=== PATIENT | female | born 1940 | race Caucasian/White ===

== ENCOUNTER 2019-12-07 10:01 | Emergency (ER) | payer MEDICARE, SELFPAY ==
--- NOTE | ~2019-12-07 | CT_ITS ---
EXAMINATION: CT abdomen pelvis w con INDICATION: Right flank pain after fall TECHNIQUE: Computed tomographic images of the abdomen and pelvis were obtained after the administrati on of 100 cc of Omnipaque 350 intravenous contrast. The dose-length product (DLP) was 565.49 mGy-cm. Automated exposure control and iterative reconstruction technique were employed. COMPARISON: 02/02/2017 FINDINGS: Minimal dependent atelectasis is present in the lung bases. The heart size is normal. The l iver, spleen, pancreas, gallbladder, and adrenal glands are normal. The kidneys are unremarkable. The re is calcified atherosclerosis of the aorta and many of the other arteries. No pathologically enlarg ed abdominal or pelvic lymph nodes are identified. There is no free intraperitoneal gas or evidence o f bowel obstruction. Colonic diverticulosis is present without evidence of diverticulitis. There is m oderate lumbar spondylosis. IMPRESSION: 1. No CT correlate for the patient's symptoms. Reviewed, dictated and finalized at location A. LABORER
[2019-12-07 10:06] VITALS: BP 155/66; PULSE 55; RESP 18; TEMP 36.3; O2SAT 100
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
[2019-12-07 10:48] LABS: Basophils Absolute Auto 0.1 K/mm3 (0.0-0.1); Basophils Percent Auto 1.1 % (0.2-1.2); Eosinophils Absolute Auto 0.2 K/mm3 (0-0.3); Eosinophils Percent Auto 2.2 % (0-4.4); Hematocrit 35.3 % (37.0-47.0); Hemoglobin 11.4 g/dL (12.0-15.0); Immature Granulocyte Absolute 0.07 K/mm3 (0.00-0.031); Immature Granulocyte Percent A 0.9 % (0-0.5); Lymphocytes Absolute Auto 1.63 K/mm3 (0.9-3.2); Lymphocytes Percent Auto 19.9 % (18.3-44.2); Mean Corpuscular HGB Conc 32.3 g/dl (32-36); Mean Corpuscular Hemoglobin 32.1 pg (26-34); Mean Corpuscular Volume 99.4 fl (80-100); Mean Platelet Volume 9.3 fl (7.4-10.4); Monocytes Percent Auto 12.1 % (2.6-8.5); Neutrophils Absolute Auto 5.2 K/mm3 (1.3-6.7); Neutrophils Percent Auto 63.8 % (45.5-73.1); Platelet Count Result 317 k/mm3 (150-375); Red Blood Count 3.55 M/mm3 (4.2-5.4); Red Cell Distribution Width 13.4 % (11.5-14.5); White Blood Count 8.2 K/mm3 (4.5-10.0)
[2019-12-07 11:00] LABS: Blood Urea Nitrogen 21 mg/dL (7-17); Calcium 8.8 mg/dL (8.4-10.2); Carbon Dioxide 26 mmol/L (22-30); Chloride 97 mmol/L (98-107); Estimated CRCL calculation 42 ml/min; Estimated Glomerular Filt Rate 60; Glucose 91 mg/dL (65-105); Potassium 4.3 mmol/L (3.4-5.0); Sodium 135 mmol/L (137-145)
[2019-12-07 11:17] LABS: Add Urine Microscopic? NO; Appearance Urine Clear (Clear); Bilirubin Urine Negative (Negative); Blood Urine Negative (Negative); Color Urine Straw (Yellow); Glucose Urine UA Negative (Negative); Ketones Urine Negative (Negative); Leukocyte Esterase Ur Negative LEU/UL (Negative); Nitrate Urine Negative (Negative); Protein Urine Negative (Negative); Urobilinogen Urine Negative mg/dL (<2.0)
[2019-12-07 12:34] VITALS: BP 146/70; PULSE 49; RESP 16; O2SAT 100
== END 2019-12-07 12:39 | disposition home or self-care (01) ==
PROVIDERS: Emergency Medicine Emergency Medical Services; Emergency Provider General Practice; PCP Family Medicine
DX: S39.92XA Unspecified injury of lower back, initial encounter (principal); I25.10 Atherosclerotic heart disease of native coronary artery without angina pectoris; I10 Essential (primary) hypertension; K21.9 Gastro-esophageal reflux disease without esophagitis; E07.9 Disorder of thyroid, unspecified; W22.09XA Striking against other stationary object, initial encounter
CPT/HCPCS: 36415; 74177; 80048; 81003; 85025; 96365; 99284; J0131; Q9967

== ENCOUNTER 2019-12-09 16:44 | Outpatient (CLI) | payer MEDICARE, SELFPAY ==
--- NOTE | ~2019-12-09 | XR_ITS ---
EXAMINATION: XR ribs RT 2V DATE: 12/09/2019 17:35 INDICATION: Right posterior rib pain. TECHNIQUE: 4 views of the right ribs were obtained. COMPARISON: Chest 2 views 06/25/2019 FINDINGS: There is no right-sided pneumonia, pleural effusion, or pneumothorax. The heart size is nor mal. IMPRESSION: 1. No rib fracture. Reviewed, dictated and finalized at location A. OR QUALITY ASSURANCE ENGINEER IMPRESSION: 1. No rib fracture.
== END 2019-12-09 16:45 | disposition home or self-care (01) ==
PROVIDERS: PCP Family Medicine; Visit Provider Family Medicine
DX: R07.81 Pleurodynia (principal)
CPT/HCPCS: 71100

== ENCOUNTER 2020-02-15 06:47 | Emergency (ER) | payer MEDICARE, SELFPAY ==
[2020-02-15] VITALS (15 sets, daily range): BP systolic 150–186; BP diastolic 71–84; PULSE 40–51; RESP 15–23; TEMP 36.8; O2SAT 97–100
--- NOTE | ~2020-02-15 | XR_ITS ---
XR shoulder RT min 2V 02/15/2020 08:04 Indication: Right shoulder pain movement. Procedure: 4 views right shoulder Comparison: No prior studies for comparison. Findings: No acute fracture, subluxation or dislocation. Anatomic alignment. Visualized lung parenchy ma is unremarkable. No focal soft tissue abnormality. Impression: 1: No acute bone or joint abnormality. Reviewed, dictated and finalized at location A. Impression: 1: No acute bone or joint abnormality.
--- NOTE | 2020-02-15 07:27 | PC.NURSE ---
assuming care of pt. Pt is A&Ox4. Pt complains of R arm pain. Pt states pain radiates down her arm. Pt saw her PCP last week and states pain woke her up this morning. Pt states she does not think it is a pinched nerve. Pt able to move extremity slightly but pain is making movement difficult. Pt has visitor at bedside. Pt and family aware of POC.
--- NOTE | 2020-02-15 07:47 | ECG_ITS ---
Measurements Intervals [place] Rate: 41 P: 56 IN: 150 QRS: 3 QRSD: 94 T: 59 QT: 472 QTc: 393 Interpretive Statements SINUS BRADYCARDIA RSR' IN V1 OR V2, CONSIDER RIGHT VENTRICULAR HYPERTROPHY OR RIGHT VCD MINIMAL Q WAVES- ANTEROLAT/LAT LEADS BASELINE ARTIFACT- II, III, AVF ABNORMAL ECG Electronically Signed On 02-15-2020 13:12:40 CDT by Geraldo Nobles D.O.
--- NOTE | 2020-02-15 07:49 | ED.EXTPRO ---
HPI - Extremity Problem General Chief complaint: Extremity Problem,Nontraumatic Stated complaint: arm pain Time Seen by Provider: 02/15/20 06:58 Source: patient and family Mode of arrival: ambulatory Limitations: no limitations History of Present Illness HPI Narrative: This patient is an 79 yo female who presents to ER for evaluation of right shoulder pain, posterior neck pain. Patient states she developed pain to right lower posterior neck that radiates to her right shoulder x 1 week ago. She was seen by her PCP on 02/11/20 for this pain, and she was prescribed a medrol dose joaquim. She has been taking intermittent ibuprofen for her pain. She reports her pain seems to be worsening in her right shoulder over the past 2 days. She has been having difficulty sleeping. She denies associated numbness, tingling, weakness, headache, dizziness, fever, nausea or vomiting. Her pain is worse with laying on the shoulder and movement of her shoulder . She also denies chest pain or sob. She states she is only here for her shoulder pain. MD Complaint: extremity pain Related Data Home Medications Medication Instructions Recorded Confirmed aspirin 81 mg tablet,delayed 81 mg PO DAILY 08/19/19 02/11/20 release levothyroxine 75 mcg tablet 75 mcg PO DAILY 08/19/19 02/11/20 metoprolol tartrate 25 mg tablet 6.25 mg PO BID tablet 08/19/19 02/11/20 isosorbide mononitrate 10 mg tablet 10 mg PO ONCE tablet 02/11/20 02/11/20 Allergies Allergy/AdvReac Type Severity Reaction Status Date / Time cefadroxil Allergy Unknown Unknown Verified 02/15/20 06:52 Sulfa (Sulfonamide Allergy Unknown rash Verified 02/15/20 06:52 Antibiotics) Review of Systems Constitutional: Constitutional: Denies chills and Denies fever(s) Cardiovascular: Cardiovascular: Denies chest pain Respiratory: Respiratory: Denies dyspnea Gastrointestinal: Gastrointestinal: Denies abdominal pain, Denies nausea and Denies vomiting Musculoskeletal: Musculoskeletal: Reports arthralgias (right shoulder) Neurologic: Denies focal weakness and Denies numbness PMFSH Past Medical History Medical History Coronary artery disease Elevated lipids Essential hypertension GERD (gastroesophageal reflux disease) Thyroid disease Surgical History Surgical History H/O: hysterectomy Status post primary angioplasty with coronary stent Social History Social History (Updated 02/11/20 @ 14:54 by Ilsa Baumann) Smoking status: Never smoker Second hand tobacco smoke exposure: No Alcohol intake: never Substance use: never Substance use type: does not use Gender identity (if verbalized by the patient): Female Exam Const: Orientation/consciousness: patient oriented x3 HENMT: Head: normocephalic and atraumatic Face and sinus: face symmetric Mouth: Yes Normal oral and palatal mucosa present Throat: posterior oropharynx normal and uvula midline Eyes: Conjunctivae: conjunctivae normal Pupils: Equal, round and reactive pupils present EOM: EOMs intact bilaterally Neck: Neck: no lymphadenopathy and no meningeal signs Resp: Effort & Inspection: normal respiratory effort Auscultation: clear to auscultation bilaterally, no rales and no wheezes Cardio: Rate: regular rate Rhythm: regular rhythm Peripheral pulses: Peripheral pulses 2+ throughout and radial pulses present bilateral Skin: General skin exam: normal color Rashes: no rashes Neuro: General: patient oriented x3, moves all extremities, no meningeal signs, no focal motor deficits and CN's II-XI intact bilaterally Speech: normal speech Extrem: Right upper extremity: normal capillary refill and shoulder/upper arm tenderness (right anterior shoulder) and abnormal ROM pain with active ROM and pain with passive ROM Course Reevaluation(s) Reevaluation #1: Patient is resting comfortably. She reports her p
[2020-02-15] MEDS: ONDANSETRON HCL ODT 4 MG TABLET PO (08:08)
[2020-02-15] MEDS: HYDROMORPHONE HCL 1 MG/ML INJ 0.5 MG IM (08:09)
[2020-02-15 08:47] LABS: Basophils Absolute Auto 0.1 K/mm3 (0.0-0.1); Basophils Percent Auto 0.7 % (0.2-1.2); Eosinophils Percent Auto 0.3 % (0-4.4); Hematocrit 38.7 % (37.0-47.0); Hemoglobin 12.6 g/dL (12.0-15.0); Immature Granulocyte Absolute 0.06 K/mm3 (0.00-0.031); Immature Granulocyte Percent A 0.6 % (0-0.5); Lymphocytes Absolute Auto 2.62 K/mm3 (0.9-3.2); Lymphocytes Percent Auto 25.3 % (18.3-44.2); Mean Corpuscular HGB Conc 32.6 g/dl (32-36); Mean Corpuscular Hemoglobin 31.7 pg (26-34); Mean Corpuscular Volume 97.5 fl (80-100); Mean Platelet Volume 9.2 fl (7.4-10.4); Monocytes Absolute Auto 1.2 K/mm3 (0.1-0.6); Monocytes Percent Auto 11.7 % (2.6-8.5); Neutrophils Absolute Auto 6.4 K/mm3 (1.3-6.7); Neutrophils Percent Auto 61.4 % (45.5-73.1); Platelet Count Result 351 k/mm3 (150-375); Red Blood Count 3.97 M/mm3 (4.2-5.4); Red Cell Distribution Width 13.4 % (11.5-14.5); White Blood Count 10.4 K/mm3 (4.5-10.0)
[2020-02-15 08:58] LABS: Alanine Aminotransferase 9 U/L (4-35); Alkaline Phosphatase 108 U/L (38-126); Aspartate Amino Transferase 20 U/L (14-36); Bilirubin,Total 0.4 mg/dL (0.2-1.3); Blood Urea Nitrogen 24 mg/dL (7-17); Calcium 8.9 mg/dL (8.4-10.2); Carbon Dioxide 28 mmol/L (22-30); Chloride 99 mmol/L (98-107); Estimated CRCL calculation 42 ml/min; Estimated Glomerular Filt Rate 60; Glucose 83 mg/dL (65-105); Potassium 4.3 mmol/L (3.4-5.0); Sodium 134 mmol/L (137-145)
== END 2020-02-15 09:43 | disposition home or self-care (01) ==
PROVIDERS: Emergency Provider General Practice; PCP Family Medicine
DX: M25.511 Pain in right shoulder (principal); I25.10 Atherosclerotic heart disease of native coronary artery without angina pectoris; I10 Essential (primary) hypertension; K21.9 Gastro-esophageal reflux disease without esophagitis; E07.9 Disorder of thyroid, unspecified; Z95.5 Presence of coronary angioplasty implant and graft; R00.1 Bradycardia, unspecified; R94.31 Abnormal electrocardiogram [ECG] [EKG]
CPT/HCPCS: 36415; 73030; 80053; 85025; 93005; 96372; 99283; A9270; J1170

== ENCOUNTER 2020-03-05 12:17 | Outpatient (CLI) | payer MEDICARE, SELFPAY ==
--- NOTE | ~2020-03-05 | XR_ITS ---
EXAMINATION: XR hip BI 2V w AP pelvis DATE: 03/05/2020 12:56 INDICATION: Hip pain TECHNIQUE: AP view the pelvis and two views of the hips were obtained. COMPARISON: 10/12/2019 FINDINGS: No fracture is identified. There is moderate bilateral hip osteoarthritis. Bone alignment i s normal. The visualized soft tissues are unremarkable. IMPRESSION: 1. Moderate bilateral hip osteoarthritis without acute findings. Reviewed, dictated and finalized at location A.
--- NOTE | ~2020-03-05 | XR_ITS ---
EXAMINATION: XR sacrum coccyx min 2V INDICATION: Sacrococcygeal disorders, not elsewhere classified TECHNIQUE: Three views of the sacrum and coccyx are obtained. COMPARISON: None available FINDINGS: There is a questionable age-indeterminate transverse fracture of the sacrum. No additional acute osseous findings are evident. Moderate lumbar spondylosis is noted. The bowel gas pattern is no rmal. IMPRESSION: 1. Possible age-indeterminate sacral fracture. Reviewed, dictated and finalized at location A.
== END 2020-03-05 12:18 | disposition home or self-care (01) ==
PROVIDERS: PCP Family Medicine; Visit Provider Physician Assistant
DX: Z91.81 History of falling (principal); M25.551 Pain in right hip; M25.552 Pain in left hip; M53.3 Sacrococcygeal disorders, not elsewhere classified; M16.0 Bilateral primary osteoarthritis of hip
CPT/HCPCS: 72220; 73521

== ENCOUNTER 2020-06-02 07:04 | Outpatient (NON) | payer MEDICARE, SELFPAY ==
[2020-06-02 18:54] LABS: SARS-CoV-2 RNA PCR Negative
== END 2020-06-02 07:05 ==
PROVIDERS: PCP Family Medicine; Visit Provider Physician Assistant
DX: Z20.828 Contact with and (suspected) exposure to other viral communicable diseases (principal); R05 Cough
CPT/HCPCS: 87635; C9803; U0003

== ENCOUNTER 2020-11-11 16:40 | Emergency (ER) | payer MEDICARE, SELFPAY ==
--- NOTE | ~2020-11-11 | XR_ITS ---
EXAMINATION: XR elbow RT min 3V DATE: 11/11/2020 17:08 INDICATION: Right elbow injury. TECHNIQUE: 4 views of right elbow were obtained. COMPARISON: None. FINDINGS: Bone alignment is normal. No fracture. Joint spaces are normal. There are enthesophytes at the medial and lateral humeral epicondyles. No elbow joint effusion. IMPRESSION: 1. No fracture. Reviewed, dictated and finalized at location A. ICLE BOARD SUPERVISOR IMPRESSION: 1. No fracture.
--- NOTE | ~2020-11-11 | XR_ITS ---
EXAMINATION: XR wrist RT min 3V DATE: 11/11/2020 17:07 INDICATION: Right wrist injury. TECHNIQUE: 4 views of right wrist were obtained. COMPARISON: Right wrist radiographs 05/05/16 FINDINGS: There is a comminuted fracture of distal radius with involvement of the distal articular mullen rface and distal radioulnar joint. The main distal fracture fragment demonstrates impaction and dorsa l angulation. There is 6 degrees dorsal tilt of the distal articular surface. Ulnar styloid is intact . There is mild osteoarthritis of first carpometacarpal joint. IMPRESSION: 1. Comminuted fracture of distal radius. Reviewed, dictated and finalized at location A. OMER CARE PROFESSIONAL
[2020-11-11 16:43] VITALS: BP 118/95; PULSE 87; RESP 18; TEMP 36.4; O2SAT 95
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
--- NOTE | 2020-11-11 17:25 | PC.NURSE ---
1725 - Patient uses walker and wheelchair at home with assistance of her due to prior stroke with residual weakness. Per wheelchair at home is available and he is home to take care of her and help her get around their home.
== END 2020-11-11 17:58 | disposition home or self-care (01) ==
PROVIDERS: Emergency Provider Emergency Medicine; PCP Family Medicine
DX: S52.571A Other intraarticular fracture of lower end of right radius, initial encounter for closed fracture (principal); I12.9 Hypertensive chronic kidney disease with stage 1 through stage 4 chronic kidney disease, or unspecified chronic kidney disease; N18.30 Chronic kidney disease, stage 3 unspecified; K21.9 Gastro-esophageal reflux disease without esophagitis; M19.90 Unspecified osteoarthritis, unspecified site; W01.0XXA Fall on same level from slipping, tripping and stumbling without subsequent striking against object, initial encounter
CPT/HCPCS: 29125; 73080; 73110; 99284

== ENCOUNTER 2021-05-23 20:42 | Emergency (ER) | payer MEDICARE, SELFPAY ==
--- NOTE | ~2021-05-23 | XR_ITS ---
EXAMINATION: XR hand RT 2V DATE: 05/23/2021 21:04 INDICATION: Right hand injury. TECHNIQUE: 2 views of right hand were obtained. COMPARISON: Right wrist radiograph 11/11/2020. FINDINGS: Bone alignment is normal. There is a healed fracture of distal radius. There is chronic amp utation of third digit at the middle phalanx. There is mild osteoarthritis of first carpometacarpal j oint and some of the metacarpophalangeal joints and interphalangeal joints. IMPRESSION: 1. Interval healing of a fracture of distal radius. 2. Mild polyarticular osteoarthritis. Reviewed, dictated and finalized at location A.
--- NOTE | ~2021-05-23 | XR_ITS ---
EXAMINATION: XR wrist RT 2V DATE: 05/23/2021 21:04 INDICATION: Right wrist injury and pain. TECHNIQUE: 2 views of right wrist were obtained. COMPARISON: Right wrist radiographs 11/11/2020 FINDINGS: There is a healed fracture of distal radius. The distal articular surface demonstrates 2 de grees dorsal angulation. No acute fracture. There is mild osteoarthritis of first carpometacarpal vincent nt. IMPRESSION: 1. Interval healing of a fracture of distal radius. 2. Mild osteoarthritis of first carpometacarpal joint. Reviewed, dictated and finalized at location A.
[2021-05-23 20:49] VITALS: BP 153/69; PULSE 51; RESP 16; TEMP 36.1; O2SAT 98
--- NOTE | 2021-05-23 22:57 | ED.FALL ---
HPI - Fall General Chief Complaint: Fall Stated Complaint: fall, right hand pain Time Seen by Provider: 05/23/21 22:45 Source: patient and family Mode of arrival: ambulatory Limitations: no limitations History of Present Illness HPI Narrative: 80-year-old female History of a stroke which sometimes gives her some trouble with walking especially when is dark out Tonight she fell when she let the dog out and landed on her right wrist That wrist was fractured about 3 months ago and she is worried she might of reinjured it She has an abrasion but no deformity No other injuries and there were no symptoms of any sort prior to the incident Related Data Allergies Allergy/AdvReac Type Severity Reaction Status Date / Time cefadroxil Allergy Unknown Itching Verified 04/12/21 09:58 Sulfa (Sulfonamide Allergy Unknown rash Verified 04/12/21 09:58 Antibiotics) Review of Systems Musculoskeletal: Musculoskeletal: Denies back pain, Reports arthralgias, Denies joint swelling and Denies muscle cramps Neurologic: Reports focal weakness (Old) and Denies numbness PMFSH Past Medical History Medical History Bilateral hip pain Chronic kidney disease, stage 3 unspecified Coronary artery disease Elevated lipids Essential hypertension Fracture of distal end of radius GERD (gastroesophageal reflux disease) Osteoarthritis, hip, bilateral Pain in the coccyx Sacral fracture Status post fall Thyroid disease Surgical History Surgical History H/O: hysterectomy Status post primary angioplasty with coronary stent Family History Family History Sibling Hypertension Family history of diabetes mellitus in first degree relative Family history of arthritis Patient's brother is in good health Mother Family history of pancreatic cancer Diabetes mellitus Family history of cardiovascular disease Family history of malignant neoplasm Father Asthma Other Family history of tuberculosis Social History Social History Smoking status: Never smoker Second hand tobacco smoke exposure: No Alcohol intake: never Substance use: never Substance use type: does not use Gender identity (if verbalized by the patient): Female Exam Const: General: cooperative, no acute distress and alert Orientation/consciousness: patient oriented x3 (alert) Other: Very pleasant lady in no distress HENMT: Head: normal to inspection, normocephalic, atraumatic, no contusions and no hematomas Other: Hard of hearing Eyes: Conjunctivae: conjunctivae normal EOM: EOMs intact bilaterally Neck: Neck: normal visual inspection, supple and no JVD Resp: Effort & Inspection: normal respiratory effort and not labored Auscultation: other (BS =) Skin: General skin exam: normal color and no rashes or lesions noted Neuro: General: patient oriented x3 (alert) and moves all extremities Speech: normal speech Extrem: Other: Minor abrasion on the right palm There is still just a little bit of swelling to the distal part of the right forearm but no new deformities and only minimally tender with good range of motion Neurovascular intact Psych: Affect: normal affect Course Vital Signs Vital signs: Vital Signs Temperature 36.1 C L 05/23/21 20:49 Pulse Rate 51 L 05/23/21 20:49 Respiratory Rate 16 05/23/21 20:49 Blood Pressure 153/69 H 05/23/21 20:49 Pulse Oximetry 98 05/23/21 20:49 Temperature 36.1 C L 05/23/21 20:49 Pulse Rate 51 L 05/23/21 20:49 Respiratory Rate 16 05/23/21 20:49 Blood Pressure 153/69 H 05/23/21 20:49 Pulse Oximetry 98 05/23/21 20:49 MDM - Fall Imaging Data Radiologist's impression: ITS Impressions Wrist X-Ray 05/23/21 21:05 IMPRESSION: 1. Interval healing of a frac
== END 2021-05-23 23:20 | disposition home or self-care (01) ==
PROVIDERS: Emergency Provider Emergency Medicine; PCP Family Medicine
DX: S60.511A Abrasion of right hand, initial encounter (principal); I69.398 Other sequelae of cerebral infarction; R26.89 Other abnormalities of gait and mobility; I12.9 Hypertensive chronic kidney disease with stage 1 through stage 4 chronic kidney disease, or unspecified chronic kidney disease; N18.30 Chronic kidney disease, stage 3 unspecified; I25.10 Atherosclerotic heart disease of native coronary artery without angina pectoris; K21.9 Gastro-esophageal reflux disease without esophagitis; M16.0 Bilateral primary osteoarthritis of hip; E07.9 Disorder of thyroid, unspecified; Z95.5 Presence of coronary angioplasty implant and graft; M18.9 Osteoarthritis of first carpometacarpal joint, unspecified; S52.501D Unspecified fracture of the lower end of right radius, subsequent encounter for closed fracture with routine healing; W19.XXXD Unspecified fall, subsequent encounter; W18.30XA Fall on same level, unspecified, initial encounter
CPT/HCPCS: 73100; 73120; 99283

== ENCOUNTER → 2021-06-01 09:51 | Outpatient (CLI) | payer MEDICARE, SELFPAY ==
--- NOTE | ~2021-06-01 | XR_ITS ---
EXAMINATION: XR chest 2V DATE: 06/01/2021 10:18 INDICATION: Shortness of breath TECHNIQUE: frontal and lateral views of the chest were obtained. COMPARISON: Chest radiograph dated 12/09/2019 FINDINGS: The lungs remain clear with no focal airspace opacities, pulmonary edema, pleural effusion or pneumot horax. The cardiomediastinal silhouette is normal. Mild thoracic spondylosis. IMPRESSION: 1. No acute cardiopulmonary disease. Reviewed, dictated and finalized at location A.
== END ==
PROVIDERS: PCP Family Medicine; Visit Provider Physician Assistant
DX: R06.02 Shortness of breath (principal)
CPT/HCPCS: 71046

== ENCOUNTER 2021-07-02 15:07 | Outpatient (CLI) | payer MEDICARE, SELFPAY ==
--- NOTE | ~2021-07-02 | CT_ITS ---
EXAMINATION: CT abdomen pelvis wo con DATE: 07/02/2021 15:47 INDICATION: Right upper quadrant abdominal pain TECHNIQUE: Computed tomography (CT) of the abdomen and pelvis was performed without intravenous contr ast. Automated exposure control and iterative reconstruction technique were employed. Exam dose: 582 .61 mGy-cm total exam DLP. COMPARISON: 12/07/2019 CT abdomen pelvis FINDINGS: The lung bases are clear. Normal heart size. No pericardial or pleural effusion. The liver, gallbladder, bile ducts, spleen, pancreas, pancreatic duct, and adrenal glands and kidneys appear unremarkable on this limited noncontrast examination. No urinary tract calculus or hydrourete ronephrosis. The urinary bladder is unremarkable. Status post hysterectomy. There is atherosclerotic calcification but normal caliber of the abdominal aorta. No intraperitoneal or retroperitoneal or pelvic mass lesion or adenopathy or ascites. Small sliding hiatal hernia. There are numerous diverticula of the sigmoid and descending colon primarily; no CT evidence of diver ticulitis. The appendix is not visualized. No bowel obstruction, bowel wall thickening, pneumatosis o r intraperitoneal free air is detected. Degenerative changes of the thoracic and lumbar spine. Bilateral hip osteoarthritis. No suspicious os teolytic or osteoblastic lesions are noted. IMPRESSION: Small sliding hiatal hernia Diverticulosis of the colon; no CT evidence of diverticulitis Status post hysterectomy Reviewed, dictated and finalized at [facility]. Reviewed, dictated and finalized at location [facility].
== END 2021-07-02 15:08 | disposition home or self-care (01) ==
LOC: ANHIMG 15:13
PROVIDERS: PCP Family Medicine; Visit Provider Physician Assistant
DX: R10.9 Unspecified abdominal pain (principal); K44.9 Diaphragmatic hernia without obstruction or gangrene; K57.30 Diverticulosis of large intestine without perforation or abscess without bleeding
CPT/HCPCS: 74176

== ENCOUNTER → 2021-12-08 12:34 | Outpatient (CLI) | payer MEDICARE, SELFPAY ==
--- NOTE | ~2021-12-08 | MM_ITS ---
EXAMINATION: MM screening billy BI w tomas HISTORY: Screening mammogram TECHNIQUE: Craniocaudal and mediolateral oblique 3-D tomosynthesis images were obtained and synthetic 2-D images were generated. CAD analysis was submitted and interpreted. COMPARISON: 11/02/2018 bilateral screening mammogram 10/31/2017 diagnostic left mammogram and limited left breast ultrasound 10/13/2017 bilateral screening mammogram BREAST PARENCHYMAL COMPOSITION: There are scattered areas of fibroglandular density. FINDINGS: There is no evidence of suspicious mass, calcification, or architectural distortion to sugg est malignancy in either breast. There has been no suspicious interval change. IMPRESSION: 1. No mammographic evidence of malignancy. 2. Recommend routine screening mammography in one year. BI-RADS Category 1: Negative Reviewed, dictated and finalized at location [facility]. O MATE
== END ==
PROVIDERS: PCP Family Medicine; Visit Provider Family Medicine
DX: Z12.31 Encounter for screening mammogram for malignant neoplasm of breast (principal)
CPT/HCPCS: 77063; 77067

== ENCOUNTER 2022-04-06 12:35 | Outpatient (CLI) | payer MEDICARE, SELFPAY ==
--- NOTE | 2022-04-06 12:48 | ECHO_ITS ---
Patient Info Name: Quynh Cui Age: 81 years : 1940 Gender: Female Ht: 63 in Wt: 165 lbs BSA: 1.85 m2 HR: 119 bpm BP: 118 / 82 mmHg Heart Rhythm: Atrial Fibrillation Technical Quality: Good Exam Date: 04/06/2022 1:01 PM Exam Location: [facility] Patient Status: Outpatient Admit Date: 04/06/2022 Staff Ordering Physician: Geraldo Nobles DO Toll Booth Operator: Celine Cunningham RDCS Attending Provider: Geraldo Nobles DO Exam Type: CA echo doppler color flow Study Info Indications I51.89 - Other ill-defined heart diseases Complete two-dimensional, color flow and Doppler transthoracic echocardiogram is performed. Summary 1. Complete two-dimensional, color flow and Doppler transthoracic echocardiogram is performed. 2. Left ventricular chamber dimension is normal. 3. Left ventricular systolic function is normal, estimated at 55-60%. 4. The left ventricular diastolic function is abnormal. 5. E/e' 10 is mildly elevated. 6. Atrial fibrillation. 7. Right ventricular systolic function is reduced and with abnormal TAPSE 1.5 cm. 8. Left atrial chamber dimension is mildly enlarged. 9. There is trace aortic valve regurgitation. 10. There is trace mitral valve regurgitation. 11. There is mild tricuspid valve regurgitation. 12. No pulmonary hypertension, estimated pulmonary arterial systolic pressure is 27 mmHg. 13. There is trace pulmonic regurgitation. Left Ventricle E/e' 10 is mildly elevated. Atrial fibrillation. Left ventricular chamber dimension is normal. Left ventricular systolic function is normal, estimated at 55-60%. The left ventricular diastolic function is abnormal. Right Ventricle Right ventricular systolic function is reduced and with abnormal TAPSE 1.5 cm. Right ventricular chamber dimension is normal. Left Atria Left atrial chamber dimension is mildly enlarged. Right Atria Right atrial chamber dimension is normal. Aortic Valve The aortic valve is trileaflet. There is no aortic valve stenosis. There is trace aortic valve regurgitation. Pulmonic Valve There is trace pulmonic regurgitation. Mitral Valve There is no mitral valve stenosis. There is trace mitral valve regurgitation. Tricuspid Valve There is mild tricuspid valve regurgitation. No pulmonary hypertension, estimated pulmonary arterial systolic pressure is 27 mmHg. Pericardium/Pleural There is no pericardial effusion. Inferior Vena Cava Normal inferior vena cava with >50% collapse upon inspiration consistent with normal right atrial pressure, 5 mmHg. Aorta The aortic root size at the sinus of Valsalva is normal. Left Ventricular Outflow Tract Name Value Normal LVOT 2D LVOT Diameter 1.8 cm LVOT Doppler LVOT Peak Gradient 3 mmHg LVOT Mean Gradient 2 mmHg LVOT VTI 18 cm LVOT VTI/AV VTI Ratio 0.8 LVOT Stroke Volume 46 ml LVOT CO 3.2 l/min LVOT CI 1.7 l/min/m2 Pulmo
== END 2022-04-06 12:36 | disposition home or self-care (01) ==
PROVIDERS: PCP Family Medicine; Visit Provider Internal Medicine Cardiovascular Disease
DX: I36.1 Nonrheumatic tricuspid (valve) insufficiency (principal)
CPT/HCPCS: 93306

== ENCOUNTER 2022-04-13 10:06 | Emergency (ER) | payer MEDICARE, SELFPAY ==
[2022-04-13] VITALS (10 sets, daily range): BP systolic 117–145; BP diastolic 83–96; PULSE 100–138; RESP 19–22; TEMP 36.4; O2SAT 96–99
--- NOTE | ~2022-04-13 | XR_ITS ---
EXAMINATION: XR chest 2V 04/13/2022 11:28 INDICATION: Dyspnea PROCEDURE: 2 view chest COMPARISON: Comparison to multiple prior studies sequentially, with oldest reviewed study dated 05/26. FINDINGS: The lungs are clear. The cardiomediastinal silhouette is within normal limits. There are no pleural effusions. There is no pneumothorax suspected. IMPRESSION: 1: NO ACUTE CARDIOPULMONARY DISEASE. Reviewed, dictated and finalized at location [facility].
--- NOTE | 2022-04-13 10:21 | ECG_ITS ---
Measurements Intervals [place] Rate: 120 P: [place]: 0 QRS: 7 QRSD: 78 T: 46 QT: 293 QTc: 416 Interpretive Statements ATRIAL FIBRILLATION WITH RAPID VENTRICULAR RESPONSE NONSPECIFIC ST CHANGES COMPARED TO ECG 02/15/2020 08:19:13 ATRIAL FIBRILLATION NOW PRESENT ST (T WAVE) DEVIATION NOW PRESENT Electronically Signed On 04-13-2022 12:45:39 CDT by Jessika Pascal M.D.
--- NOTE | 2022-04-13 10:40 | ED.SOB ---
HPI - SOB/Dyspnea General Chief Complaint: Shortness of Breath/Dyspnea Stated Complaint: having trouble breathing Time Seen by Provider: 04/13/22 10:22 Source: patient History of Present Illness HPI Narrative: Patient presents with shortness of breath. Reports been feeling short of breath for the past couple weeks she has been seeing her cullet crusher she is attempted albuterol inhaler which does give her some relief today her symptoms are more severe she is unable to the cullet crusher that she came the ER for further evaluation. Reports sensation of not being able to get enough air denies any focal areas of pain such as chest pain headache. She denies any nausea vomiting or diarrhea. Related Data Home Medications Medication Instructions Recorded Confirmed losartan 25 mg tablet tablet 04/13/22 04/13/22 Allergies Allergy/AdvReac Type Severity Reaction Status Date / Time cefadroxil Allergy Unknown Itching Verified 04/13/22 10:14 Sulfa (Sulfonamide Allergy Unknown rash Verified 04/13/22 10:14 Antibiotics) Review of Systems Review of Systems: CONSTITUTIONAL: Denies fever, chills, or sweats. EYES: Denies visual changes, redness, or discharge. ENT: Denies rhinorrhea, congestion, sore throat, or otalgia. CARDIOVASCULAR: Denies chest pain, palpitations, or edema. RESPIRATORY: Reports chronic cough which is improved this morning reports shortness of breath GASTROINTESTINAL: Denies abdominal pain, nausea, vomiting, or diarrhea. GENITOURINARY: Denies dysuria or hematuria. SKIN: Denies rash or itching. MUSCULOSKELETAL: Denies back pain, joint pain, or myalgia. NEUROLOGIC: Denies headache, numbness, dizziness, or weakness. PSYCHIATRIC: Denies anxiety or depression. All systems reviewed & are unremarkable except as noted in HPI and below PMFSH Past Medical History Medical History Bilateral hip pain Chronic kidney disease, stage 3 unspecified Coronary artery disease Elevated lipids Essential hypertension Fracture of distal end of radius GERD (gastroesophageal reflux disease) Obesity Osteoarthritis, hip, bilateral Pain in the coccyx Sacral fracture Status post fall Thyroid disease Surgical History Surgical History H/O: hysterectomy Status post primary angioplasty with coronary stent Family History Family History Sibling Hypertension Family history of diabetes mellitus in first degree relative Family history of arthritis Patient's brother is in good health Mother Family history of pancreatic cancer Diabetes mellitus Family history of cardiovascular disease Family history of malignant neoplasm Father Asthma Other Family history of tuberculosis Social History Social History Social History: Smoking status: Never smoker Second hand tobacco smoke exposure: No Alcohol intake: never Substance use: never Substance use type: does not use Gender identity (if verbalized by the patient): Female Sexual Orientation (if Verbalized by the Patient): Straight or Heterosexual Exam Narrative: GENERAL: Well-appearing, well-nourished, and in no acute distress. HEAD: Normocephalic, atraumatic. EYES: PERRLA and EOMI. ENT: Nares clear, no rhinorrhea or epistaxis. Mucous membranes moist. NECK: Supple. No masses. No JVD CHEST: Clear to auscultation. No respiratory distress. No wheezes rales or rhonchi HEART: Irregular tachycardia no murmur heard. Normal peripheral pulses. ABDOMEN: Soft, nontender, nondistended, normal active bowel sounds. EXTREMITIES: Normal range of motion. No edema. SKIN: Warm, dry, no rash. NEURO: No focal deficits. Alert and oriented x3. PSYCH: Normal mood and affect. Course Reevaluation(s) Reevaluation #1: Patient now resting comfortably feels much i
[2022-04-13 10:53] LABS: Basophils Absolute Auto 0.1 K/mm3 (0.0-0.1); Basophils Percent Auto 1.1 % (0.2-1.2); Eosinophils Absolute Auto 0.1 K/mm3 (0-0.3); Eosinophils Percent Auto 1.1 % (0-4.4); Hematocrit 37.4 % (37.0-47.0); Hemoglobin 12.2 g/dL (12.0-15.0); Immature Granulocyte Absolute 0.04 K/mm3 (0.00-0.031); Immature Granulocyte Percent A 0.5 % (0-0.5); Lymphocytes Absolute Auto 1.42 K/mm3 (0.9-3.2); Lymphocytes Percent Auto 16.1 % (18.3-44.2); Mean Corpuscular HGB Conc 32.6 g/dl (32-36); Mean Corpuscular Hemoglobin 31.9 pg (26-34); Mean Corpuscular Volume 97.7 fl (80-100); Mean Platelet Volume 9.1 fl (7.4-10.4); Monocytes Absolute Auto 0.9 K/mm3 (0.1-0.6); Monocytes Percent Auto 10.3 % (2.6-8.5); Neutrophils Absolute Auto 6.3 K/mm3 (1.3-6.7); Neutrophils Percent Auto 70.9 % (45.5-73.1); Platelet Count Result 369 k/mm3 (150-375); Red Blood Count 3.83 M/mm3 (4.2-5.4); Red Cell Distribution Width 13.7 % (11.5-14.5); White Blood Count 8.8 K/mm3 (4.5-10.0)
[2022-04-13 10:58] LABS: Appearance Urine Clear (Clear); Bilirubin Urine Negative (Negative); Blood Urine Negative (Negative); Color Urine Yellow (Yellow); Glucose Urine UA Negative (Negative); Ketones Urine Negative (Negative); Leukocyte Esterase Ur Negative LEU/UL (Negative); Nitrate Urine Negative (Negative); Protein Urine Negative (Negative); Urobilinogen Urine 0.2 mg/dL (<2.0); pH Urine 5.5 (5.0-9.0)
[2022-04-13 11:03] LABS: Add Urine Microscopic? NO
[2022-04-13] MEDS: SODIUM CHLORIDE 0.9% IV 500 ML 999 ML IV CONT (11:09)
[2022-04-13] MEDS: dilTIAZem HCl INJ 25 MG/5 ML VIAL 10 MG IV PUSH (11:10)
[2022-04-13 11:16] LABS: Alanine Aminotransferase 6 U/L (6-35); Albumin Level 3.7 g/dL (3.5-5.1); Alkaline Phosphatase 126 U/L (38-126); Anion Gap 7 mmol/L (8-16); Aspartate Amino Transferase 22 U/L (14-36); Bilirubin,Total 0.4 mg/dL (0.2-1.3); Blood Urea Nitrogen 23 mg/dL (7-17); Calcium 8.7 mg/dL (8.4-10.2); Carbon Dioxide 23 mmol/L (22-30); Chloride 104 mmol/L (98-107); Estimated CRCL calculation 38 ml/min; Estimated Glomerular Filt Rate 53; Glucose 93 mg/dL (65-110); Potassium 4.3 mmol/L (3.4-5.0); Sodium 134 mmol/L (137-145)
== END 2022-04-13 12:44 | disposition home or self-care (01) ==
PROVIDERS: Emergency Provider Emergency Medicine; PCP Family Medicine
DX: I48.91 Unspecified atrial fibrillation (principal); I12.9 Hypertensive chronic kidney disease with stage 1 through stage 4 chronic kidney disease, or unspecified chronic kidney disease; N18.30 Chronic kidney disease, stage 3 unspecified; K21.9 Gastro-esophageal reflux disease without esophagitis; M19.90 Unspecified osteoarthritis, unspecified site; I25.10 Atherosclerotic heart disease of native coronary artery without angina pectoris
CPT/HCPCS: 36415; 71046; 80053; 81003; 85025; 93005; 96361; 96374; 99284; J7040

== ENCOUNTER 2022-04-21 11:54 | Emergency (ER) | payer MEDICARE, SELFPAY ==
[2022-04-21] VITALS (24 sets, daily range): BP systolic 98–132; BP diastolic 67–98; PULSE 64–124; RESP 18–24; TEMP 36.6; O2SAT 97–99
--- NOTE | ~2022-04-21 | XR_ITS ---
EXAMINATION: XR chest 2V DATE: 04/21/2022 12:41 INDICATION: Shortness of breath TECHNIQUE: AP and lateral views of the chest are obtained. COMPARISON: 04/13/2022 FINDINGS: The lungs are free of acute opacities. No pleural effusion or pneumothorax. The cardiomedia stinal silhouette is normal. There is moderate thoracic spondylosis. IMPRESSION: 1. No acute cardiopulmonary abnormality. Reviewed, dictated and finalized at location B.
--- NOTE | 2022-04-21 12:14 | ECG_ITS ---
Measurements Intervals [place] Rate: 106 P: [place]: 0 QRS: 18 QRSD: 91 T: 52 QT: 329 QTc: 438 Interpretive Statements ATRIAL FIBRILLATION WITH RAPID VENTRICULAR RESPONSE INCOMPLETE RIGHT BUNDLE BRANCH BLOCK BASELINE ARTIFACT- I, II, III, AVR, AVL, V4 ABNORMAL ECG Electronically Signed On 04-21-2022 13:04:15 CDT by Geraldo Nobles D.O.
--- NOTE | 2022-04-21 12:42 | PC.NURSE ---
Tele monitoring and pul ox applied at 1215
[2022-04-21 12:44] LABS: Basophils Absolute Auto 0.1 K/mm3 (0.0-0.1); Basophils Percent Auto 1.3 % (0.2-1.2); Eosinophils Absolute Auto 0.2 K/mm3 (0-0.3); Eosinophils Percent Auto 1.8 % (0-4.4); Hematocrit 37.7 % (37.0-47.0); Hemoglobin 12.5 g/dL (12.0-15.0); Immature Granulocyte Absolute 0.05 K/mm3 (0.00-0.031); Immature Granulocyte Percent A 0.6 % (0-0.5); Lymphocytes Absolute Auto 1.64 K/mm3 (0.9-3.2); Lymphocytes Percent Auto 19.2 % (18.3-44.2); Mean Corpuscular HGB Conc 33.2 g/dl (32-36); Mean Corpuscular Hemoglobin 32.3 pg (26-34); Mean Corpuscular Volume 97.4 fl (80-100); Mean Platelet Volume 9.4 fl (7.4-10.4); Monocytes Absolute Auto 0.9 K/mm3 (0.1-0.6); Neutrophils Absolute Auto 5.6 K/mm3 (1.3-6.7); Neutrophils Percent Auto 66.1 % (45.5-73.1); Platelet Count Result 376 k/mm3 (150-375); Red Blood Count 3.87 M/mm3 (4.2-5.4); Red Cell Distribution Width 13.8 % (11.5-14.5); White Blood Count 8.5 K/mm3 (4.5-10.0)
[2022-04-21 12:54] LABS: INR 1.4; Prothrombin Time 16.4 Seconds (11.1-14.7)
[2022-04-21 12:55] LABS: Partial Thromboplastin Time 35.2 SECONDS (22.3-36.8)
[2022-04-21 12:56] LABS: Alanine Aminotransferase 6 U/L (6-35); Albumin Level 3.9 g/dL (3.5-5.1); Alkaline Phosphatase 154 U/L (38-126); Anion Gap 7 mmol/L (8-16); Aspartate Amino Transferase 20 U/L (14-36); Bilirubin,Total 0.4 mg/dL (0.2-1.3); Blood Urea Nitrogen 23 mg/dL (7-17); Calcium 8.4 mg/dL (8.4-10.2); Carbon Dioxide 24 mmol/L (22-30); Chloride 104 mmol/L (98-107); Estimated CRCL calculation 38 ml/min; Estimated Glomerular Filt Rate 53; Glucose 93 mg/dL (65-110); Lipase 194 U/L (23-300); Potassium 4.6 mmol/L (3.4-5.0); Sodium 135 mmol/L (137-145)
[2022-04-21 13:06] LABS: Troponin I < 0.012 ng/mL (0.000-0.034)
[2022-04-21] MEDS: METOPROLOL TARTRATE 6.25 MG TABLET PO (13:25)
--- NOTE | 2022-04-21 13:58 | ED.WEAKNESS ---
HPI - Weakness General Chief complaint: Weakness Stated complaint: a-fib, sob Time Seen by Provider: 04/21/22 12:25 History of Present Illness HPI Narrative: Patient is an 81-year-old female who presents ER with irregular heartbeat. Has history of atrial fibrillation. Recently seen in the ER and given diltiazem to slow down her heart rate. She had her metoprolol reinitiated. Apparently she was taking 1/4 tablet of 25 mg metoprolol twice a day and was supposed to be increased to half tablet twice a day. She has not increased her dosage. She is having no chest pain or chest pressure. No dizziness. She reports just generalized fatigue. complains that she does not want to get out of bed and she just sleeps all the time. Patient reports chronic cough and chronic shortness of breath related to asthma and she will use her albuterol which helps. Patient has no new swelling in her legs. No orthopnea. Related Data Home Medications Medication Instructions Recorded Confirmed losartan 25 mg tablet tablet 04/13/22 04/21/22 Allergies Allergy/AdvReac Type Severity Reaction Status Date / Time cefadroxil Allergy Unknown Itching Verified 04/21/22 11:04 Sulfa (Sulfonamide Allergy Unknown rash Verified 04/21/22 11:04 Antibiotics) Review of Systems Review of Systems: All systems reviewed & are unremarkable except as noted in HPI and below Constitutional: Constitutional: Denies chills, Reports fatigue and Denies fever(s) ENT: Denies nasal congestion and Denies sore throat Cardiovascular: Cardiovascular: Denies chest pain, Denies rapid heart rate and Denies radiating jaw, neck or arm pain Respiratory: Respiratory: Reports cough, Reports dyspnea and Denies wheezing Gastrointestinal: Gastrointestinal: Denies abdominal pain, Denies nausea and Denies vomiting [facility] Past Medical History Medical History Bilateral hip pain Chronic kidney disease, stage 3 unspecified Coronary artery disease Elevated lipids Essential hypertension Fracture of distal end of radius GERD (gastroesophageal reflux disease) Obesity Osteoarthritis, hip, bilateral Pain in the coccyx Sacral fracture Status post fall Thyroid disease Surgical History Surgical History H/O: hysterectomy Status post primary angioplasty with coronary stent Family History Family History Sibling Hypertension Family history of diabetes mellitus in first degree relative Family history of arthritis Patient's brother is in good health Mother Family history of pancreatic cancer Diabetes mellitus Family history of cardiovascular disease Family history of malignant neoplasm Father Asthma Other Family history of tuberculosis Social History Social History Social History: Smoking status: Never smoker Second hand tobacco smoke exposure: No Alcohol intake: never Substance use: never Substance use type: does not use Gender identity (if verbalized by the patient): Female Sexual Orientation (if Verbalized by the Patient): Straight or Heterosexual Exam Narrative: GENERAL: Well-appearing, well-nourished, and in no acute distress. HEAD: Normocephalic, atraumatic. NECK: Supple. CHEST: Clear to auscultation. No respiratory distress. HEART: Irregular regular rate and rhythm. Normal peripheral pulses. ABDOMEN: Soft, nontender, nondistended. EXTREMITIES: Normal range of motion. No edema. SKIN: Warm, dry, no rash. NEURO: Alert and oriented x3. PSYCH: Normal mood and affect. Course Course Emergency Course: Heart rate improved with diltiazem and second half of oral medication for home. Discharge with follow-up with career resource technician which is scheduled for tomorrow. Vital Signs Vital signs: Vital Signs Temperature 97.8 F
[2022-04-21] MEDS: dilTIAZem HCl INJ 25 MG/5 ML VIAL 10 MG IV PUSH (14:39)
[2022-04-21 14:52] LABS: SARS-CoV-2 RNA PCR Negative
[2022-04-21 15:51] LABS: Troponin I < 0.012 ng/mL (0.000-0.034)
== END 2022-04-21 15:41 | disposition home or self-care (01) ==
PROVIDERS: Emergency Medicine; Emergency Provider Emergency Medicine; PCP Family Medicine
DX: I48.91 Unspecified atrial fibrillation (principal); I12.9 Hypertensive chronic kidney disease with stage 1 through stage 4 chronic kidney disease, or unspecified chronic kidney disease; N18.30 Chronic kidney disease, stage 3 unspecified; Z20.822 Contact with and (suspected) exposure to COVID-19
CPT/HCPCS: 36415; 71046; 80053; 83690; 84484; 85025; 85610; 85730; 93005; 96374; 99284; A9270; C9803; U0003; U0005

== ENCOUNTER 2022-07-27 09:51 | Emergency (ER) | payer MEDICARE, SELFPAY ==
[2022-07-27] VITALS (7 sets, daily range): BP systolic 102–128; BP diastolic 78–93; PULSE 88–101; RESP 15–20; TEMP 36.8; O2SAT 90–100
--- NOTE | ~2022-07-27 | CT_ITS ---
EXAMINATION: CT abdomen pelvis w con DATE: 07/27/2022 11:53 INDICATION: Low abdominal pain. TECHNIQUE: Computed tomography (CT) of the abdomen and pelvis was performed with 100 mL Omnipaque 350 intravenous contrast. Automated exposure control and iterative reconstruction technique were employe d. The dose-length product was 557.10 mGy-cm. COMPARISON: CT abdomen and pelvis 07/02/2021 FINDINGS: The visualized portions of the lung bases demonstrate mild atelectasis. No pleural effusion . There is left atrial enlargement of the heart. No pericardial effusion. There is a small sliding hi atal hernia. The liver, gallbladder, spleen, pancreas, and adrenal glands are normal. There is cortic al thinning of the kidneys. There is diverticulosis of the colon without evidence of diverticulitis. The appendix is not visualized. There are no pathologically enlarged lymph nodes. There is no free in traperitoneal fluid. There is thoracolumbar levoscoliosis and severe lumbar spondylosis. IMPRESSION: 1. Small sliding hiatal hernia. Reviewed, dictated and finalized at location A.
--- NOTE | ~2022-07-27 | XR_ITS ---
EXAMINATION: XR chest 2V DATE: 07/27/2022 11:04 INDICATION: Cough and fatigue. TECHNIQUE: Frontal and lateral views of the chest were obtained. COMPARISON: Chest 2 views 04/21/22 FINDINGS: The patient is rotated to her left on the frontal view. No pneumonia, pleural effusion, or pneumothorax. The heart size is normal. IMPRESSION: 1. No acute cardiopulmonary disease. Reviewed, dictated and finalized at location A.
--- NOTE | 2022-07-27 09:59 | ECG_ITS ---
Measurements Intervals [place] Rate: 100 P: [place]: 0 QRS: 25 QRSD: 85 T: 53 QT: 334 QTc: 433 Interpretive Statements ATRIAL FIBRILLATION WITH RAPID VENTRICULAR RESPONSE POSSIBLE RIGHT VENTRICULAR CONDUCTION DELAY [RSR (QR) IN V1/V2] ABNORMAL RHYTHM ECG COMPARED TO ECG 04/21/2022 12:18:08 NO SIGNIFICANT CHANGES Electronically Signed On 07-27-2022 15:23:53 CDT by Mirian Berry M.D.
[2022-07-27 10:35] LABS: Basophils Absolute Auto 0.1 K/mm3 (0.0-0.1); Basophils Percent Auto 0.8 % (0.2-1.2); Eosinophils Absolute Auto 0.1 K/mm3 (0-0.3); Eosinophils Percent Auto 1.8 % (0-4.4); Hemoglobin 12.5 g/dL (12.0-15.0); Immature Granulocyte Absolute 0.03 K/mm3 (0.00-0.031); Immature Granulocyte Percent A 0.4 % (0-0.5); Lymphocytes Absolute Auto 1.01 K/mm3 (0.9-3.2); Lymphocytes Percent Auto 12.9 % (18.3-44.2); Mean Corpuscular HGB Conc 32.9 g/dl (32-36); Mean Corpuscular Hemoglobin 32.2 pg (26-34); Mean Corpuscular Volume 97.9 fl (80-100); Mean Platelet Volume 9.3 fl (7.4-10.4); Monocytes Absolute Auto 0.8 K/mm3 (0.1-0.6); Monocytes Percent Auto 9.8 % (2.6-8.5); Neutrophils Absolute Auto 5.8 K/mm3 (1.3-6.7); Neutrophils Percent Auto 74.3 % (45.5-73.1); Platelet Count Result 330 k/mm3 (150-375); Red Blood Count 3.88 M/mm3 (4.2-5.4); Red Cell Distribution Width 13.8 % (11.5-14.5); White Blood Count 7.9 K/mm3 (4.5-10.0)
[2022-07-27 10:47] LABS: INR 1.4; Prothrombin Time 16.9 Seconds (11.1-14.7)
[2022-07-27 10:48] LABS: Partial Thromboplastin Time 34.9 SECONDS (22.3-36.8)
[2022-07-27 10:51] LABS: Alanine Aminotransferase 10 U/L (6-35); Albumin Level 4.1 g/dL (3.5-5.1); Alkaline Phosphatase 94 U/L (38-126); Anion Gap 11 mmol/L (8-16); Aspartate Amino Transferase 30 U/L (14-36); Blood Urea Nitrogen 20 mg/dL (7-17); Calcium 8.9 mg/dL (8.4-10.2); Carbon Dioxide 22 mmol/L (22-30); Chloride 102 mmol/L (98-107); Estimated CRCL calculation 37 ml/min; Estimated Glomerular Filt Rate 53; Glucose 116 mg/dL (65-110); Lipase 156 U/L (23-300); Magnesium 1.8 mg/dL (1.6-2.3); Potassium 4.9 mmol/L (3.4-5.0); Sodium 135 mmol/L (137-145)
[2022-07-27 11:11] LABS: Lactic Acid Reflex 0.7 mmol/L (0.7-2.0)
--- NOTE | 2022-07-27 11:17 | ED.DIZZY ---
HPI - Dizziness General Chief Complaint: Dizziness Stated Complaint: dizzy, afib monday Time Seen by Provider: 07/27/22 10:14 Source: patient, RN notes reviewed and old records reviewed Mode of arrival: ambulatory Limitations: other (poor historian) History of Present Illness HPI Narrative: This is an 82 year old female with history of chronic afib who presents for evaluation of dizziness. Patient states she started feeling dizziness on monday and it has been improving. She states she thinks she feels like this when she is in atrial fibrillation. Her reports cough and weakness for 2 days. Patient denies chest pain, fever, or shortness of breath. She is unsure nausea. She has intermittent back pain but denies any pain now. She thinks she may have a uti but denies dysuria or hematuria. Related Data Home Medications Medication Instructions Recorded Confirmed furosemide 20 mg tablet 20 mg DAILY 07/27/22 Allergies Allergy/AdvReac Type Severity Reaction Status Date / Time cefadroxil Allergy Unknown Itching Verified 07/27/22 10:08 Sulfa (Sulfonamide Allergy Unknown rash Verified 07/27/22 10:08 Antibiotics) Review of Systems Review of Systems: All systems reviewed & are unremarkable except as noted in HPI and below Constitutional: Constitutional: Denies chills, Denies fatigue, Denies fever(s) and Reports weakness ENT: Denies nasal congestion and Denies sore throat Cardiovascular: Cardiovascular: Denies chest pain and Denies radiating jaw, neck or arm pain Respiratory: Respiratory: Reports cough and Denies dyspnea Gastrointestinal: Gastrointestinal: Denies diarrhea, Denies nausea and Denies vomiting Genitourinary: Genitourinary: Denies dysuria and Denies flank pain [facility] Past Medical History Medical History Bilateral hip pain Chronic kidney disease, stage 3 unspecified Coronary artery disease Elevated lipids Essential hypertension Fracture of distal end of radius GERD (gastroesophageal reflux disease) Obesity Osteoarthritis, hip, bilateral Pain in the coccyx Sacral fracture Status post fall Thyroid disease Surgical History Surgical History H/O: hysterectomy Status post primary angioplasty with coronary stent Family History Family History Sibling Hypertension Family history of diabetes mellitus in first degree relative Family history of arthritis Patient's brother is in good health Mother Family history of pancreatic cancer Diabetes mellitus Family history of cardiovascular disease Family history of malignant neoplasm Father Asthma Other Family history of tuberculosis Social History Social History Social History: Smoking status: Never smoker Second hand tobacco smoke exposure: No Alcohol intake: never Substance use: never Substance use type: does not use Gender identity (if verbalized by the patient): Female Sexual Orientation (if Verbalized by the Patient): Straight or Heterosexual Exam Const: General: no acute distress and alert Nutritional Appearance: well nourished Orientation/consciousness: patient oriented x3 HENMT: Head: normal to inspection Ears: TM's normal bilaterally Neck: Neck: normal visual inspection Chest: Chest palpation & inspection: normal inspection of the chest Resp: Effort & Inspection: normal respiratory effort Auscultation: clear to auscultation bilaterally Cardio: Rate: regular rate Rhythm: abnormal rhythm GI: GI Palp: Yes Soft to palpation, Yes Tenderness to palpation present (GI) (LLQ), No Guarding due to palpation present (GI) and No Rigid due to palpation Auscultation: normal bowel sounds Back/Spine/Pelvis: Back: no CVA tenderness Skin: General skin exam: normal color Tank
[2022-07-27 11:21] LABS: NT Pro B Type Natriuretic Pept 2820 pg/mL (5-100)
[2022-07-27 11:27] LABS: Add Urine Microscopic? YES; Appearance Urine Cloudy (Clear); Bacteria Urine 4+ /hpf; Bilirubin Urine Negative (Negative); Blood Urine 1+ (Negative); Color Urine Yellow (Yellow); Glucose Urine UA Negative (Negative); Ketones Urine Negative (Negative); Leukocyte Esterase Ur 2+ LEU/UL (Negative); Mucus Urine Rare /lpf; Nitrate Urine Positive (Negative); Protein Urine Negative (Negative); RBC Urine 0-2 /hpf (0-2); Specific Grav Ur 1.013 (1.001-1.035); Squamous Epithelial Cell Urine Occasional /hpf (Few); Urobilinogen Urine Negative mg/dL (<2.0); WBC Urine 31-50 /hpf
[2022-07-27 11:43] LABS: Influenza A QL RT-PCR Negative (Negative); Influenza B QL RT-PCR Negative (Negative); SARS-CoV-2 RNA PCR Negative
== END 2022-07-27 13:51 | disposition home or self-care (01) ==
PROVIDERS: Emergency Provider General Practice; PCP Family Medicine
DX: N39.0 Urinary tract infection, site not specified (principal); I48.20 Chronic atrial fibrillation, unspecified; Z20.822 Contact with and (suspected) exposure to COVID-19; I12.9 Hypertensive chronic kidney disease with stage 1 through stage 4 chronic kidney disease, or unspecified chronic kidney disease; N18.30 Chronic kidney disease, stage 3 unspecified; I25.10 Atherosclerotic heart disease of native coronary artery without angina pectoris; K21.9 Gastro-esophageal reflux disease without esophagitis; M16.0 Bilateral primary osteoarthritis of hip; E07.9 Disorder of thyroid, unspecified; E66.9 Obesity, unspecified; Z68.30 Body mass index [BMI] 30.0-30.9, adult; K44.9 Diaphragmatic hernia without obstruction or gangrene; Z79.01 Long term (current) use of anticoagulants; R94.31 Abnormal electrocardiogram [ECG] [EKG]
CPT/HCPCS: 36415; 51701; 71046; 74177; 80053; 81001; 83605; 83690; 83735; 83880; 85025; 85610; 85730; 87077; 87086; 87186; 87502; 93005; 99284; C9803; Q9967; U0003; U0005

== ENCOUNTER 2022-09-13 16:14 | Emergency (ER) | payer MEDICARE, SELFPAY ==
--- NOTE | ~2022-09-13 | XR_ITS ---
EXAMINATION: XR chest 2V Exam Date/Time: 09/13/2022 17:40 ADVERTISEMENT COMPOSITOR HISTORY: cough Comparison: 07/27/2022. RESULT: Lines, tubes, and devices: None. Lungs and pleura: Ill-defined streaky bibasilar opacities. Cardiomediastinal silhouette: Stable. Other: No acute osseous or upper abdominal finding. IMPRESSION: Mild bibasilar atelectasis/consolidation. Reviewed, dictated and finalized at location K. RTISEMENT COMPOSITOR
[2022-09-13 16:30] VITALS: BP 131/84; PULSE 117; RESP 20; TEMP 37.2; O2SAT 99
[2022-09-13 17:21] LABS: Influenza A QL RT-PCR Negative (Negative); Influenza B QL RT-PCR Negative (Negative); SARS-CoV-2 RNA PCR Negative
--- NOTE | 2022-09-13 17:48 | ED.GENADULT ---
HPI - General Adult General Chief complaint: Upper Respiratory Infection Stated complaint: chills Time Seen by Provider: 09/13/22 17:29 History of Present Illness HPI narrative: 82-year-old female history of early stage dementia, A. fib, anxiety depression, CAD, CHF, hyperlipidemia and hypothyroidism presents to the emergency room for evaluation of feeling cold . Patient states around 1:00 this afternoon she was lying in bed talking on the phone managing her checkbook, when she felt a wave of cold to come over her. Patient states that she was unable to get warmed up. Patient was under the blankets, called out to her asking for an aspirin. She then proceeded to tell him she has come to the emergency room for further evaluation. Between patient's triage time and obtaining the history, patient states that she was able to successfully warm up. Denies headache, body aches, chest pain, shortness of breath. Related Data Home Medications Medication Instructions Recorded Confirmed furosemide 20 mg tablet 20 mg DAILY 07/27/22 07/29/22 Allergies Allergy/AdvReac Type Severity Reaction Status Date / Time cefadroxil Allergy Unknown Itching Verified 07/29/22 15:23 Sulfa (Sulfonamide Allergy Unknown rash Verified 07/29/22 15:23 Antibiotics) Review of Systems Review of Systems: CONSTITUTIONAL: Reports chills EYES: Denies visual changes, redness, or discharge. ENT: Denies rhinorrhea, congestion, sore throat, or otalgia. CARDIOVASCULAR: Denies chest pain, palpitations, or edema. RESPIRATORY: Denies cough or dyspnea. GASTROINTESTINAL: Denies abdominal pain, nausea, vomiting, or diarrhea. GENITOURINARY: Denies dysuria or hematuria. SKIN: Denies rash or itching. MUSCULOSKELETAL: Denies back pain, joint pain, or myalgia. NEUROLOGIC: Denies headache, numbness, dizziness, or weakness. PSYCHIATRIC: Denies anxiety or depression. [facility] Past Medical History Medical History Bilateral hip pain Chronic kidney disease, stage 3 unspecified Coronary artery disease Elevated lipids Essential hypertension Fracture of distal end of radius GERD (gastroesophageal reflux disease) Obesity Osteoarthritis, hip, bilateral Pain in the coccyx Sacral fracture Status post fall Thyroid disease Surgical History Surgical History H/O: hysterectomy Status post primary angioplasty with coronary stent Family History Family History Sibling Hypertension Family history of diabetes mellitus in first degree relative Family history of arthritis Patient's brother is in good health Mother Family history of pancreatic cancer Diabetes mellitus Family history of cardiovascular disease Family history of malignant neoplasm Father Asthma Other Family history of tuberculosis Social History Social History Social History: Smoking status: Never smoker Second hand tobacco smoke exposure: No Alcohol intake: never Substance use: never Substance use type: does not use Gender identity (if verbalized by the patient): Female Sexual Orientation (if Verbalized by the Patient): Straight or Heterosexual Exam Narrative: GENERAL: Well-appearing, well-nourished, no physical limitations, and in no acute distress. HEAD: Normocephalic, atraumatic. EYES: Conjunctivae normal, PERRLA and EOMI. CHEST: Clear to auscultation. No respiratory distress. No wheezes rales or rhonchi. No tenderness. HEART: Irregular rate and irregular rhythm no murmur heard. Normal peripheral pulses. ABDOMEN: Soft, nontender, nondistended, normal active bowel sounds. EXTREMITIES: Normal range of motion. No edema. No clubbing or cyanosis SKIN: Warm, dry, no rash. No noted wounds NEURO: No focal deficits. Alert and oriented x3. MAEW. CN's II-X
[2022-09-13 18:01] LABS: RSV RNA, RT-PCR Negative (Negative)
[2022-09-13 18:30] LABS: Basophils Absolute Auto 0.1 K/mm3 (0.0-0.1); Basophils Percent Auto 0.5 % (0.2-1.2); Eosinophils Percent Auto 0.2 % (0-4.4); Hematocrit 38.2 % (37.0-47.0); Hemoglobin 12.9 g/dL (12.0-15.0); Immature Granulocyte Absolute 0.04 K/mm3 (0.00-0.031); Immature Granulocyte Percent A 0.3 % (0-0.5); Lymphocytes Absolute Auto 0.39 K/mm3 (0.9-3.2); Lymphocytes Percent Auto 3.2 % (18.3-44.2); Mean Corpuscular HGB Conc 33.8 g/dl (32-36); Mean Corpuscular Hemoglobin 31.6 pg (26-34); Mean Corpuscular Volume 93.6 fl (80-100); Monocytes Absolute Auto 0.5 K/mm3 (0.1-0.6); Neutrophils Absolute Auto 11.2 K/mm3 (1.3-6.7); Neutrophils Percent Auto 91.8 % (45.5-73.1); Platelet Count Result 279 k/mm3 (150-375); Red Blood Count 4.08 M/mm3 (4.2-5.4); Red Cell Distribution Width 13.9 % (11.5-14.5); White Blood Count 12.2 K/mm3 (4.5-10.0)
[2022-09-13 18:52] LABS: Troponin I < 0.012 ng/mL (0.000-0.034)
== END 2022-09-13 19:28 | disposition home or self-care (01) ==
PROVIDERS: Emergency Medicine; Emergency Provider Nurse Practitioner Family; PCP Family Medicine
DX: R68.83 Chills (without fever) (principal); Z20.822 Contact with and (suspected) exposure to COVID-19; I12.9 Hypertensive chronic kidney disease with stage 1 through stage 4 chronic kidney disease, or unspecified chronic kidney disease; N18.30 Chronic kidney disease, stage 3 unspecified; K21.9 Gastro-esophageal reflux disease without esophagitis; M19.90 Unspecified osteoarthritis, unspecified site; I25.10 Atherosclerotic heart disease of native coronary artery without angina pectoris
CPT/HCPCS: 36415; 71046; 84443; 84484; 85025; 87634; 87636; 99284

== ENCOUNTER 2022-09-21 15:51 | Outpatient (CLI) | payer MEDICARE, SELFPAY ==
--- NOTE | ~2022-09-21 | CT_ITS ---
EXAMINATION: CT diagnostic chest wo con DATE: 09/21/2022 16:09 INDICATION: Cough, shortness of breath. Abnormal chest radiograph. TECHNIQUE: Computed tomography (CT) of the chest was performed without intravenous contrast. Automate d exposure control and iterative reconstruction technique were employed. Exam dose: 138.34 mGy-cm to selena exam DLP. COMPARISON: 09/13/2022 2 view chest FINDINGS: Normal heart size. Prominent coronary artery calcifications. There is aortic calcification. Aortic diameter is within upper normal range. No hilar or mediastinal mass lesion or lymphadenopathy. No pericardial or pleural effusion. Small sliding hiatal hernia. Mild bilateral apical scarring. There is a focal groundglass infiltrate in the posterolateral left upper lobe, measuring up to approx imately 1.9 cm maximal vertical, 1.5 cm transverse and millimeters AP dimension. This is not evident on 09/13/2022 2 view chest. The lung santos are otherwise clear. Prominent degenerative disc disease in the lower cervical spine. There is degenerative spurring of th e thoracic spine. No suspicious osteolytic or osteoblastic lesions are noted. IMPRESSION: Focal left upper lobe probable pulmonary infectious or inflammatory infiltrate; neoplas m is less likely. Consider short-term CT thorax follow-up to ensure complete clearing, in order to ex clude neoplasm Reviewed, dictated and finalized at Location A. Reviewed, dictated and finalized at location B. RBOAT OPERATOR IMPRESSION: Focal left upper lobe probable pulmonary infectious or inflammator y infiltrate; neoplasm is less likely. Consider short-term CT thorax follow-up to ensure complete clearing, in order to exclude neoplasm
== END 2022-09-21 15:52 | disposition home or self-care (01) ==
LOC: ANHIMG 15:52
PROVIDERS: PCP Family Medicine; Visit Provider Physician Assistant
DX: R06.02 Shortness of breath (principal); R91.8 Other nonspecific abnormal finding of lung field
CPT/HCPCS: 71250

== ENCOUNTER 2022-10-19 16:04 | Outpatient (CLI) | payer MEDICARE, SELFPAY ==
--- NOTE | ~2022-10-19 | CT_ITS ---
CT Scan of the Chest without Contrast: Clinical Indication: Abnormal chest CT Technique: Contiguous sections were acquired throughout the chest without intravenous contrast. Dose reduction technique was used on this scan by utilizing automated exposure control and iterative recon struction technique. The dose-length product (DLP) was 146.60 mGy-cm. COMPARISON: 09/21/2022 Findings: There is no evidence of any significant mediastinal, hilar or axillary lymphadenopathy. Coronary yassine ry calcifications and/or possibly stent present. No aortic aneurysm. There is no evidence of pleural or pericardial effusion. Stable focal groundglass lesion in the peripheral left upper lobe measuring 1.9 cm in maximum diamete r (axial image 40). Images through the upper abdomen reveal no abnormalities. Impression: Stable 1.9 cm groundglass focal opacity in the left upper lobe. Persistence of this lesion raises the possibility of a neoplastic lesion such as bronchoalveolar cell carcinoma. Consider continued follow -up versus tissue sampling. Reviewed, dictated and finalized at [facility]. IO MUSICIAN Impression: Stable 1.9 cm groundglass focal opacity in the left upper lobe. Persistence of this lesion raises the possibility of a neoplastic lesion such as bronchoalveol ar cell carcinoma. Consider continued follow-up versus tissue sampling.
== END 2022-10-19 16:05 | disposition home or self-care (01) ==
PROVIDERS: PCP Family Medicine; Visit Provider Physician Assistant
DX: R05.3 Chronic cough (principal); R06.02 Shortness of breath; R93.89 Abnormal findings on diagnostic imaging of other specified body structures
CPT/HCPCS: 71250

== ENCOUNTER 2022-10-26 19:28 | Emergency (ER) | payer MEDICARE, SELFPAY ==
--- NOTE | ~2022-10-26 | XR_ITS ---
EXAM: XR knee LT 3V DATE: 10/26/2022 21:25 HISTORY: Knee pain after fall. Patient unable to bear weight . COMPARISON: None available. FINDINGS: Normal mineralization. No fracture or dislocation. No lytic or blastic lesion. Tricompartm ental left knee osteoarthritis, severe in the medial compartment. No erosion or periosteal change. So ft tissues within normal limits. IMPRESSION: No acute osseous finding in the left knee. Reviewed, dictated and finalized at location K. INIST BRAKE
--- NOTE | ~2022-10-26 | XR_ITS ---
EXAM: XR ankle LT min 3V, XR tibia fibula LT 2V DATE: 10/26/2022 21:24 (accession [id number]), 10/26/2022 21:25 (accession [id number]) HISTORY: Pain to anterior lower left leg and left ankle after fall today . COMPARISON: None available. FINDINGS: Normal mineralization. No fracture or dislocation. No lytic or blastic lesion. Degenerativ e left knee, tibiotalar, and midfoot change. Achilles and plantar enthesopathy. No erosion or periost eal change. Soft tissues within normal limits. IMPRESSION: No acute osseous finding in the left tibia, fibula, or ankle. Reviewed, dictated and finalized at location K. R PRESSER IMPRESSION: No acute osseous finding in the left tibia, fibula, or ankle.
--- NOTE | ~2022-10-26 | XR_ITS ---
EXAM: XR hip LT 2V w AP pelvis DATE: 10/26/2022 21:25 HISTORY: Left hip pain after fall today . COMPARISON: 03/05/2020. FINDINGS: Decreased mineralization. No fracture or dislocation. No lytic or blastic lesion. Degenera tive change in the lower lumbar spine bilateral hips and symphysis pubis. No erosion or periosteal ch wayne. Soft tissues within normal limits. IMPRESSION: No acute osseous finding in the pelvis or left hip. Reviewed, dictated and finalized at location K. TICAL NURSING INSTRUCTOR
[2022-10-26 19:29] VITALS: BP 118/85; PULSE 116; RESP 20; TEMP 36.2; O2SAT 97
[2022-10-26] MEDS: ACETAMINOPHEN 500 MG TABLET 1000 MG PO (21:18)
[2022-10-26 21:22] VITALS: BP 130/101; PULSE 91; RESP 18; O2SAT 99
--- NOTE | 2022-10-26 22:39 | ED.FALL ---
HPI - Fall General Chief Complaint: Fall Stated Complaint: fall, L leg pain Time Seen by Provider: 10/26/22 20:46 Source: patient and family Mode of arrival: wheelchair Limitations: no limitations History of Present Illness complaint: fall Onset (ago): hour(s) (8) Fall from: down stairs (#) Fall witnessed: yes, by family Place fall occurred: home Loss of consciousness: none Prolonged down time: no Symptoms prior to fall: none Context: tripped/slipped Location of injury - extremities: Left: knee, lower leg and ankle Severity: severe Quality: aching Related Data Allergies Allergy/AdvReac Type Severity Reaction Status Date / Time cefadroxil Allergy Unknown Itching Verified 10/26/22 21:18 Sulfa (Sulfonamide Allergy Unknown rash Verified 10/26/22 21:18 Antibiotics) Review of Systems Review of Systems: CONST: No fever. HEENT: No head trauma or neck trauma C/V: No chest pain RESP: No cough GI: No abdominal pain : No dysuria. M/S: Pain from left knee down to ankle SKIN: No rash. NEURO: [No headache or focal numbness or weakness] PSYCH: [No depression] PMFSH Past Medical History Medical History Bilateral hip pain Chronic kidney disease, stage 3 unspecified Coronary artery disease Elevated lipids Essential hypertension Fracture of distal end of radius GERD (gastroesophageal reflux disease) Obesity Osteoarthritis, hip, bilateral Pain in the coccyx Sacral fracture Status post fall Thyroid disease Surgical History Surgical History H/O: hysterectomy Status post primary angioplasty with coronary stent Family History Family History Sibling Hypertension Family history of diabetes mellitus in first degree relative Family history of arthritis Patient's brother is in good health Mother Family history of pancreatic cancer Diabetes mellitus Family history of cardiovascular disease Family history of malignant neoplasm Father Asthma Other Family history of tuberculosis Social History Social History Social History: Smoking status: Never smoker Second hand tobacco smoke exposure: No Alcohol intake: never Substance use: never Substance use type: does not use Gender identity (if verbalized by the patient): Female Sexual Orientation (if Verbalized by the Patient): Straight or Heterosexual Exam Narrative: EXAMINATION OF ORGAN SYSTEMS/BODY AREAS: Constitutional: Vital signs per nursing GENERAL: Resting comfortably in bed but winces every time she is moved HEAD: Normal with no signs of head trauma. EYES: EOMI, conjunctiva normal ENT: Hearing grossly intact LUNGS: Nonlabored breathing. HEART: [Regular rate and rhythm] ABD: [Soft], [nontender to palpation] EXT: Normal range of motion, there is tenderness to palpation at the ankle and knee; DP pulses intact SKIN: [No rashes or lesions.] NEURO: [Alert and oriented x 3. No gross focal sensory or strength deficits.] PSYCH: Normal affect Course Vital Signs Vital signs: Vital Signs Temperature 97.2 F L 10/26/22 19:29 Pulse Rate 116 H 10/26/22 19:29 Respiratory Rate 20 10/26/22 19:29 Blood Pressure 118/85 10/26/22 19:29 Pulse Oximetry 97 10/26/22 19:29 Oxygen Delivery Room Air 10/26/22 19:29 Temperature 97.2 F L 10/26/22 19:29 Pulse Rate 91 10/26/22 21:22 Respiratory Rate 18 10/26/22 21:22 Blood Pressure 130/101 H 10/26/22 21:22 Pulse Oximetry 99 10/26/22 21:22 Oxygen Delivery Room Air 10/26/22 19:29 MDM - Fall MDM Narrative Medical decision making narrative: 82-year-old female who presents after mechanical fall, denies any head trauma or loss of consciousness, she is able to ambulate with a knee brace but with pain. Vital signs stable, she is neurovascularly intact, I will o
== END 2022-10-26 23:04 | disposition home or self-care (01) ==
PROVIDERS: Emergency Provider Emergency Medicine; PCP Family Medicine
DX: S89.92XA Unspecified injury of left lower leg, initial encounter (principal); S99.912A Unspecified injury of left ankle, initial encounter; I12.9 Hypertensive chronic kidney disease with stage 1 through stage 4 chronic kidney disease, or unspecified chronic kidney disease; N18.30 Chronic kidney disease, stage 3 unspecified; I25.10 Atherosclerotic heart disease of native coronary artery without angina pectoris; K21.9 Gastro-esophageal reflux disease without esophagitis; E66.9 Obesity, unspecified; Z68.29 Body mass index [BMI] 29.0-29.9, adult; M16.0 Bilateral primary osteoarthritis of hip; E07.9 Disorder of thyroid, unspecified; Z90.710 Acquired absence of both cervix and uterus; Z95.5 Presence of coronary angioplasty implant and graft; W10.9XXA Fall (on) (from) unspecified stairs and steps, initial encounter
CPT/HCPCS: 73502; 73562; 73590; 73610; 99284; A9270

== ENCOUNTER 2022-11-01 14:08 | Outpatient (CLI) | payer MEDICARE, SELFPAY ==
--- NOTE | ~2022-11-01 | CT_ITS ---
EXAMINATION: CT brain wo con DATE: 11/01/2022 15:10 INDICATION: Altered mental status. TECHNIQUE: Computed tomography (CT) of the head was performed without intravenous contrast. The mA wa s adjusted according to patient size. Iterative reconstruction technique was employed. The dose-lengt h product was 605.33 mGy-cm. COMPARISON: Head CT 05/26/2017, 07/08/2010 FINDINGS: There are old infarcts in the temporal occipital regions, right worse than left. There are scattered areas of low attenuation in the cerebral white matter. There is no intracranial hemorrhage, acute infarction, or abnormal intracranial mass lesion. The ventricles are normal in size. There are likely changes of ocular lens replacement surgeries. There is mild mucosal thickening in the paranas al sinuses. There are likely changes of ocular lens replacement surgeries. The mastoid air cells are normal. IMPRESSION: 1. 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 2. Worsened moderate nonspecific cerebral white matter disease, which likely represents chronic small vessel ischemic disease. Reviewed, dictated and finalized at location A. O TECHNICIAN IMPRESSION: 1. 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 2. Worsened moderate nonspecific cerebral white matter disease, which likely re presents chronic small vessel ischemic disease.
--- NOTE | ~2022-11-01 | XR_ITS ---
EXAMINATION: XR chest 2V DATE: 11/01/2022 14:47 INDICATION: Cough TECHNIQUE: frontal and lateral views of the chest were obtained. COMPARISON: Chest radiograph dated 09/13/22 FINDINGS: The lungs are clear with no focal airspace opacities, pulmonary edema, pleural effusion or pneumothor ax. The cardiomediastinal silhouette is normal. Mild thoracic spondylosis. IMPRESSION: 1. No acute cardiopulmonary disease. Reviewed, dictated and finalized at location A. ND AND BINDER CONTROLLER
[2022-11-01 15:52] LABS: Basophils Percent Auto 0.8 % (0.2-1.2); Eosinophils Percent Auto 0.6 % (0-4.4); Hematocrit 40.3 % (37.0-47.0); Hemoglobin 13.2 g/dL (12.0-15.0); Immature Granulocyte Absolute 0.03 K/mm3 (0.00-0.031); Immature Granulocyte Percent A 0.6 % (0-0.5); Lymphocytes Absolute Auto 1.47 K/mm3 (0.9-3.2); Lymphocytes Percent Auto 30.4 % (18.3-44.2); Mean Corpuscular HGB Conc 32.8 g/dl (32-36); Mean Corpuscular Hemoglobin 32.3 pg (26-34); Mean Corpuscular Volume 98.5 fl (80-100); Mean Platelet Volume 9.2 fl (7.4-10.4); Monocytes Absolute Auto 0.8 K/mm3 (0.1-0.6); Monocytes Percent Auto 15.5 % (2.6-8.5); Neutrophils Absolute Auto 2.5 K/mm3 (1.3-6.7); Neutrophils Percent Auto 52.1 % (45.5-73.1); Platelet Count Result 286 k/mm3 (150-375); Red Blood Count 4.09 M/mm3 (4.2-5.4); Red Cell Distribution Width 14.6 % (11.5-14.5); White Blood Count 4.8 K/mm3 (4.5-10.0)
[2022-11-01 15:57] LABS: Appearance Urine Clear (Clear); Bilirubin Urine Negative (Negative); Blood Urine 1+ (Negative); Color Urine Yellow (Yellow); Glucose Urine UA Negative (Negative); Ketones Urine Negative (Negative); Leukocyte Esterase Ur 1+ LEU/UL (Negative); Nitrate Urine Negative (Negative); Protein Urine Negative (Negative); Urobilinogen Urine 0.2 mg/dL (<2.0); pH Urine 5.5 (5.0-9.0)
[2022-11-01 16:02] LABS: Alanine Aminotransferase 13 U/L (6-35); Albumin Level 3.7 g/dL (3.5-5.1); Alkaline Phosphatase 99 U/L (38-126); Anion Gap 6 mmol/L (8-16); Aspartate Amino Transferase 29 U/L (14-36); Bilirubin,Total 0.5 mg/dL (0.2-1.3); Blood Urea Nitrogen 15 mg/dL (7-17); Calcium 8.4 mg/dL (8.4-10.2); Carbon Dioxide 25 mmol/L (22-30); Chloride 101 mmol/L (98-107); Estimated Glomerular Filt Rate 60; Glucose 92 mg/dL (65-110); Potassium 4.1 mmol/L (3.4-5.0); Sodium 132 mmol/L (137-145)
[2022-11-01 16:09] LABS: Mucus Urine Rare /lpf; Squamous Epithelial Cell Urine Rare /hpf (Few)
[2022-11-01 16:10] LABS: Add Urine Microscopic? YES
== END 2022-11-01 14:09 | disposition home or self-care (01) ==
PROVIDERS: PCP Family Medicine; Visit Provider Physician Assistant
DX: R41.82 Altered mental status, unspecified (principal); Z86.73 Personal history of transient ischemic attack (TIA), and cerebral infarction without residual deficits; R05.9 Cough, unspecified
CPT/HCPCS: 36415; 70450; 71046; 80053; 81001; 85025

== ENCOUNTER → 2023-02-02 09:40 | Outpatient (CLI) | payer MEDICARE, SELFPAY ==
--- NOTE | ~2023-02-02 | MM_ITS ---
EXAMINATION: MM screening billy BI w tomas HISTORY: Screening mammogram TECHNIQUE: Craniocaudal and mediolateral oblique 3-D tomosynthesis images were obtained and synthetic 2-D images were generated. CAD analysis was submitted and interpreted. COMPARISON: 12/08/2021, 11/02/2018, 10/31/2017, 10/13/2017 BREAST PARENCHYMAL COMPOSITION: The breasts are heterogeneously dense, which may obscure small masses . FINDINGS: No suspicious mass, calcification, or architectural distortion are identified in either roxana ast to suggest malignancy. There has been no suspicious interval change. IMPRESSION: 1. No mammographic evidence of malignancy. 2. Recommend routine screening mammography while the patient remains in good health. BI-RADS Category 1: Negative Reviewed, dictated and finalized at location A. IMPRESSION: 1. No mammographic evidence of malignancy. 2. Recommend routine screening mammography while the patient remains in good he alth. BI-RADS Category 1: Negative
== END ==
PROVIDERS: PCP Family Medicine; Visit Provider Physician Assistant
DX: Z12.31 Encounter for screening mammogram for malignant neoplasm of breast (principal)
CPT/HCPCS: 77063; 77067

== ENCOUNTER 2023-02-02 11:53 | Outpatient (CLI) | payer MEDICARE, SELFPAY ==
--- NOTE | ~2023-02-02 | CT_ITS ---
CT Scan of the Chest without Contrast: Clinical Indication: Right upper lobe infiltrate Technique: Contiguous sections were acquired throughout the chest without intravenous contrast. Dose reduction technique was used on this scan by utilizing automated exposure control and iterative recon struction technique. The dose-length product (DLP) was 166.01 mGy-cm. COMPARISON: 10/19/2022 and 09/21/2022 Findings: There is no evidence of any significant mediastinal, hilar or axillary lymphadenopathy. Coronary yassine ry calcifications are present. There is no evidence of pleural or pericardial effusion. 2.0 cm semisolid, probably groundglass opacities present at the left upper lobe (axial image 41), ess entially unchanged. No other pulmonary abnormality seen. Images through the upper abdomen reveal no abnormalities. Impression: Stable 2 cm semisolid lesion in the left upper lobe. Given persistence, this could reflect a low-grad e/indolent neoplasm such as bronchoalveolar cell carcinoma. Continued follow-up advised at a minimum. Consider tissue sampling as indicated. Reviewed, dictated and finalized at location . Impression: Stable 2 cm semisolid lesion in the left upper lobe. Given persistence, this co uld reflect a low-grade/indolent neoplasm such as bronchoalveolar cell carcinom a. Continued follow-up advised at a minimum. Consider tissue sampling as indica caleb.
== END 2023-02-02 11:54 | disposition home or self-care (01) ==
PROVIDERS: PCP Family Medicine; Visit Provider Internal Medicine Critical Care Medicine
DX: R91.8 Other nonspecific abnormal finding of lung field (principal)
CPT/HCPCS: 71250

== ENCOUNTER 2023-03-14 07:05 | Outpatient (CLI) | payer MEDICARE, SELFPAY ==
--- NOTE | ~2023-03-14 | PE_ITS ---
EXAMINATION: PET skull to mid thigh DATE: 03/14/2023 10:10 INDICATION: Pulmonary nodule. TECHNIQUE: Blood glucose level was 92 mg/dL. 8.966 mCi of 18-fluorodeoxyglucose (18-FDG) was administ ered i.v. Low dose computed tomography (CT) images were acquired from the base of the brain to the pr oximal thighs for attenuation correction and anatomic localization. Automated exposure control was em ployed. Dose-length product (DLP) was 543 mGy-cm. Positron emission tomography (PET) images were acqu ired in the same distribution. COMPARISON: Chest CT 02/02/2023, 09/21/2022 FINDINGS: Head/neck: There are no pathologically enlarged lymph nodes. Chest: There is mild scarring at the lung apices. There is mild atelectasis bilaterally. There is a 1 4 mm part solid nodule in left lung upper lobe with maximum SUV of 4.3. No pleural effusion. There is left atrial enlargement of the heart. There are coronary artery calcifications. No pericardial effus ion. Abdomen/pelvis/proximal thighs: The liver, spleen, gallbladder, pancreas, adrenal glands, and right k idney are normal. There is cortical thinning of left kidney. Aortic atherosclerosis is noted. There i s diverticulosis of the colon without evidence of diverticulitis. There are no dilated loops of bowel . The appendix is not visualized. There are no pathologically enlarged lymph nodes. There is no free intraperitoneal fluid. There is no osseous malignancy. IMPRESSION: 1. 14 mm part-solid nodule in left lung upper lobe with increased activity, consistent with primary b ronchogenic carcinoma. CT-guided biopsy is recommended. Reviewed, dictated and finalized at location L. IMPRESSION: 1. 14 mm part-solid nodule in left lung upper lobe with increased activity, con sistent with primary bronchogenic carcinoma. CT-guided biopsy is recommended.
[2023-03-14 08:03] LABS: Glucose Point of Care 92 mg/dl (65-105)
== END 2023-03-14 07:06 | disposition home or self-care (01) ==
PROVIDERS: PCP Family Medicine; Visit Provider Internal Medicine Critical Care Medicine
DX: R91.1 Solitary pulmonary nodule (principal)
CPT/HCPCS: 78815; A9552

== ENCOUNTER 2023-03-24 08:50 | Outpatient (CLI) | payer MEDICARE, SELFPAY ==
[2023-03-24] VITALS (8 sets, daily range): BP systolic 108–123; BP diastolic 61–89; PULSE 44–97; RESP 16–20; TEMP 36.3; O2SAT 94–100
--- NOTE | ~2023-03-24 | XR_ITS ---
Portable chest x-ray Comparison: 03/24/2023 11:52 AM Clinical History: Status post biopsy Findings: There is vague hazy opacity in the left upper lobe. Right lung clear. Possible tiny left a pical pneumothorax. Cardiomediastinal silhouette is stable. Bones and soft tissues are unremarkable. Impression: Vague hazy opacity left upper lobe. Possible tiny left apical pneumothorax. Reviewed, dictated and finalized at location . Impression: Vague hazy opacity left upper lobe. Possible tiny left apical pneumothorax.
--- NOTE | ~2023-03-24 | XR_ITS ---
EXAMINATION: XR chest 1V DATE: 03/24/2023 11:53 INDICATION: Left lung nodule status post percutaneous biopsy. TECHNIQUE: A single frontal view of the chest was obtained. COMPARISON: Chest 2 views 11/01/2022 FINDINGS: There are airspace opacities in left upper lobe. No pleural effusion or pneumothorax. The h eart size is normal. IMPRESSION: 1. Airspace opacities in left upper lobe, consistent with postbiopsy hemorrhage. Reviewed, dictated and finalized at location A. IMPRESSION: 1. Airspace opacities in left upper lobe, consistent with postbiopsy hemorrhage .
--- NOTE | ~2023-03-24 | XR_ITS ---
EXAMINATION: XR chest 1V portable INDICATION: Status post image guided biopsy TECHNIQUE: Portable AP chest at 1441 hours COMPARISON: 1253 hours FINDINGS: No pleural effusion or pneumothorax. There is stable nodular opacity of the left upper lobe . The cardiomediastinal silhouette is normal. IMPRESSION: 1. No pneumothorax identified. 2. Stable nodular opacity of the left upper lobe. Reviewed, dictated and finalized at location F.
--- NOTE | ~2023-03-24 | CT_ITS ---
EXAMINATION: CT biopsy lung w/imaging DATE: 03/24/2023 11:55 INDICATION: Malignant neoplasm of upper lobe of left lung TECHNIQUE: The procedure including the risks, benefits, and alternatives and possibility of chest tub e placement were discussed with the patient. Risks discussed included infection, hemorrhage, approxim ately 1/3 risk of pneumothorax, approximately 1/10 risk of pneumothorax severe enough to warrant ches t tube placement, and rarely . The patient understood the risks and agreed to proceed. The patie nt was placed supine. The skin overlying the left chest was prepped and draped in sterile fashion. Anesthetic was administered with 1% lidocaine subcutaneously. A 19 gauge outer needle was advanced u nder CT guidance to the lesion of interest. A 20 gauge core biopsy needle was then used to obtain 3 c ore biopsy specimens. The needle was removed and the entry site was cleaned and dressed. The mA was a djusted according to patient size. Iterative reconstruction technique was employed. The dose-length p roduct was 323.25 mGy-cm. There were no immediate complications. FINDINGS: CT images demonstrate the outer needle tip adjacent to a 16 mm nodule left lung upper lobe. IMPRESSION: 1. CT-guided core needle biopsy of a 16 mm nodule in left lung upper lobe. Reviewed, dictated and finalized at location A.
[2023-03-24 10:00] LABS: Mean Platelet Volume 9.3 fl (7.4-10.4); Platelet Count Result 315 k/mm3 (150-375)
--- NOTE | 2023-03-24 15:37 | SUR.PHASEII ---
1505 dr willson callled and with last chest xray, patient is good for discharge, vital signs stable on room air, no pain
== END 2023-03-24 15:20 | disposition home or self-care (01) ==
PROVIDERS: Radiology Diagnostic Radiology; PCP Family Medicine; Referring Provider Internal Medicine Critical Care Medicine; Visit Provider Internal Medicine Critical Care Medicine
PROC: BB24ZZZ Computerized Tomography (CT Scan) of Bilateral Lungs (ICD-10-PCS; CPT 32408; principal; 2023-03-24 11:00)
DX: C34.11 Malignant neoplasm of upper lobe, right bronchus or lung (principal)
CPT/HCPCS: 32408; 36415; 71045; 85049; 85610; 88305

== ENCOUNTER 2023-06-27 08:11 | Emergency (ER) | payer MEDICARE, SELFPAY ==
--- NOTE | ~2023-06-27 | XR_ITS ---
[XR ribs LT 2V w CXR 2V ] INDICATION: Left lateral rib pain after fall TECHNIQUE: Frontal projection of the upper left ribs, frontal projection of the lower left ribs, obli que projection of all the left ribs, frontal inspiratory chest x-ray for interpretation. FINDINGS: There are no soft tissue abnormality seen. The lungs are clear. Small left pleural effus ion. There are minimally displaced left ninth and 10th rib fractures anterolaterally.. IMPRESSION: 1: Minimally displaced left ninth and 10th rib fractures anterior laterally. Reviewed, dictated and finalized at location L.
[2023-06-27 08:16] VITALS: BP 111/75; PULSE 96; RESP 17; TEMP 36.5; O2SAT 99
[2023-06-27] MEDS: HYDROcodone/acetaminophen (*CRX) 5-325 MG TABLET 1 TAB PO (09:41)
--- NOTE | 2023-06-27 10:18 | ED.FALL ---
HPI - Fall General Chief Complaint: Fall Stated Complaint: Fall Time Seen by Provider: 06/27/23 09:17 Source: patient and family Mode of arrival: wheelchair Limitations: no limitations History of Present Illness HPI Narrative: This is an 82-year-old female that presents to the emergency department after a fall today with left-sided rib pain. Reports she did not put her shoes on when she got up. This caused her to fall. Reports hitting the left side of her chest on the ground. Reports pain in the left side of her ribs. It hurts when she takes a deep breath. She did not hit her head or lose consciousness. She denies any other focal areas of pain. Denies shortness of breath. Related Data Allergies Allergy/AdvReac Type Severity Reaction Status Date / Time cefadroxil Allergy Unknown Itching Verified 06/27/23 08:20 Sulfa (Sulfonamide Allergy Unknown rash Verified 06/27/23 08:20 Antibiotics) Review of Systems Review of Systems: CONSTITUTIONAL: Denies fever CARDIOVASCULAR: Reports chest/rib pain RESPIRATORY: Denies dyspnea. GASTROINTESTINAL: Denies vomiting MUSCULOSKELETAL: Denies back pain, joint pain, or myalgia. All systems reviewed & are unremarkable except as noted in HPI and below PMFSH Past Medical History Medical History Bilateral hip pain Chronic kidney disease, stage 3 unspecified Coronary artery disease Elevated lipids Essential hypertension Fracture of distal end of radius GERD (gastroesophageal reflux disease) Lung cancer Obesity Osteoarthritis, hip, bilateral Pain in the coccyx Sacral fracture Status post fall Thyroid disease Surgical History Surgical History H/O: hysterectomy Status post primary angioplasty with coronary stent Family History Family History Sibling Hypertension Family history of diabetes mellitus in first degree relative Family history of arthritis Patient's brother is in good health Mother Family history of pancreatic cancer Diabetes mellitus Family history of cardiovascular disease Family history of malignant neoplasm Father Asthma Other Family history of tuberculosis Social History Social History Social History: Smoking status: Never smoker Second hand tobacco smoke exposure: No Alcohol intake: never Substance use: never Substance use type: does not use Living arrangements: with family Occupation/Education: retired Gender identity (if verbalized by the patient): Female Sexual Orientation (if Verbalized by the Patient): Straight or Heterosexual Exam Narrative: GENERAL: Well-appearing, well-nourished, and in no acute distress. HEAD: Normocephalic, atraumatic. EYES: PERRLA and EOMI. ENT: Nares clear, no rhinorrhea or epistaxis. Mucous membranes moist. Oropharynx without tonsillar hypertrophy exudate or other lesions. Bilateral TMs pearly em non-bulging NECK: Supple. No adenopathy or masses. CHEST: Clear to auscultation. No respiratory distress. No wheezes rales or rhonchi. Tender to palpation of the left lower anterior/lateral chest wall HEART: Regular rate and rhythm. No murmur heard. Normal peripheral pulses. ABDOMEN: Soft, nontender, nondistended, normal active bowel sounds. EXTREMITIES: Normal range of motion. No edema or obvious deformity. SKIN: Warm, dry, no rash. NEURO: No focal deficits. Alert and oriented x3. Cranial nerves II through XII grossly intact PSYCH: Normal mood and affect Course Course Emergency Course: Patient and family updated on work-up and agree with plan of care Vital Signs Vital signs: Vital Signs Temperature 97.7 F 06/27/23 08:16 Pulse Rate 96 06/27/23 08:16 Respiratory Rate 17 06/27/23 08:16 Blood Pressure 111/75 06/27/23 08:16 Pulse Oximetry
== END 2023-06-27 10:42 | disposition home or self-care (01) ==
PROVIDERS: Emergency Provider Physician Assistant; PCP Family Medicine
DX: S22.42XA Multiple fractures of ribs, left side, initial encounter for closed fracture (principal); C34.90 Malignant neoplasm of unspecified part of unspecified bronchus or lung; I25.10 Atherosclerotic heart disease of native coronary artery without angina pectoris; I12.9 Hypertensive chronic kidney disease with stage 1 through stage 4 chronic kidney disease, or unspecified chronic kidney disease; N18.30 Chronic kidney disease, stage 3 unspecified; I48.91 Unspecified atrial fibrillation; K21.9 Gastro-esophageal reflux disease without esophagitis; E07.9 Disorder of thyroid, unspecified; E66.9 Obesity, unspecified; Z68.26 Body mass index [BMI] 26.0-26.9, adult; M16.0 Bilateral primary osteoarthritis of hip; Z95.5 Presence of coronary angioplasty implant and graft; Z90.710 Acquired absence of both cervix and uterus; Z79.01 Long term (current) use of anticoagulants; W18.39XA Other fall on same level, initial encounter
CPT/HCPCS: 71046; 71100; 99283; A9270

== ENCOUNTER 2023-10-02 11:24 | Outpatient (CLI) | payer MEDICARE, SELFPAY ==
--- NOTE | ~2023-10-02 | XR_ITS ---
EXAMINATION: XR ribs BI 3V w CXR 2V INDICATION: Pleurodynia TECHNIQUE: Frontal and lateral views of the chest and 3 views of the bilateral ribs were obtained. COMPARISON: 06/27/2023 FINDINGS: There are airspace opacities of the left upper lobe. No pleural effusion or pneumothorax. T he cardiomediastinal silhouette is stable. There is moderate thoracic spondylosis. There are healed a nterolateral fractures of the left sixth through ninth ribs. IMPRESSION: 1. Left upper lobe airspace opacities, consistent with pneumonia. 2. Healed anterolateral left rib fractures. Reviewed, dictated and finalized at location B. AGE COLLECTOR SUPERVISOR
== END 2023-10-02 11:25 | disposition home or self-care (01) ==
PROVIDERS: PCP Family Medicine; Visit Provider Physician Assistant Medical
DX: R07.81 Pleurodynia (principal); R07.89 Other chest pain; R91.8 Other nonspecific abnormal finding of lung field
CPT/HCPCS: 71046; 71110

== ENCOUNTER 2024-03-03 23:00 | Inpatient (IN) | payer MEDICARE, SELFPAY ==
--- NOTE | ~2024-03-03 | CT_ITS ---
Noncontrast CT scan of the cervical spine Technique: Multiple contiguous axial [address] images of the cervical spine were obtained and rec onstructed in 2D sagittal and coronal planes on the acquisition scanner. Dose reduction technique was used on this scan by utilizing automated exposure control, adjustment of the mA and/or kV according to patient size. The dose-length product (DLP) was 199.57 mGy-cm. Clinical History: Pain Findings: There is an acute, nondisplaced fracture the anterior right base of the C2 vertebral body, not involving the odontoid process base.. There are mild degenerative disc changes throughout the cer vical spine. There are moderate facet joint degenerative changes throughout the cervical spine. There is minimal right neural foraminal narrowing at C3-C4. There is minimal bilateral neural foraminal na rrowing at C4-C5. There is bilateral neural foraminal narrowing at C5-C6 and C6-C7. No prevertebral s oft tissue swelling. There is small left pleural effusion with left upper lobe consolidation. Impression: Acute nondisplaced fracture of the right side of the C2 vertebral body, as detailed above. Degenerative change, as above. Small left pleural effusion with left upper lobe consolidation, which could reflect atelectasis/scarr ing or pneumonia, less likely neoplasm given the visualized morphology. Reviewed, dictated and finalized at location . Impression: Acute nondisplaced fracture of the right side of the C2 vertebral body, as deta iled above. Degenerative change, as above. Small left pleural effusion with left upper lobe consolidation, which could ref lect atelectasis/scarring or pneumonia, less likely neoplasm given the visualiz ed morphology.
--- NOTE | ~2024-03-03 | CT_ITS ---
CT head without contrast Indication: Status post fall COMPARISON: 11/01/2022 Technique: Serial scans were obtained through the brain without the administration of contrast. Dose reduction technique was used on this scan by utilizing automated exposure control and iterative recon struction technique. The dose-length product (DLP) was 605.33 mGy-cm. Findings: There is no evidence of intracranial hemorrhage, mass lesion, or acute infarct. 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 The ventricles and subarachnoid spaces are dilated, consistent with mild atrophy. Low attenuation regions are seen within the periventricular white matter bilaterally, likely representing changes from chronic microv ascular ischemic disease. There is no evidence of edema, mass effect or midline shift. The visualiz ed paranasal sinuses and mastoid air cells are clear. Impression: No intracranial hemorrhage, mass, or acute infarct. Stable chronic encephalomalacia in the bilateral occipital lobes, right more extensive than left. Atrophy and chronic white matter changes, as above. Reviewed, dictated and finalized at [facility]. Impression: No intracranial hemorrhage, mass, or acute infarct. Stable chronic encephalomalacia in the bilateral occipital lobes, right more ex tensive than left. Atrophy and chronic white matter changes, as above.
--- NOTE | ~2024-03-03 | CT_ITS ---
Clinical Indication: Syncope, elevated d-dimer CT Scan of the Chest with Contrast: Technique: Contiguous sections were acquired throughout the chest after intravenous administration of 100 cc of Omnipaque 350. Dose reduction technique was used on this scan by utilizing automated expos ure control and iterative reconstruction technique. The dose-length product (DLP) was 256.86 mGy-cm. COMPARISON: 03/24/2023 Findings: There is no evidence of any significant mediastinal, hilar or axillary lymphadenopathy. There is no f illing defect in the pulmonary arterial tree to suggest pulmonary embolus. There is no evidence of ao rtic dissection or aneurysm. No pericardial effusion. Small left pleural effusion present. No right pleural effusion.. There is irregular consolidation in the left upper lobe. Right lung clear. Images through the upper abdomen reveal no abnormalities. Impression: No evidence of pulmonary embolus, aortic dissection, or aortic aneurysm. Irregular consolidation left upper lobe suspicious for pneumonia. Neoplasm felt to be less likely giv en the overall morphology of the lesion. Short-term follow-up exam in 1-3 months after interval thera py is recommended. Reviewed, dictated and finalized at [facility]. Impression: No evidence of pulmonary embolus, aortic dissection, or aortic aneurysm. Irregular consolidation left upper lobe suspicious for pneumonia. Neoplasm felt to be less likely given the overall morphology of the lesion. Short-term follo w-up exam in 1-3 months after interval therapy is recommended.
--- NOTE | ~2024-03-03 | CT_ITS ---
Noncontrast CT scan of the thoracic spine CLINICAL HISTORY: Back pain, status post fall TECHNIQUE: Axial noncontrast imaging of the thoracic spine was performed. Sagittal and coronal reform atted images were constructed. Dose reduction technique was used on this scan by utilizing automated exposure control and iterative reconstruction technique. The dose-length product (DLP) was 772.38 mGy -cm. FINDINGS: There is no fracture or subluxation of the thoracic spine. Mild kyphosis present. There are minimal scattered degenerative disc changes throughout the thoracic spine. No definite canal stenosi s/cord compression identified. Paravertebral soft tissues are unremarkable. Small left pleural effusion present. There is partially imaged consolidation left upper lobe. Impression: No fracture or subluxation. Small left pleural effusion with partially imaged consolidation left upper lobe, nonspecific. Reviewed, dictated and finalized at [facility]. Impression: No fracture or subluxation. Small left pleural effusion with partially imaged consolidation left upper lobe , nonspecific.
--- NOTE | ~2024-03-03 | XR_ITS ---
Portable chest x-ray Comparison: 10/02/2023 Clinical History: Syncope Findings: There is increased focal airspace consolidation the left upper lobe. Right lung clear. Min imal left pleural effusion present. Cardiomediastinal silhouette is stable. Bones and soft tissues a re unremarkable. Impression: Left upper lobe airspace consolidation, which appears more prominent as compared to prior exam. This could reflect neoplasm versus scarring, atelectasis, pneumonia. Clinical correlation required. Consid er dedicated chest CT to further evaluate. Small left pleural effusion. Reviewed, dictated and finalized at location [facility]. Impression: Left upper lobe airspace consolidation, which appears more prominent as compare d to prior exam. This could reflect neoplasm versus scarring, atelectasis, pneu monia. Clinical correlation required. Consider dedicated chest CT to further ev aluate. Small left pleural effusion.
[2024-03-03 23:01] VITALS: BP 121/88; PULSE 98; RESP 18; TEMP 36.4; O2SAT 91
--- NOTE | 2024-03-03 23:11 | ECG_ITS ---
SEE SCANNED COPY FOR CONFIRMED REPORT MTDD
[2024-03-03 23:20] VITALS: BP 134/103; PULSE 92; RESP 24; O2SAT 98
[2024-03-03 23:22] LABS: Basophils Absolute Auto 0.1 K/mm3 (0.0-0.1); Basophils Percent Auto 0.7 % (0.2-1.2); Eosinophils Absolute Auto 0.1 K/mm3 (0-0.3); Eosinophils Percent Auto 0.5 % (0-4.4); Hemoglobin 12.8 g/dL (12.0-15.0); Immature Granulocyte Absolute 0.03 K/mm3 (0.00-0.031); Immature Granulocyte Percent A 0.3 % (0-0.5); Lymphocytes Absolute Auto 1.38 K/mm3 (0.9-3.2); Lymphocytes Percent Auto 14.1 % (18.3-44.2); Mean Corpuscular HGB Conc 32.8 g/dl (32-36); Mean Corpuscular Hemoglobin 32.4 pg (26-34); Mean Corpuscular Volume 98.7 fl (80-100); Monocytes Absolute Auto 1.2 K/mm3 (0.1-0.6); Monocytes Percent Auto 11.7 % (2.6-8.5); Neutrophils Absolute Auto 7.1 K/mm3 (1.3-6.7); Neutrophils Percent Auto 72.7 % (45.5-73.1); Platelet Count Result 289 k/mm3 (150-375); Red Blood Count 3.95 M/mm3 (4.2-5.4); Red Cell Distribution Width 13.9 % (11.5-14.5); White Blood Count 9.8 K/mm3 (4.5-10.0)
[2024-03-03 23:35] LABS: INR 1.3; Prothrombin Time 16.9 Seconds (11.1-14.7)
[2024-03-03 23:36] LABS: Partial Thromboplastin Time 33.7 Seconds (22.3-36.8)
--- NOTE | 2024-03-03 23:39 | ED.SYNCOPE ---
HPI - Syncope General Chief Complaint: Fall <HANK Walker Last Filed: 03/04/24 18:02> Stated Complaint: glf - passed out and hit face <HANK Walker Last Filed: 03/04/24 18:02> Time Seen by Provider: 03/03/24 23:26 <HANK Walker Last Filed: 03/04/24 18:02> Source: patient <HANK Walker Last Filed: 03/04/24 18:02> Mode of arrival: wheelchair <HANK Walker Last Filed: 03/04/24 18:02> Limitations: other (patient does not remember incident) <HANK Walker Last Filed: 03/04/24 18:02> History of Present Illness HPI narrative: This is a 83 year old female that presents to the ER after a syncopal episode today. Patient reports she was walking back into her room and feeling tired. She woke up on the floor. Her had seen her about 30 minutes prior. No one witnessed the event. She did hit her head. Is on anticoagulation. Reports neck and back pain. Denies chest pain or shortness of breath. <HANK Walker Last Filed: 03/04/24 18:02> Related Data Home Medications: Home Medications Medication Instructions Recorded Confirmed atorvastatin 20 mg tablet 20 mg PO HS 03/04/24 03/04/24 fluoxetine 20 mg capsule 20 mg PO DAILY 03/04/24 03/04/24 furosemide 20 mg tablet 20 mg PO DAILY PRN LEG SWELLING 03/04/24 03/04/24 isosorbide mononitrate 10 mg tablet 10 mg PO DAILY 03/04/24 03/04/24 metoprolol tartrate 25 mg tablet 25 mg PO Q12H 03/04/24 03/04/24 psyllium husk 3.4 gram/5.4 gram 1 tbsp PO DAILY PRN CONSTIPATION 03/04/24 03/04/24 oral powder (Metamucil) <HANK Walker Last Filed: 03/04/24 18:02> Allergies/Adverse Reactions: Allergies Allergy/AdvReac Type Severity Reaction Status Date / Time cefadroxil Allergy Unknown Itching Verified 02/06/24 14:50 Sulfa (Sulfonamide Allergy Unknown rash Verified 02/06/24 14:50 Antibiotics) <Ibis Givens PA-C - Last Filed: 03/04/24 18:02> Review of Systems Review of Systems: CONSTITUTIONAL: Denies fever EYES: Denies visual changes CARDIOVASCULAR: Denies chest pain, or edema. RESPIRATORY: Denies dyspnea. GASTROINTESTINAL: Denies vomiting MUSCULOSKELETAL: Reports back pain, joint pain, and myalgia. NEUROLOGIC: Denies numbness, or weakness. <Ibis Givens PA-C - Last Filed: 03/04/24 18:02> All systems reviewed & are unremarkable except as noted in HPI and below <Ibis Givens PA-C - Last Filed: 03/04/24 18:02> [facility] Past Medical History Medical History: Medical History Bilateral hip pain Chronic kidney disease, stage 3 unspecified Coronary artery disease Elevated lipids Essential hypertension Fracture of distal end of radius GERD (gastroesophageal reflux disease) Lung cancer Obesity Osteoarthritis, hip, bilateral Pain in the coccyx Sacral fracture Status post fall Thyroid disease <Ibis Givens PA-C - Last Filed: 03/04/24 18:02> Surgical History Surgical History: Surgical History H/O: hysterectomy Status post primary angioplasty with coronary stent <HANK Walker Last Filed: 03/04/24 18:02> Family History Family History: Family History Sibling Hypertension Family history of diabetes mellitus in first degree relative Family history of arthritis Patient's brother is in good health Mother Family history of pancreatic cancer Diabetes mellitus Family history of cardiovascular disease Family history of malignant neoplasm Father Asthma Other Family history of tuberculosis <HANK Walker Last Filed: 03/04/24 18:02> Social History Social History: Social History Social History: Smoking status: Never smoker Second hand tobacco smoke exposure: No
[2024-03-03 23:45] LABS: Alanine Aminotransferase 10 U/L (6-35); Albumin Level 4.1 g/dL (3.5-5.1); Alkaline Phosphatase 103 U/L (38-126); Anion Gap 5 mmol/L (4-12); Aspartate Amino Transferase 28 U/L (14-36); Bilirubin,Total 0.6 mg/dL (0.2-1.3); Blood Urea Nitrogen 22 mg/dL (7-17); Calcium 8.8 mg/dL (8.4-10.2); Carbon Dioxide 25 mmol/L (22-30); Chloride 106 mmol/L (98-107); Estimated CRCL calculation 29 ml/min; Estimated Glomerular Filt Rate 53; Glucose 122 mg/dL (65-110); Potassium 3.6 mmol/L (3.4-5.0); Sodium 136 mmol/L (137-145)
[2024-03-04] VITALS (29 sets, daily range): BP systolic 122–153; BP diastolic 70–104; PULSE 83–113; RESP 16–28; TEMP 36–36.4; O2SAT 95–100; BMI 25.2
[2024-03-04 00:39] LABS: D Dimer 1.92 ug/mL (<0.48); Troponin I < 0.012 ng/mL (0.000-0.034)
--- NOTE | 2024-03-04 02:15 | PC.NURSE ---
Patient's family is visually and audible upset. Spouse states that We have been here two hours and nothing has been done . Patient was educated that an X-ray and CT scan of the head were performed and the results were given by GAB Baumann at bedside. Patient's spouse still upset that patient is waiting for CTA. Patient was educated that there was a patient down there at the moment.
--- NOTE | 2024-03-04 05:24 | ADMGEN ---
This patient, Quynh Cui, was admitted to IMU Room 231-01. Patient/family oriented to hospital policies and general routines including ID bracelet, bed and alarms, visiting hours, pain management, procedures, bathroom and other care routines, personal items, smoking policy, room service/diet, and visiting hours. Information on how to activate the Rapid Response Team has been discussed. Patient/Family are encouraged to report perceived risks to care and to ask questions if they do not understand what they are told or what they should do.
--- NOTE | 2024-03-04 05:55 | PM.IMHP ---
H&P: HPI History of Present Illness Date/Time: 03/04/24 05:55 Chief Complaint: 1. Fall 2. Syncope 3. Neck pain Narrative: Quynh Cui is an 83yo F with a mHx history significant for lung Ca s/p XRT, dyslipidemia, Depression, A-fib While at home, she sustained an unwitnessed fall; her was mowing the lawn for about 20-30 minutes prior to discovering her on the floor with a swelling on the left side of her head; There were no dizziness, nausea, vomitnig, chest pain, headaches, visual disturbance, tingling/numbness of limbs prior to fall. She does not smoke/chew tobacco, drink alcohol or consume recreational drugs; her family hx is not contributory to the PC At the bedside, she is alert and interactive; not in painful distress; +Left parietal hematoma; she is in a cervical collar Work-up findings: CBC and metabolic panel without concerning findings.? EKG without concerning changes and her baseline troponin is negative. CT brain without acute intracranial abnormality. CT cervical spine shows right lateral C2 base fracture without significant displacement. CT thoracic spine without acute findings. Quynh Cui will be admitted, evaluated and managed for a right lateral C2 base fracture without significant displacement Review of Systems Constitutional: Constitutional: Denies difficulty sleeping, Reports fatigue and Reports lethargy Eyes: Eyes: Reports no additional eye complaints and Denies blurry vision ENT: Reports Normal hearing present, Denies dysphagia, Denies epistaxis and Denies nasal congestion Cardiovascular: Cardiovascular: Reports no additional cardiovascular complaints, Denies pedal edema and Denies leg edema Gastrointestinal: Gastrointestinal: Reports no additional gastrointestinal complaints, Denies abdominal pain and Denies melena Musculoskeletal: Musculoskeletal: Reports back pain, Reports myalgias, Denies arthralgias, Denies joint swelling and Reports neck pain Neurologic: Denies Abnormal speech present, Denies abnormal gait, Denies confusion, Denies vertigo and Denies headache(s) Psychiatric: Psychiatric: Denies no additional psychiatric complaints, Reports anxiety, Denies confusion and Reports depression PMFSH Past Medical History Medical History Bilateral hip pain Chronic kidney disease, stage 3 unspecified Coronary artery disease Elevated lipids Essential hypertension Fracture of distal end of radius GERD (gastroesophageal reflux disease) Lung cancer Obesity Osteoarthritis, hip, bilateral Pain in the coccyx Sacral fracture Status post fall Thyroid disease Surgical History Surgical History H/O: hysterectomy Status post primary angioplasty with coronary stent Family History Family History Sibling Hypertension Family history of diabetes mellitus in first degree relative Family history of arthritis Patient's brother is in good health Mother Family history of pancreatic cancer Diabetes mellitus Family history of cardiovascular disease Family history of malignant neoplasm Father Asthma Other Family history of tuberculosis Social History Social History Social History: Smoking status: Never smoker Second hand tobacco smoke exposure: No Alcohol intake: never Substance use: never Substance use type: does not use Do You Feel Safe in your Home?: Yes Lack of Transportation: No Lack of Food: Never True Current Housing: I Have Housing Concerned About Future Housing: No Difficulty Paying Gas/Electric Bills: No Difficulty Paying for Meds: No Currently Unemployed: No Education: High School Diploma/GED Difficulty w/ Childcare or Family Care: No Living arrangements: with family Occupation/Education: retired [employer]
[2024-03-04] MEDS: ACETAMINOPHEN 325 MG TABLET 650 MG PO ×2 (11:48→21:17)
--- NOTE | 2024-03-04 11:49 | PM.IMPN ---
Progress Note: A&P Assessment and Plan (1) Closed cervical spine fracture: Code(s): S12.9XXA - Fracture of neck, unspecified, initial encounter Status: Acute (2) Unwitnessed fall: Code(s): R29.6 - Repeated falls Status: Acute (3) Hypothyroidism, unspecified: Code(s): E03.9 - Hypothyroidism, unspecified Status: Acute (4) Hypertension: Code(s): I10 - Essential (primary) hypertension Status: Acute (5) Dyslipidemia: Code(s): E78.5 - Hyperlipidemia, unspecified Status: Acute Plan This is an 83-year-old female who presented to the ED after syncopal episode on 03/03/2024 at home. No neurological deficit. Vitals were stable. Laboratory workup was unremarkable. EKG without concerning changes. Baseline troponin is negative. CT brain without acute intracranial abnormality. CT cervical spine showed right lateral C2 base fracture without significant displacement. CT thoracic spine without acute findings. On-call neurosurgery was consulted and awaiting that recommendations. On cervical collar. Bedrest. Left parietal hematoma Syncope Fall Chronic A-fib. on Eliquis, metoprolol. Will hold Eliquis resume metoprolol. Hypothyroidism. Dyslipidemia. Lung Ca. s/p XRT. follows with oncology. CTA done showed irregular consolidation left upper lobe suspicious for pneumonia. Neoplasm felt to be less likely given the overall morphology of the lesion. No clinical signs of symptoms of pneumonia. Known left upper lobe adenocarcinoma CKD3. Avoid nephrotoxins Recurrent depression. on Fluoxetine Hypothyroidism. On Levothyroxine Code status. Full Nutrition. NPO resume diet as no surgical plans VTE prophylaxis. Eliquis on hold; Subjective Date/time seen: 03/04/24 11:49 Interval history: On cervical collar no chest pain or shortness of breath, diagnosed with lung cancer and on treatment Review of Systems Review of Systems: All systems reviewed & are unremarkable except as noted in HPI and below Exam Narrative: GENERAL: Well-appearing, well-nourished, and in no acute distress. HEAD: Normocephalic. Hematoma to the left forehead EYES: PERRLA and EOMI. ENT: Nares clear, no rhinorrhea or epistaxis. Mucous membranes moist. NECK: Supple. No adenopathy or masses. C collar in place CHEST: Clear to auscultation. No respiratory distress. No wheezes rales or rhonchi HEART: Regular rate and rhythm. No murmur heard. Normal peripheral pulses. ABDOMEN: Soft, nontender, nondistended, normal active bowel sounds. BACK:No midline lumbar spine tenderness EXTREMITIES: Normal range of motion. No edema or obvious deformity. SKIN: Warm, dry, no rash. NEURO: No focal deficits. Alert and oriented x3. CN II-XII grossly intact PSYCH: Normal mood and affect Objective Data Vital Signs Vital Signs: Vital Signs - 24 hr 03/03/24 23:01 03/03/24 23:20 03/04/24 00:03 Temperature 97.5 F L Pulse Rate 98 92 96 Respiratory Rate 18 24 H 22 H Blood Pressure 121/88 134/103 H 130/92 H Pulse Oximetry 91 98 96 Oxygen Delivery Room Air 03/04/24 00:30 03/04/24 01:56 03/04/24 02:44 Temperature Pulse Rate 94 89 98 Respiratory Rate 16 16 28 H Blood Pressure 138/90 146/100 H 143/96 H Pulse Oximetry 100 95 97 Oxygen Delivery 03/04/24 03:11 03/04/24 03:37 03/04/24 04:08 Temperature Pulse Rate 94 108 H 95 Respiratory Rate 23 H 22 H 23 H Blood Pressure 140/94 H 142/89 H 130/99 H Pulse Oximetry 100 98 98 Oxygen Delivery 03/04/24 04:43 03/04/24 05:10 03/04/24 06:00 Temperature 97.1 F L Pulse Rate 97 110 H 105 H Respiratory Rate 22 H 16 Blood Pressure 122/70 138/89 Pulse Oximetry 97 98 Oxygen Delivery 03/04/24 07:44 03/04/24 07:56 03/04/24 08:00 Temperature 97.6 F Pulse Rate 104 H 102 H Respiratory Rate 16 Blood Pressure 140/86 Pulse Oximetry 98 98 Oxygen Delivery Room Air 03/04/24 10:00 03/04/24 11:41 03/04/24 08:03 Temperature 96.8 F L 9
[2024-03-04] MEDS: METOPROLOL TARTRATE 25 MG TABLET PO ×2 (12:10→21:17)
--- NOTE | 2024-03-04 15:08 | WPDNEUROSGCN ---
Assessment and Plan Assessment and plan (1) Traumatic closed fracture of C2 vertebra with minimal displacement: Code(s): S12.100A - Unspecified displaced fracture of second cervical vertebra, initial encounter for closed fracture Status: Acute Plan Neurologically intact As far as C2 fracture is concerned, this is non-operative. Will need better fitting c-collar for next 4 weeks. Will call orthotics for a Lanse collar. Follow-up with [facility] in 4 weeks for AP/lateral/flexion-extension c-spine xrays and likely remove collar at that time. As far as syncopal workup concerned, will defer to primary team Consult date: 03/04/24 Reason for consult: C2 fracture HPI: Quynh Cui is a 83 year old female with a PMHx significant for lung CA, a fib on Eliquis, now presents after a ground level fall. Amnestic for fall- found conscious by who was gone for 15 min prior. Complains of mild headache. Moderate right-sided neck pain. Mid-thoracic pain. Denies arm pain, weakness, numbness. Denies leg pain, weakness, numbness PMFSH Past Medical History Medical History Bilateral hip pain Chronic kidney disease, stage 3 unspecified Coronary artery disease Elevated lipids Essential hypertension Fracture of distal end of radius GERD (gastroesophageal reflux disease) Lung cancer Obesity Osteoarthritis, hip, bilateral Pain in the coccyx Sacral fracture Status post fall Thyroid disease Surgical History Surgical History H/O: hysterectomy Status post primary angioplasty with coronary stent Family History Family History Sibling Hypertension Family history of diabetes mellitus in first degree relative Family history of arthritis Patient's brother is in good health Mother Family history of pancreatic cancer Diabetes mellitus Family history of cardiovascular disease Family history of malignant neoplasm Father Asthma Other Family history of tuberculosis Social History Social History Social History: Smoking status: Never smoker Second hand tobacco smoke exposure: No Alcohol intake: never Substance use: never Substance use type: does not use Do You Feel Safe in your Home?: Yes Lack of Transportation: No Lack of Food: Never True Current Housing: I Have Housing Concerned About Future Housing: No Difficulty Paying Gas/Electric Bills: No Difficulty Paying for Meds: No Currently Unemployed: No Education: High School Diploma/GED Difficulty w/ Childcare or Family Care: No Living arrangements: with family Occupation/Education: retired Gender identity (if verbalized by the patient): Female Sexual Orientation (if Verbalized by the Patient): Straight or Heterosexual Spiritual care concerns: No Meds Home Medications and Allergies Home Medications Medication Instructions Recorded Confirmed Type compression socks, medium (Futuro #1 ea 08/19/19 03/04/24 Rx Restoring Medium) albuterol sulfate 90 mcg/actuation 1 puff inhalation Q4H PRN 05/11/22 03/04/24 Rx aerosol inhaler (ProAir HFA) shortness of breath or wheezing #8.5 grams levothyroxine 75 mcg tablet 75 mcg PO DAILY #90 tabs 09/05/23 03/04/24 Rx apixaban 5 mg tablet (Eliquis) 5 mg PO BID #60 tabs 11/30/23 03/04/24 Rx atorvastatin 20 mg tablet 20 mg PO HS 03/04/24 03/04/24 History fluoxetine 20 mg capsule 20 mg PO DAILY 03/04/24 03/04/24 History furosemide 20 mg tablet 20 mg PO DAILY PRN LEG SWELLING 03/04/24 03/04/24 History isosorbide mononitrate 10 mg tablet 10 mg PO DAILY 03/04/24 03/04/24 History metoprolol tartrate 25 mg tablet 25 mg PO Q12H 03/04/24 03/04/24 History psyllium husk 3.4 gram/5.4 gram 1 tbsp PO DAILY PRN CONSTIPATION 03/04/24 03/04/24 History or
--- NOTE | 2024-03-04 16:25 | PM.CNCAR ---
Assessment and Plan Assessment and plan (1) Hypertension: Code(s): I10 - Essential (primary) hypertension Status: Acute Assessment and Plan: High. (2) CAD in [place] artery: Code(s): I25.10 - Atherosclerotic heart disease of [place] coronary artery without angina pectoris Status: Acute Assessment and Plan: Stable. (3) Syncope: Qualifiers: Syncope type: unspecified Qualified Code(s): R55 - Syncope and collapse Code(s): R55 - Syncope and collapse Status: Acute Assessment and Plan: Could be due to orthostatic syncope, arrhythmias, bradycardia or other. Monitor on telemetry. (4) Cervical spine fracture: Code(s): S12.9XXA - Fracture of neck, unspecified, initial encounter Status: Acute (5) PAF (paroxysmal atrial fibrillation): Code(s): I48.0 - Paroxysmal atrial fibrillation Status: Acute Assessment and Plan: [id number] 5. In atrial fib. On Eliquis. On Metoprolol 25 mg BID for rate control and is controlled. Discuss that should she develop tachybrady syndrome, may need pacemaker. Discuss Eliquis vs Aspirin due to falls, and she is agreeable with aspirin EC 325 mg daily. Increase Metoprolol 25 mg PO Q8 HR for rate control. (6) Dyslipidemia: Code(s): E78.5 - Hyperlipidemia, unspecified Status: Acute Assessment and Plan: On Atorvastatin. History of Present Illness History of Present Illness Consult date/time: 03/04/24 16:25 Reason For Visit: Cervical spinal fracture, syncopal episode Narrative: 83 yr old woman who is my regular cardiology patient presents to ER with syncope. She has a history of stroke, hypertension, dyslipidemia, PAF. Her is at bedside. She was admitted after her found her on floor in their bedroom. She recalls walking in the room and that was it. This is first time she passed out. She has frequent falls in past due to weakness in her legs. She sustained a C2 vertebral fracture. She does not drink much water or fluid. She walks with a cane and limited at short distances only due to WONG. Admits to not sleeping well and has daytime sleepiness. Denies chest pain or sob, orthopnea, edema.? No palpitations. She is concerned she is becoming forgetful also. Cardiovascular Procedures Diesel Instructor:: 02/01/[address] Singh: LM 30% mid stenosis; LAD 90% prox, 50% mid-distal; 95% ostial first diagonal, 70% mid diagonal, RCA 30% mid; PCI to prox LAD; unable to cross Diagonal lesion with wire. Echo/MUGA:: 04/06/22 Echo: EF 55-60%, diastolic dysfunction (E/e' 10), Abnormal TAPSE 1.5 cm suggest RV dysfunction, mild LAE, trace AI/MR/PI, mild TR. 08/17/17 Echo: EF 60-65%, diastolic dysfunction (E/E' 13), mild LAE, mild MR/AI/TR, trace PI. Electrophysiology:: 07/27/22 EKG: Atrial fibrillation at 100 bpm, IRBBB. 05/24/22 EKG: Atrial fib at 106 bpm, IRBBB. 04/21/22 EKG: Atrial fib at 107 bpm, IRBBB. 04/13/22 EKG: Atrial fibrillation at 120 bpm, nonspecific ST changes. 03/07/22 EKG: Sinus bradycardia at 51 bpm, IRBBB, LVH. 02/16/20 EKG: Sinus rhythm at 41 bpm. 10/19/18 EKG: Sinus rhythm, RSR' in v1 or v2, consider RVH or right VCD. 05/26/17 EKG: Sinus rhythm, early precordial R/S transition. Stress Tests:: 05/26/[address] Old infarct left occipital and left temporal occipital region; chronic small vessel ischemic disease. Review of Systems Review of Systems: All systems reviewed & are unremarkable except as noted in HPI and below Constitutional: Constitutional: Reports as per HPI, Denies chills and Denies fever(s) Cardiovascular: Cardiovascular: Reports as per HPI, Denies chest pain and Denies irregular heart rhythm Respiratory: Respiratory: Reports as per HPI and Denies dyspnea Gastrointestinal: Gastrointestinal: Reports as per HPI and Denies abdominal pain Genitourinary: Genitourinary: Reports as per HPI and Denies dysuria Musculoskeletal: Musculoskeletal: Reports as per HPI Neurologic: Reports
[2024-03-04] MEDS: ATORVASTATIN 20 MG TABLET PO (21:17)
[2024-03-05] VITALS (19 sets, daily range): BP systolic 107–148; BP diastolic 71–89; PULSE 77–94; RESP 16–20; TEMP 36.3–36.6; O2SAT 94–99
--- NOTE | 2024-03-05 | ECHO_ITS ---
Patient Info Name: Quynh Cui Age: 83 years : 1940 Gender: Female Ht: 63 in Wt: 142 lbs BSA: 1.70 m2 HR: 79 bpm BP: 140 / 73 mmHg Technical Quality: Good Exam Date: 03/05/2024 9:15 AM Patient Status: Inpatient Admit Date: 03/04/2024 Staff Ordering Physician: Geraldo Nobles DO .Net Architect: Rebecca Tarango RDCS Attending Provider: Bg Newton MD Exam Type: CA echo doppler color flow Study Info Complete two-dimensional, color flow and Doppler transthoracic echocardiogram is performed. Summary 1. Complete two-dimensional, color flow and Doppler transthoracic echocardiogram is performed. 2. Left ventricular chamber dimension is normal. 3. Left ventricular systolic function is mildly reduced, estimated at 45-50%. 4. The left ventricular diastolic function is normal. 5. E/e' 9 is minimally elevated. 6. Left atrial chamber dimension is mildly enlarged. 7. Right atrial chamber dimension is mildly enlarged. 8. There is mild mitral valve regurgitation. 9. No pulmonary hypertension, estimated pulmonary arterial systolic pressure is 26 mmHg. Left Ventricle E/e' 9 is minimally elevated. Left ventricular chamber dimension is normal. Left ventricular systolic function is mildly reduced, estimated at 45-50%. The left ventricular diastolic function is normal. Right Ventricle Right ventricular chamber dimension is normal. Right ventricular systolic function is normal. Left Atria Left atrial chamber dimension is mildly enlarged. Right Atria Right atrial chamber dimension is mildly enlarged. Aortic Valve The aortic valve is trileaflet. There is no aortic valve stenosis. There is no aortic valve regurgitation. Pulmonic Valve There is no pulmonic regurgitation. Mitral Valve There is no mitral valve stenosis. There is mild mitral valve regurgitation. Tricuspid Valve There is no tricuspid valve regurgitation. No pulmonary hypertension, estimated pulmonary arterial systolic pressure is 26 mmHg. Pericardium/Pleural There is no pericardial effusion. Inferior Vena Cava Normal inferior vena cava with >50% collapse upon inspiration consistent with normal right atrial pressure, 5 mmHg. Aorta The aortic root size at the sinus of Valsalva is normal. Left Ventricular Outflow Tract Name Value Normal LVOT 2D LVOT Diameter 2.0 cm LVOT Doppler LVOT Peak Gradient 2 mmHg LVOT Mean Gradient 1 mmHg LVOT VTI 11 cm LVOT VTI/AV VTI Ratio 0.7 LVOT Stroke Volume 32 ml LVOT CO 2.6 l/min LVOT CI 1.5 l/min/m2 Pulmonic Valve Name Value Normal RVOT Doppler RVOT Peak Gradient 1 mmHg PV Doppler PV Peak Gradient 4 mmHg Mitral
[2024-03-05 04:56] LABS: Basophils Absolute Auto 0.1 K/mm3 (0.0-0.1); Basophils Percent Auto 0.8 % (0.2-1.2); Eosinophils Absolute Auto 0.1 K/mm3 (0-0.3); Eosinophils Percent Auto 1.1 % (0-4.4); Hematocrit 38.6 % (37.0-47.0); Hemoglobin 12.2 g/dL (12.0-15.0); Immature Granulocyte Absolute 0.04 K/mm3 (0.00-0.031); Immature Granulocyte Percent A 0.5 % (0-0.5); Lymphocytes Absolute Auto 1.32 K/mm3 (0.9-3.2); Lymphocytes Percent Auto 15.6 % (18.3-44.2); Mean Corpuscular HGB Conc 31.6 g/dl (32-36); Mean Corpuscular Hemoglobin 32.4 pg (26-34); Mean Corpuscular Volume 102.4 fl (80-100); Mean Platelet Volume 9.3 fl (7.4-10.4); Monocytes Absolute Auto 1.1 K/mm3 (0.1-0.6); Neutrophils Absolute Auto 5.8 K/mm3 (1.3-6.7); Platelet Count Result 284 k/mm3 (150-375); Red Blood Count 3.77 M/mm3 (4.2-5.4); Red Cell Distribution Width 13.9 % (11.5-14.5); White Blood Count 8.5 K/mm3 (4.5-10.0)
[2024-03-05 05:13] LABS: Alanine Aminotransferase 9 U/L (6-35); Albumin Level 3.9 g/dL (3.5-5.1); Alkaline Phosphatase 101 U/L (38-126); Anion Gap 7 mmol/L (4-12); Aspartate Amino Transferase 27 U/L (14-36); Bilirubin,Total 1.1 mg/dL (0.2-1.3); Blood Urea Nitrogen 16 mg/dL (7-17); Calcium 8.7 mg/dL (8.4-10.2); Carbon Dioxide 24 mmol/L (22-30); Chloride 104 mmol/L (98-107); Estimated CRCL calculation 38 ml/min; Estimated Glomerular Filt Rate > 60; Glucose 106 mg/dL (65-110); Sodium 135 mmol/L (137-145)
[2024-03-05] MEDS: METOPROLOL TARTRATE 25 MG TABLET PO ×3 (06:32→21:28)
[2024-03-05] MEDS: LEVOTHYROXINE SODIUM 75 MCG TABLET PO (06:32)
[2024-03-05] MEDS: ASPIRIN 325 MG ENTERIC TABLET PO (07:56)
[2024-03-05] MEDS: ISOSORBIDE MONONITRATE 10 MG TABLET PO (07:56)
[2024-03-05] MEDS: FLUoxetine HCL 20 MG CAPSULE PO (07:56)
[2024-03-05] MEDS: ACETAMINOPHEN 325 MG TABLET 650 MG PO ×2 (10:50→18:55)
--- NOTE | 2024-03-05 14:22 | PM.IMPN ---
Progress Note: A&P Assessment and Plan (1) Closed cervical spine fracture: Code(s): S12.9XXA - Fracture of neck, unspecified, initial encounter Status: Acute (2) Unwitnessed fall: Code(s): R29.6 - Repeated falls Status: Acute (3) Hypothyroidism, unspecified: Code(s): E03.9 - Hypothyroidism, unspecified Status: Acute (4) Hypertension: Code(s): I10 - Essential (primary) hypertension Status: Acute (5) Dyslipidemia: Code(s): E78.5 - Hyperlipidemia, unspecified Status: Acute Plan This is an 83-year-old female who presented to the ED after syncopal episode on 03/03/2024 at home. No neurological deficit. Vitals were stable. Laboratory workup was unremarkable. EKG without concerning changes. Baseline troponin is negative. CT brain without acute intracranial abnormality. CT cervical spine showed right lateral C2 base fracture without significant displacement. CT thoracic spine without acute findings. On-call neurosurgery was consulted and awaiting that recommendations. On cervical collar. On [place] J collar non operative management. PT OT to see Left parietal hematoma Syncope Fall Chronic A-fib. on Eliquis, metoprolol. Will hold Eliquis resume metoprolol. Echo with EF 45-50% significant valvular abnormality. Cardiology consulted. Due to falls discussion led to discontinuation of Eliquis and starting on aspirin. Metoprolol RVR Hypothyroidism. Dyslipidemia. Lung Ca. s/p XRT. follows with oncology. CTA done showed irregular consolidation left upper lobe suspicious for pneumonia. Neoplasm felt to be less likely given the overall morphology of the lesion. No clinical signs of symptoms of pneumonia. Known left upper lobe adenocarcinoma CKD3. Avoid nephrotoxins Recurrent depression. on Fluoxetine Hypothyroidism. On Levothyroxine Code status. Full Nutrition. NPO resume diet as no surgical plans VTE prophylaxis. Eliquis on hold; Subjective Date/time seen: 03/05/24 14:22 Interval history: No overnight events. Consult notes reviewed. Neck is mildly sore but otherwise no new complaints Review of Systems Review of Systems: All systems reviewed & are unremarkable except as noted in HPI and below Exam Narrative: GENERAL: Well-appearing, well-nourished, and in no acute distress. HEAD: Normocephalic. Hematoma to the left forehead EYES: PERRLA and EOMI. ENT: Nares clear, no rhinorrhea or epistaxis. Mucous membranes moist. NECK: Supple. No adenopathy or masses. C collar in place CHEST: Clear to auscultation. No respiratory distress. No wheezes rales or rhonchi HEART: Regular rate and rhythm. No murmur heard. Normal peripheral pulses. ABDOMEN: Soft, nontender, nondistended, normal active bowel sounds. BACK:No midline lumbar spine tenderness EXTREMITIES: Normal range of motion. No edema or obvious deformity. SKIN: Warm, dry, no rash. NEURO: No focal deficits. Alert and oriented x3. CN II-XII grossly intact PSYCH: Normal mood and affect Objective Data Vital Signs Vital Signs: Vital Signs - 24 hr 03/04/24 16:00 03/04/24 16:00 03/04/24 16:00 Temperature 97.2 F L Pulse Rate 96 96 105 H Respiratory Rate 18 20 Blood Pressure 142/104 H Pulse Oximetry 96 100 Oxygen Delivery Room Air 03/04/24 16:55 03/04/24 16:56 03/04/24 16:56 Temperature Pulse Rate Respiratory Rate Blood Pressure 142/104 H 142/82 H 128/81 Pulse Oximetry Oxygen Delivery 03/04/24 18:00 03/04/24 20:04 03/04/24 21:17 Temperature 97.3 F L Pulse Rate 88 85 92 Respiratory Rate 20 Blood Pressure 133/85 Pulse Oximetry 100 Oxygen Delivery 03/04/24 20:00 03/04/24 20:00 03/04/24 22:00 Temperature Pulse Rate 83 83 96 Respiratory Rate 20 Blood Pressure Pulse Oximetry 100 Oxygen Delivery Room Air 03/04/24 23:15 03/04/24 23:15 03/04/24 23:31 Temperature 97.3 F L Pulse Rate 94 94 85 Respiratory Rate 20 20 Blood Pressure
--- NOTE | 2024-03-05 16:50 | PC.NURSE ---
This patient, Quynh Cui, was received from [id number] on 03/05/24 at 1650 . Patient/family oriented to unit policies and routines
--- NOTE | 2024-03-05 16:55 | PC.NURSE ---
pt moved to room 323 - 2 via bed accompanied by staff;belongings with pt ; report given to Yolanda OZUNA- sitter accompanied pt on transfer; pt called [facility] about transfer of rooms
[2024-03-05] MEDS: ATORVASTATIN 20 MG TABLET PO (21:29)
[2024-03-06] VITALS (10 sets, daily range): BP systolic 108–140; BP diastolic 72–95; PULSE 79–102; RESP 16–20; TEMP 36.2–36.8; O2SAT 98–100
[2024-03-06] MEDS: METOPROLOL TARTRATE 25 MG TABLET PO ×3 (05:14→20:53)
[2024-03-06] MEDS: LEVOTHYROXINE SODIUM 75 MCG TABLET PO (05:15)
[2024-03-06 06:27] LABS: Basophils Absolute Auto 0.1 K/mm3 (0.0-0.1); Basophils Percent Auto 1.1 % (0.2-1.2); Eosinophils Absolute Auto 0.2 K/mm3 (0-0.3); Eosinophils Percent Auto 2.7 % (0-4.4); Hematocrit 34.3 % (37.0-47.0); Hemoglobin 11.4 g/dL (12.0-15.0); Immature Granulocyte Absolute 0.03 K/mm3 (0.00-0.031); Immature Granulocyte Percent A 0.5 % (0-0.5); Lymphocytes Absolute Auto 1.14 K/mm3 (0.9-3.2); Lymphocytes Percent Auto 18.2 % (18.3-44.2); Mean Corpuscular HGB Conc 33.2 g/dl (32-36); Mean Corpuscular Hemoglobin 33.3 pg (26-34); Mean Corpuscular Volume 100.3 fl (80-100); Mean Platelet Volume 9.1 fl (7.4-10.4); Monocytes Absolute Auto 0.8 K/mm3 (0.1-0.6); Monocytes Percent Auto 13.2 % (2.6-8.5); Neutrophils Percent Auto 64.3 % (45.5-73.1); Platelet Count Result 254 k/mm3 (150-375); Red Blood Count 3.42 M/mm3 (4.2-5.4); Red Cell Distribution Width 14.1 % (11.5-14.5); White Blood Count 6.3 K/mm3 (4.5-10.0)
[2024-03-06 06:40] LABS: Alanine Aminotransferase 9 U/L (6-35); Albumin Level 3.3 g/dL (3.5-5.1); Alkaline Phosphatase 89 U/L (38-126); Anion Gap 2 mmol/L (4-12); Aspartate Amino Transferase 22 U/L (14-36); Bilirubin,Total 0.8 mg/dL (0.2-1.3); Blood Urea Nitrogen 19 mg/dL (7-17); Calcium 8.4 mg/dL (8.4-10.2); Carbon Dioxide 28 mmol/L (22-30); Chloride 105 mmol/L (98-107); Estimated CRCL calculation 38 ml/min; Estimated Glomerular Filt Rate 60; Glucose 96 mg/dL (65-110); Potassium 4.1 mmol/L (3.4-5.0); Sodium 135 mmol/L (137-145)
--- NOTE | 2024-03-06 07:45 | PM.PNCARD ---
Progress Note: A&P Assessment and Plan (1) Hypertension: Code(s): I10 - Essential (primary) hypertension Status: Acute Assessment and Plan: Stable. (2) CAD in [place] artery: Code(s): I25.10 - Atherosclerotic heart disease of [place] coronary artery without angina pectoris Status: Acute Assessment and Plan: Stable. (3) Syncope: Qualifiers: Syncope type: unspecified Qualified Code(s): R55 - Syncope and collapse Code(s): R55 - Syncope and collapse Status: Acute Assessment and Plan: Could be due to orthostatic syncope, arrhythmias, bradycardia or other. 03/05/24 Echo: EF 45-50%, mild biatrial enlargement, mild MR. Advise to keep well hydrated drinking at least 1.5 l/day. Upon discharge will place 30 day event monitor. (4) Cervical spine fracture: Qualifiers: Cervical vertebra fracture level: C2 Encounter type: initial encounter Fracture alignment: nondisplaced Fracture morphology: other fracture Fracture type: closed Qualified Code(s): S12.191A - Other nondisplaced fracture of second cervical vertebra, initial encounter for closed fracture Code(s): S12.9XXA - Fracture of neck, unspecified, initial encounter Status: Acute (5) PAF (paroxysmal atrial fibrillation): Code(s): I48.0 - Paroxysmal atrial fibrillation Status: Acute Assessment and Plan: [id number] 5. In atrial fib. On Eliquis. On Metoprolol 25 mg BID for rate control and is controlled. Discuss Eliquis vs Aspirin due to falls, and she is agreeable with aspirin EC 325 mg daily. On Metoprolol 25 mg PO Q8 HR for rate control. (6) Dyslipidemia: Code(s): E78.5 - Hyperlipidemia, unspecified Status: Acute Assessment and Plan: On Atorvastatin. Subjective Date/time seen: 03/06/24 07:45 Interval history: She got confused yesterday after bathing. No chest pain, sob or dizziness. Exam Const: General: cooperative, healthy appearing and comfortable Orientation/consciousness: oriented to person, oriented to place and oriented to time Resp: Auscultation: clear to auscultation bilaterally, no crackles, no rales, no rhonchi and no wheezes Cardio: Rate: regular rate Rhythm: abnormal rhythm Heart sounds: no murmurs Neuro: General: oriented to person, oriented to place and oriented to time Extrem: Right lower extremity: no edema Left lower extremity: no edema Objective Data Vital Signs Vital Signs: Vital Signs - 24 hr 03/05/24 08:00 03/05/24 08:00 03/05/24 08:00 Temperature Pulse Rate 89 89 89 Respiratory Rate 20 20 Blood Pressure Pulse Oximetry 98 98 Oxygen Delivery Room Air 03/05/24 10:00 03/05/24 11:29 03/05/24 12:00 Temperature 97.4 F L Pulse Rate 83 77 94 Respiratory Rate 20 Blood Pressure 113/84 Pulse Oximetry 99 Oxygen Delivery 03/05/24 12:00 03/05/24 14:05 03/05/24 14:15 Temperature Pulse Rate 86 90 Respiratory Rate Blood Pressure Pulse Oximetry Oxygen Delivery Room Air 03/05/24 15:38 03/05/24 15:49 03/05/24 16:50 Temperature 97.4 F L 97.3 F L Pulse Rate 83 80 86 Respiratory Rate 20 18 Blood Pressure 121/71 148/83 H Pulse Oximetry 99 94 Oxygen Delivery 03/05/24 21:28 03/05/24 20:00 03/05/24 21:54 Temperature 97.9 F Pulse Rate 86 90 Respiratory Rate 16 Blood Pressure 114/82 107/72 Pulse Oximetry 97 Oxygen Delivery 03/05/24 21:53 03/06/24 05:02 03/06/24 05:14 Temperature 98.3 F Pulse Rate 79 79 Respiratory Rate 16 Blood Pressure 112/71 140/83 Pulse Oximetry 100 Oxygen Delivery Intake/Output Intake/Output: Intake & Output 03/03/24 03/04/24 03/05/24 03/06/24 23:59 23:59 23:59 23:59 Intake Total 780 940 300 Output Total 700 400 400 Balance 80 540 -100 Meds/Results Medications: Active Medications Generic Name Dose Route Start Last Admin Trade Name Freq PRN Reason Stop Dose Admin Acetam
[2024-03-06] MEDS: FLUoxetine HCL 20 MG CAPSULE PO (09:35)
[2024-03-06] MEDS: ASPIRIN 325 MG ENTERIC TABLET PO (09:35)
[2024-03-06] MEDS: ISOSORBIDE MONONITRATE 10 MG TABLET PO (09:57)
--- NOTE | 2024-03-06 17:08 | PM.IMPN ---
Progress Note: A&P Assessment and Plan (1) Closed cervical spine fracture: Code(s): S12.9XXA - Fracture of neck, unspecified, initial encounter Status: Acute (2) Unwitnessed fall: Code(s): R29.6 - Repeated falls Status: Acute (3) Hypothyroidism, unspecified: Code(s): E03.9 - Hypothyroidism, unspecified Status: Acute (4) Hypertension: Code(s): I10 - Essential (primary) hypertension Status: Acute (5) Dyslipidemia: Code(s): E78.5 - Hyperlipidemia, unspecified Status: Acute Plan This is an 83-year-old female who presented to the ED after syncopal episode on 03/03/2024 at home. No neurological deficit. Vitals were stable. Laboratory workup was unremarkable. EKG without concerning changes. Baseline troponin is negative. CT brain without acute intracranial abnormality. CT cervical spine showed right lateral C2 base fracture without significant displacement. CT thoracic spine without acute findings. On-call neurosurgery was consulted and awaiting that recommendations. On cervical collar. On [place] J collar non operative management. PT OT to see Per Neurosurgery: Neurologically intact As far as C2 fracture is concerned, this is non-operative.? Will need better fitting c-collar for next 4 weeks.? Will call orthotics for a [place] collar. Follow-up with [facility] in 4 weeks for AP/lateral/flexion-extension c-spine xrays and likely remove collar at that time. 03/06/24: Will likely DC tomorrow to [facility] [place] Left parietal hematoma Syncope Fall Chronic A-fib. on Eliquis, metoprolol. Will hold Eliquis resume metoprolol. Echo with EF 45-50% significant valvular abnormality. Cardiology consulted. Due to falls discussion led to discontinuation of Eliquis and starting on aspirin. Metoprolol RVR Hypothyroidism. Dyslipidemia. Lung Ca. s/p XRT. follows with oncology. C TA done showed irregular consolidation left upper lobe suspicious for pneumonia. Neoplasm felt to be less likely given the overall morphology of the lesion. No clinical signs of symptoms of pneumonia. Known left upper lobe adenocarcinoma CKD3. Avoid nephrotoxins Recurrent depression. on Fluoxetine Hypothyroidism. On Levothyroxine Code status. Full Nutrition. NPO resume diet as no surgical plans VTE prophylaxis. Eliquis on hold; Time Spent With Patient Time with patient: 25 - 35 minutes Subjective Date/time seen: 03/06/24 17:08 Interval history: 02/27/24: Seen and examined; Cervical collar in-situ; Review of Systems Review of Systems: All systems reviewed & are unremarkable except as noted in HPI and below Constitutional: Constitutional: Denies difficulty sleeping, Reports fatigue, Denies headache(s) and Reports lethargy Eyes: Eyes: Reports no additional eye complaints and Denies blurry vision ENT: Reports Normal hearing present, Denies dysphagia, Denies vertigo, Denies headache(s), Denies epistaxis, Denies nasal congestion and Reports neck pain Cardiovascular: Cardiovascular: Reports no additional cardiovascular complaints, Denies pedal edema and Denies leg edema Gastrointestinal: Gastrointestinal: Reports no additional gastrointestinal complaints, Denies abdominal pain, Denies melena and Denies dysphagia Musculoskeletal: Musculoskeletal: Denies abnormal gait, Reports back pain, Reports myalgias, Denies arthralgias, Denies joint swelling and Reports neck pain Neurologic: Reports Normal hearing present, Denies Abnormal speech present, Denies abnormal gait, Denies confusion, Denies vertigo and Denies headache(s) Psychiatric: Psychiatric: Denies no additional psychiatric complaints, Reports anxiety, Denies confusion and Reports depression Endocrine: Endocrine: Reports fatigue Exam Narrative: GENERAL: Well-appearing, well-nourished, and in no acute distress. HEAD: Normocephalic. Hematoma to the left forehead EYES: PERRLA and EOMI. ENT: Nares clear, no rhinorrhea or
[2024-03-06] MEDS: ATORVASTATIN 20 MG TABLET PO (20:53)
[2024-03-06] MEDS: ACETAMINOPHEN 325 MG TABLET 650 MG PO (23:39)
[2024-03-07] VITALS (11 sets, daily range): BP systolic 98–132; BP diastolic 74–95; PULSE 78–88; RESP 16–22; TEMP 36.2–36.7; O2SAT 98
[2024-03-07] MEDS: METOPROLOL TARTRATE 25 MG TABLET PO ×3 (05:29→20:21)
[2024-03-07] MEDS: LEVOTHYROXINE SODIUM 75 MCG TABLET PO (05:29)
[2024-03-07 06:18] LABS: Basophils Absolute Auto 0.1 K/mm3 (0.0-0.1); Basophils Percent Auto 0.9 % (0.2-1.2); Eosinophils Absolute Auto 0.1 K/mm3 (0-0.3); Eosinophils Percent Auto 1.7 % (0-4.4); Hematocrit 36.1 % (37.0-47.0); Hemoglobin 11.9 g/dL (12.0-15.0); Immature Granulocyte Absolute 0.04 K/mm3 (0.00-0.031); Immature Granulocyte Percent A 0.5 % (0-0.5); Lymphocytes Absolute Auto 1.27 K/mm3 (0.9-3.2); Lymphocytes Percent Auto 16.2 % (18.3-44.2); Mean Corpuscular Hemoglobin 33.2 pg (26-34); Mean Corpuscular Volume 100.8 fl (80-100); Monocytes Percent Auto 13.2 % (2.6-8.5); Neutrophils Absolute Auto 5.3 K/mm3 (1.3-6.7); Neutrophils Percent Auto 67.5 % (45.5-73.1); Platelet Count Result 270 k/mm3 (150-375); Red Blood Count 3.58 M/mm3 (4.2-5.4); White Blood Count 7.9 K/mm3 (4.5-10.0)
[2024-03-07 06:24] LABS: Alanine Aminotransferase 9 U/L (6-35); Albumin Level 3.3 g/dL (3.5-5.1); Alkaline Phosphatase 93 U/L (38-126); Anion Gap 3 mmol/L (4-12); Aspartate Amino Transferase 22 U/L (14-36); Bilirubin,Total 0.8 mg/dL (0.2-1.3); Blood Urea Nitrogen 17 mg/dL (7-17); Calcium 8.8 mg/dL (8.4-10.2); Carbon Dioxide 28 mmol/L (22-30); Chloride 103 mmol/L (98-107); Estimated CRCL calculation 34 ml/min; Estimated Glomerular Filt Rate 53; Glucose 90 mg/dL (65-110); Potassium 4.3 mmol/L (3.4-5.0); Sodium 134 mmol/L (137-145)
--- NOTE | 2024-03-07 08:01 | PM.PNCARD ---
Progress Note: A&P Assessment and Plan (1) Hypertension: Code(s): I10 - Essential (primary) hypertension Status: Acute Assessment and Plan: Stable. (2) CAD in [place] artery: Code(s): I25.10 - Atherosclerotic heart disease of [place] coronary artery without angina pectoris Status: Acute Assessment and Plan: Stable. (3) Syncope: Qualifiers: Syncope type: unspecified Qualified Code(s): R55 - Syncope and collapse Code(s): R55 - Syncope and collapse Status: Acute Assessment and Plan: Could be due to orthostatic syncope, arrhythmias, bradycardia or other. 03/05/24 Echo: EF 45-50%, mild biatrial enlargement, mild MR. Advise to keep well hydrated drinking at least 1.5 l/day. Upon discharge will place 30 day event monitor. My office will place it today. F/U with me in 1 month. (4) Cervical spine fracture: Qualifiers: Cervical vertebra fracture level: C2 Encounter type: initial encounter Fracture alignment: nondisplaced Fracture morphology: other fracture Fracture type: closed Qualified Code(s): S12.191A - Other nondisplaced fracture of second cervical vertebra, initial encounter for closed fracture Code(s): S12.9XXA - Fracture of neck, unspecified, initial encounter Status: Acute (5) PAF (paroxysmal atrial fibrillation): Code(s): I48.0 - Paroxysmal atrial fibrillation Status: Acute Assessment and Plan: [id number] 5. In atrial fib. On Eliquis. Was on Metoprolol 25 mg BID for rate control and is controlled. Discuss Eliquis vs Aspirin due to falls, and she is agreeable with aspirin EC 325 mg daily. On Metoprolol 25 mg PO Q8 HR for rate control. (6) Dyslipidemia: Code(s): E78.5 - Hyperlipidemia, unspecified Status: Acute Assessment and Plan: On Atorvastatin. Subjective Date/time seen: 03/07/24 08:01 Interval history: No chest pain, sob or dizziness. Exam Const: General: cooperative, healthy appearing and comfortable Orientation/consciousness: oriented to person, oriented to place and oriented to time Resp: Auscultation: clear to auscultation bilaterally, no crackles, no rales, no rhonchi and no wheezes Cardio: Rate: regular rate Rhythm: abnormal rhythm Heart sounds: no murmurs Neuro: General: oriented to person, oriented to place and oriented to time Extrem: Right lower extremity: no edema Left lower extremity: no edema Objective Data Vital Signs Vital Signs: Vital Signs - 24 hr 03/06/24 08:34 03/06/24 14:00 03/06/24 14:00 Temperature 97.2 F L 97.2 F L Pulse Rate 93 93 Respiratory Rate 18 18 Blood Pressure 109/72 109/72 Pulse Oximetry 100 100 Oxygen Delivery Room Air 03/06/24 14:05 03/06/24 14:10 03/06/24 14:37 Temperature 97.4 F L 97.4 F L Pulse Rate 96 100 82 Respiratory Rate 20 20 Blood Pressure 115/75 108/76 Pulse Oximetry 100 99 Oxygen Delivery 03/06/24 09:35 03/06/24 20:00 03/06/24 20:00 Temperature 98.0 F Pulse Rate 102 H Respiratory Rate 16 Blood Pressure 139/78 139/78 Pulse Oximetry 99 98 Oxygen Delivery Room Air 03/06/24 20:24 03/06/24 20:24 03/06/24 20:53 Temperature Pulse Rate 90 Respiratory Rate Blood Pressure 129/79 135/95 H Pulse Oximetry Oxygen Delivery 03/07/24 05:29 03/07/24 06:00 Temperature 97.2 F L Pulse Rate 88 79 Respiratory Rate 18 Blood Pressure 131/86 Pulse Oximetry 98 Oxygen Delivery Intake/Output Intake/Output: Intake & Output 03/04/24 03/05/24 03/06/24 03/07/24 23:59 23:59 23:59 23:59 Intake Total 345 042 2460 Output Total 700 400 650 500 Balance 80 540 1160 -500 Meds/Results Medications: Active Medications Generic Name Dose Route Start Last Admin Trade Name Freq PRN Reason Stop Dose Admin Acetaminophen 650 mg 03/04/24 05:52 03/06/24 23:39 Acetaminophen 325 Mg Tablet PO 650 mg Q4H PRN Administration Mild Pain (1-3) or Fe
[2024-03-07] MEDS: ASPIRIN 325 MG ENTERIC TABLET PO (08:25)
[2024-03-07] MEDS: FLUoxetine HCL 20 MG CAPSULE PO (08:25)
[2024-03-07] MEDS: ISOSORBIDE MONONITRATE 10 MG TABLET PO (08:25)
[2024-03-07] MEDS: ALBUTEROL SULFATE (*SP) AEROSOL 1 PUFF INHALATION (10:46)
--- NOTE | 2024-03-07 12:50 | PM.IMPN ---
Progress Note: A&P Assessment and Plan (1) Closed cervical spine fracture: Code(s): S12.9XXA - Fracture of neck, unspecified, initial encounter Status: Acute (2) Unwitnessed fall: Code(s): R29.6 - Repeated falls Status: Acute (3) Hypothyroidism, unspecified: Code(s): E03.9 - Hypothyroidism, unspecified Status: Acute (4) Hypertension: Code(s): I10 - Essential (primary) hypertension Status: Acute (5) Dyslipidemia: Code(s): E78.5 - Hyperlipidemia, unspecified Status: Acute Plan This is an 83-year-old female who presented to the ED after syncopal episode on 03/03/2024 at home. No neurological deficit. Vitals were stable. Laboratory workup was unremarkable. EKG without concerning changes. Baseline troponin is negative. CT brain without acute intracranial abnormality. CT cervical spine showed right lateral C2 base fracture without significant displacement. CT thoracic spine without acute findings. On-call neurosurgery was consulted and awaiting that recommendations. On cervical collar. On [place] J collar non operative management. PT OT to see Per Neurosurgery: Neurologically intact As far as C2 fracture is concerned, this is non-operative.? Will need better fitting c-collar for next 4 weeks.? Will call orthotics for a [place] collar. Follow-up with [facility] in 4 weeks for AP/lateral/flexion-extension c-spine xrays and likely remove collar at that time. 03/06/24: Will likely DC tomorrow to [facility] 03/07/24: Will pursue SNF stay; daughter and not willing to accept her. Left parietal hematoma Syncope Fall Chronic A-fib. on Eliquis, metoprolol. Will hold Eliquis resume metoprolol. Echo with EF 45-50% significant valvular abnormality. Cardiology consulted. Due to falls discussion led to discontinuation of Eliquis and starting on aspirin. Metoprolol RVR Hypothyroidism. Dyslipidemia. Lung Ca. s/p XRT. follows with oncology. C TA done showed irregular consolidation left upper lobe suspicious for pneumonia. Neoplasm felt to be less likely given the overall morphology of the lesion. No clinical signs of symptoms of pneumonia. Known left upper lobe adenocarcinoma CKD3. Avoid nephrotoxins Recurrent depression. on Fluoxetine Hypothyroidism. On Levothyroxine Code status. Full Nutrition. NPO resume diet as no surgical plans VTE prophylaxis. Mayito on hold; Subjective Date/time seen: 03/07/24 12:50 Interval history: 03/07/24: Seen and examined; Daughter and not willing to receive her back home with [facility]; they demand SNF stay Review of Systems Review of Systems: All systems reviewed & are unremarkable except as noted in HPI and below Constitutional: Constitutional: Denies difficulty sleeping, Reports fatigue, Denies headache(s) and Reports lethargy Eyes: Eyes: Reports no additional eye complaints and Denies blurry vision ENT: Reports Normal hearing present, Denies dysphagia, Denies vertigo, Denies headache(s), Denies epistaxis, Denies nasal congestion and Reports neck pain Cardiovascular: Cardiovascular: Reports no additional cardiovascular complaints, Denies pedal edema and Denies leg edema Gastrointestinal: Gastrointestinal: Reports no additional gastrointestinal complaints, Denies abdominal pain, Denies melena and Denies dysphagia Musculoskeletal: Musculoskeletal: Denies abnormal gait, Reports back pain, Reports myalgias, Denies arthralgias, Denies joint swelling and Reports neck pain Neurologic: Reports Normal hearing present, Denies Abnormal speech present, Denies abnormal gait, Denies confusion, Denies vertigo and Denies headache(s) Psychiatric: Psychiatric: Denies no additional psychiatric complaints, Reports anxiety, Denies confusion and Reports depression Endocrine: Endocrine: Reports fatigue Exam Narrative: GENERAL: Well-appearing, well-nourished, and in no acute distress. HEAD: Normocephalic. Hematom
[2024-03-07] MEDS: ATORVASTATIN 20 MG TABLET PO (20:21)
[2024-03-07] MEDS: ACETAMINOPHEN 325 MG TABLET 650 MG PO (20:22)
[2024-03-08 05:37] VITALS: PULSE 74
[2024-03-08] MEDS: METOPROLOL TARTRATE 25 MG TABLET PO ×2 (05:37→13:38)
[2024-03-08] MEDS: LEVOTHYROXINE SODIUM 75 MCG TABLET PO (05:37)
[2024-03-08 06:00] VITALS: BP 138/94; PULSE 73; RESP 20; TEMP 36.4; O2SAT 98
[2024-03-08 06:28] LABS: Basophils Absolute Auto 0.1 K/mm3 (0.0-0.1); Basophils Percent Auto 1.2 % (0.2-1.2); Eosinophils Absolute Auto 0.1 K/mm3 (0-0.3); Eosinophils Percent Auto 1.9 % (0-4.4); Hematocrit 37.9 % (37.0-47.0); Hemoglobin 12.2 g/dL (12.0-15.0); Immature Granulocyte Absolute 0.03 K/mm3 (0.00-0.031); Immature Granulocyte Percent A 0.5 % (0-0.5); Lymphocytes Absolute Auto 1.06 K/mm3 (0.9-3.2); Lymphocytes Percent Auto 16.4 % (18.3-44.2); Mean Corpuscular HGB Conc 32.2 g/dl (32-36); Mean Corpuscular Hemoglobin 32.6 pg (26-34); Mean Corpuscular Volume 101.3 fl (80-100); Mean Platelet Volume 8.9 fl (7.4-10.4); Monocytes Absolute Auto 0.8 K/mm3 (0.1-0.6); Monocytes Percent Auto 11.9 % (2.6-8.5); Neutrophils Absolute Auto 4.4 K/mm3 (1.3-6.7); Neutrophils Percent Auto 68.1 % (45.5-73.1); Platelet Count Result 292 k/mm3 (150-375); Red Blood Count 3.74 M/mm3 (4.2-5.4); Red Cell Distribution Width 13.9 % (11.5-14.5); White Blood Count 6.5 K/mm3 (4.5-10.0)
[2024-03-08 06:31] LABS: Alanine Aminotransferase 7 U/L (6-35); Albumin Level 3.5 g/dL (3.5-5.1); Alkaline Phosphatase 92 U/L (38-126); Anion Gap 3 mmol/L (4-12); Aspartate Amino Transferase 22 U/L (14-36); Blood Urea Nitrogen 20 mg/dL (7-17); Calcium 8.9 mg/dL (8.4-10.2); Carbon Dioxide 29 mmol/L (22-30); Chloride 102 mmol/L (98-107); Estimated CRCL calculation 38 ml/min; Estimated Glomerular Filt Rate 60; Glucose 88 mg/dL (65-110); Potassium 4.3 mmol/L (3.4-5.0); Sodium 134 mmol/L (137-145)
[2024-03-08] MEDS: ISOSORBIDE MONONITRATE 10 MG TABLET PO (09:08)
[2024-03-08] MEDS: ASPIRIN 325 MG ENTERIC TABLET PO (09:08)
[2024-03-08] MEDS: FLUoxetine HCL 20 MG CAPSULE PO (09:08)
--- NOTE | 2024-03-08 11:22 | PM.DS ---
DS: Admitting Diagnosis Discharge Date 03/08/24 Admitting Diagnosis 1. Fall 2. Syncope 3. Neck pain; right lateral C2 base fracture 4. Left facial hematoma DS: Discharge Diagnosis Discharge Diagnosis (1) Closed cervical spine fracture: Code(s): S12.9XXA - Fracture of neck, unspecified, initial encounter Status: Acute (2) Unwitnessed fall: Code(s): R29.6 - Repeated falls Status: Acute (3) Hypothyroidism, unspecified: Code(s): E03.9 - Hypothyroidism, unspecified Status: Acute (4) Hypertension: Code(s): I10 - Essential (primary) hypertension Status: Acute (5) Dyslipidemia: Code(s): E78.5 - Hyperlipidemia, unspecified Status: Acute Plan This is an 83-year-old female who presented to the ED after syncopal episode on 03/03/2024 at home. No neurological deficit. Vitals were stable. Laboratory workup was unremarkable. EKG without concerning changes. Baseline troponin is negative. CT brain without acute intracranial abnormality. CT cervical spine showed right lateral C2 base fracture without significant displacement. CT thoracic spine without acute findings. On-call neurosurgery was consulted and awaiting that recommendations. On cervical collar. On [place] J collar non operative management. PT OT to see Per Neurosurgery: Neurologically intact As far as C2 fracture is concerned, this is non-operative.? Will need better fitting c-collar for next 4 weeks.? Will call orthotics for a [place] collar. Follow-up with [facility] in 4 weeks for AP/lateral/flexion-extension c-spine xrays and likely remove collar at that time. 03/06/24: Will likely DC tomorrow to [facility] 03/07/24: Will pursue SNF stay; daughter and not willing to accept her. Left parietal hematoma Syncope Fall Chronic A-fib. on Eliquis, metoprolol. Will hold Eliquis resume metoprolol. Echo with EF 45-50% significant valvular abnormality. Cardiology consulted. Due to falls discussion led to discontinuation of Eliquis and starting on aspirin. Metoprolol RVR Hypothyroidism. Dyslipidemia. Lung Ca. s/p XRT. follows with oncology. C TA done showed irregular consolidation left upper lobe suspicious for pneumonia. Neoplasm felt to be less likely given the overall morphology of the lesion. No clinical signs of symptoms of pneumonia. Known left upper lobe adenocarcinoma CKD3. Avoid nephrotoxins Recurrent depression. on Fluoxetine Hypothyroidism. On Levothyroxine Code status. Full Nutrition. NPO resume diet as no surgical plans VTE prophylaxis. Eliquis on hold; DS: Summary Hospital Course Reason for hospitalization: 1. Fall 2. Syncope 3. Cervical spine fracture Hospital Course: Chief Complaint: 1. Fall 2. Syncope 3. Neck pain Narrative: Quynh Cui is an 83yo F with a mHx history significant for lung Ca s/p XRT, dyslipidemia, Depression, A-fib While at home, she sustained an unwitnessed fall; her was mowing the lawn for about 20-30 minutes prior to discovering her on the floor with a swelling on the left side of her head; There were no dizziness, nausea, vomitnig, chest pain, headaches, visual disturbance, tingling/numbness of limbs prior to fall. She does not smoke/chew tobacco, drink alcohol or consume recreational drugs; her family hx is not contributory to the PC At the bedside, she is alert and interactive; not in painful distress; +Left parietal hematoma; she is in a cervical collar Significant findings: CBC and metabolic panel without concerning findings.? EKG without concerning changes and her baseline troponin is negative. CT brain?without acute intracranial abnormality. CT cervical spine?shows right lateral C2 base fracture without significant displacement. CT thoracic spine?without acute findings. Quynh Cui will be admitted, evaluated and managed for a right lateral C2 base fracture without significant displacement Per Neurosurgery:
[2024-03-08 12:14] LABS: SARS-CoV-2 RNA PCR Negative (Negative)
[2024-03-08 13:38] VITALS: PULSE 99
[2024-03-08 14:00] VITALS: BP 116/70; PULSE 92; RESP 16; TEMP 36.3; O2SAT 99
--- NOTE | 2024-03-08 15:00 | PC.NURSE ---
On 03/08/24, the POURER METAL, Chantale Sanchez, provided care and completed [facility] on [facility]. I have reviewed the [employer]'s documentation and agree with the findings.
== END 2024-03-08 15:00 | DRG 552 ==
LOC: ANHED 03-04 04:16 → ANHIMU 03-04 04:33 → ANH3MEDSUR 03-05 16:54
PROVIDERS: Physician Assistant; Admitting Provider Internal Medicine; Emergency Provider Emergency Medicine; PCP Family Medicine; Visit Provider Internal Medicine
DX: S12.101A Unspecified nondisplaced fracture of second cervical vertebra, initial encounter for closed fracture (principal); R55 Syncope and collapse; S00.83XA Contusion of other part of head, initial encounter; W19.XXXA Unspecified fall, initial encounter; R29.6 Repeated falls; E78.5 Hyperlipidemia, unspecified; F32.A Depression, unspecified; I48.0 Paroxysmal atrial fibrillation; E03.9 Hypothyroidism, unspecified; I12.9 Hypertensive chronic kidney disease with stage 1 through stage 4 chronic kidney disease, or unspecified chronic kidney disease; N18.30 Chronic kidney disease, stage 3 unspecified; I25.10 Atherosclerotic heart disease of native coronary artery without angina pectoris; K21.9 Gastro-esophageal reflux disease without esophagitis; M16.0 Bilateral primary osteoarthritis of hip; Z11.52 Encounter for screening for COVID-19; Z95.5 Presence of coronary angioplasty implant and graft; Z90.710 Acquired absence of both cervix and uterus; Z85.118 Personal history of other malignant neoplasm of bronchus and lung; Z79.01 Long term (current) use of anticoagulants
CPT/HCPCS: 36415; 70450; 71045; 71275; 72125; 72128; 80053; 84484; 85025; 85380; 85610; 85730; 87635; 93005; 93306; 94640; 97110; 97116; 97161; 97166; 97530; 99285; A9270; L0140; Q9967

== ENCOUNTER 2024-05-23 13:57 | Outpatient (CLI) | payer MEDICARE, SELFPAY ==
--- NOTE | ~2024-05-23 | CT_ITS ---
CT Scan of the Chest without Contrast: Clinical Indication: Pneumonia Technique: Contiguous sections were acquired throughout the chest without intravenous contrast. Dose reduction technique was used on this scan by utilizing automated exposure control and iterative recon struction technique. The dose-length product (DLP) was 125.90 mGy-cm. COMPARISON: 03/04/2024 Findings: There is no evidence of any significant mediastinal, hilar or axillary lymphadenopathy. Extensive cor onary artery calcifications are present. No pericardial effusion. Small left pleural effusion present. No right pleural effusion. There is stable irregular consolidation at the lateral left upper lobe. Stable additional consolidati ve change in the superior segment left lower lobe along the fissure. Right lung clear. Images through the upper abdomen reveal no abnormalities. Impression: Stable irregular consolidation of the lateral left upper lobe and in the superior segment left lower lobe. Findings could reflect chronic pneumonia, chronic atelectatic change or scarring, or possibly p ostradiation or other post therapy change. Clinical correlation required. Stable small left pleural effusion. Reviewed, dictated and finalized at [facility]. Impression: Stable irregular consolidation of the lateral left upper lobe and in the superi or segment left lower lobe. Findings could reflect chronic pneumonia, chronic a telectatic change or scarring, or possibly postradiation or other post therapy change. Clinical correlation required. Stable small left pleural effusion.
== END 2024-05-23 13:58 | disposition home or self-care (01) ==
PROVIDERS: PCP Family Medicine; Visit Provider Physician Assistant
DX: R93.89 Abnormal findings on diagnostic imaging of other specified body structures (principal); J18.1 Lobar pneumonia, unspecified organism; J90 Pleural effusion, not elsewhere classified
CPT/HCPCS: 71250

== ENCOUNTER 2024-05-31 09:43 | Outpatient (CLI) | payer MEDICARE, SELFPAY ==
--- NOTE | ~2024-05-31 | XR_ITS ---
[id number] Ordering provider: Albertina White MD History: . S12.191A - Other nondisplaced fracture of second cervical... . Comparison: July 23, 2013 FINDINGS: VERTEBRAL BODIES: Minimal anterolisthesis at the level of C3-C4. Osteopenia of the bones. C7 is not w ell demonstrated on the lateral view. DISK SPACES: Well maintained. Multilevel facet joint disease. Multilevel uncovertebral joint osteoart hritic changes PARASPINOUS SOFT TISSUES: No prevertebral soft tissue swelling. IMPRESSION: No definite acute osseous abnormality cervical spine. Reviewed, dictated and finalized at location A.
== END 2024-05-31 09:44 ==
LOC: MICIMG 09:44
PROVIDERS: PCP Family Medicine; Visit Provider Neurological Surgery
DX: S12.191A Other nondisplaced fracture of second cervical vertebra, initial encounter for closed fracture (principal)
CPT/HCPCS: 72040

== ENCOUNTER 2024-06-06 09:52 | Outpatient (CLI) | payer MEDICARE, SELFPAY ==
--- NOTE | ~2024-06-06 | XR_ITS ---
EXAMINATION: XR cervical spine 4-5V DATE: 06/06/2024 10:24 INDICATION: Fracture of neck, unspecified, initial encounter. TECHNIQUE: 4 views of cervical spine including flexion and extension views were obtained. COMPARISON: Cervical spine radiographs 05/31/2024, CT cervical spine 03/04/2024 FINDINGS: There is mild kyphosis of lower cervical spine. The cervical spine is hypomobile with flexi on and extension. There is mild chronic anterior wedging of C6 vertebral body. The lower cervical spi ne is not well visualized on the lateral view. There is moderately decreased disc height at C3-C4, mi ldly decreased disc height at C5-C6, and moderately decreased disc height at C6-C7. There is multilev el facet joint osteoarthritis, severe at several levels. No central canal stenosis or prevertebral so ft tissue swelling. IMPRESSION: 1. No visible fracture. 2. Moderate cervical spondylosis. Reviewed, dictated and finalized at location A.
== END 2024-06-06 09:53 | disposition home or self-care (01) ==
PROVIDERS: PCP Family Medicine; Visit Provider Neurological Surgery
DX: S12.9XXA Fracture of neck, unspecified, initial encounter (principal); X58.XXXA Exposure to other specified factors, initial encounter; M47.892 Other spondylosis, cervical region
CPT/HCPCS: 72050

== ENCOUNTER 2024-10-17 14:54 | Outpatient (CLI) | payer MEDICARE, SELFPAY ==
--- NOTE | ~2024-10-17 | XR_ITS ---
[id number] Ordering provider: Chantale Elliott PA-C History: . R07.81 - Pleurodynia . Comparison: None. FINDINGS: BONES: Fracture of the left third and fourth ribs is noted. Fracture of the left seventh and eighth ribs anteriorly is not excluded. Clinical correlation advised . LEFT LUNG: Atelectasis in the left lower lobe with effusion is noted. Focal atelectasis or scarring in the left upper lobe is noted. Follow-up advised. No pneumothorax. SOFT TISSUES: Normal. IMPRESSION: Multiple left rib fractures. Left basilar atelectasis versus pneumonia with pleural effusion. Focal area of opacification the left upper lobe which may be scarring but nodule in the area cannot b e excluded. 3 months follow-up advised. Reviewed, dictated and finalized at location A. 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 Left basilar atelectasis versus pneumonia with pleural effusion. Focal area of opacification the left upper lobe which may be scarring but nodul e in the area cannot be excluded. 3 months follow-up advised.
== END 2024-10-17 14:55 | disposition home or self-care (01) ==
PROVIDERS: PCP Family Medicine; Visit Provider Physician Assistant Medical
DX: S22.42XA Multiple fractures of ribs, left side, initial encounter for closed fracture (principal); R91.8 Other nonspecific abnormal finding of lung field; X58.XXXA Exposure to other specified factors, initial encounter
CPT/HCPCS: 71101

== ENCOUNTER 2024-11-19 12:06 | Outpatient (CLI) | payer MEDICARE, SELFPAY ==
--- NOTE | ~2024-11-19 | XR_ITS ---
EXAMINATION: XR ribs LT 2V w CXR 2V DATE: 11/19/2024 12:28 INDICATION: Pleurodynia. TECHNIQUE: Frontal and lateral views of the chest and 2 views on 3 radiographs of the left ribs were obtained. COMPARISON: Left rib radiographs 10/17/2024, Chest single view 03/04/2024, chest CT 05/23/2024 FINDINGS: CHEST TWO VIEWS: There is a moderate-sized left pleural effusion. There are airspace opacities at lef t lung base. There are worsened airspace opacities in left upper lung zone. No pneumothorax. The hear t size is normal. LEFT RIBS: There is an old healed fracture of right fourth rib. There are acute fractures of left thi rd and fourth ribs. There are multiple old healed left lower rib fractures. IMPRESSION: 1. Acute fractures of left third and fourth ribs. 2. Worsened airspace opacities in left upper lung zone, consistent with radiation pneumonitis. 3. Worsened moderate-sized left pleural effusion. 4. Worsened airspace opacities at left lung base, likely atelectasis. Reviewed, dictated and finalized at location A. E FURNACE OPERATOR IMPRESSION: 1. Acute fractures of left third and fourth ribs. 2. Worsened airspace opacities in left upper lung zone, consistent with radiati on pneumonitis. 3. Worsened moderate-sized left pleural effusion. 4. Worsened airspace opacities at left lung base, likely atelectasis.
--- OUTSIDE RECORDS SUMMARY | 2024-11-19 12:19 | XMS_ITS | Referral Summary ---
Author Organization [facility] [address] Address [address] [place] [address] Care Team Providers Care Performing Arts [employer] Manager Name Role Phone Peter Iqbal MD Primary Care Provider Amrik Suresh MD PhD Unavailable [phone] Jody Gold MD Unavailable [phone] Encounters Date Type Department Care Team Description 09/16/[address] [facility] 2 Radiation Oncology [address] [place] [id number] Mali Mccabe PA 09/09/2024 10:06 AM [employer] - 09/09/2024 11:59 PM [employer] Hospital Encounter [facility] [address] [place] [id number] Malignant neoplasm of upper lobe of left lung (HCC) Discharge Disposition: Discharge to home or self care 09/09/2024 11:00 AM [employer] Office Visit [facility] 2 Radiation Oncology [address] [place] [id number] Mali Mccabe PA Malignant neoplasm of upper lobe of left lung (HCC) (Primary Dx); Personal history of radiation therapy from Last 3 Months Allergies Active Allergy Reactions Criticality Noted Date Comments Cefadroxil Unknown Low 07/03/2017 Cephalexin Unknown 09/19/2023 Sulfa (Sulfonamide Antibiotics) Hives Medium 10/0 02/2018 Medications nitroglycerin (NITROSTAT) 0.[address] 1 tablet by sublingual route at the 1st sign of attack; may repeat every 5 min until relief; if pain persists after 3 tablets in 15 min, prompt medical attention is recommended 30 1 7 Active levothyroxine (SYNTHROID) 75 mcg tablet take 1 tablet by oral route every day 0 0 7 Active polyethylene glycol (MIRALAX) 17 gram/dose powder Take 17 g by mouth daily Active atorvastatin (LIPITOR) 20 mg tablet Take 1 tablet (20 mg total) by mouth daily. 30 tablet 11 7 Active clopidogrel (PLAVIX) 75 mg tablet Take one tablet daily. 30 tablet 7 Active Additional Information Patient not taking.Reported on 05/17/2023 metoprolol (LOPRESSOR) 25 mg tablet Take 1/4 tablet twice daily 30 tablet 11 7 Active apixaban (ELIQUIS) 5 mg tablet Take 1 tablet (5 mg total) by mouth 2 (two) times a day. 60 tablet 8 Active FLUoxetine (FLUoxetine) 10 mg capsule Take 1 tablet/capsule (10 mg total) by mouth daily TAKE 1 TABLET DAILY. Active furosemide (LASIX) 20 mg tablet Take 1 tablet (20 mg total) by mouth daily Active isosorbide mononitrate (ISMO) 10 mg tablet Take 1 tablet (10 mg total) by mouth daily Active albuterol HFA (PROVENTIL HFA,VENTOLIN HFA,PROAIR HFA) 90 mcg/actuation inhaler Inhale 2 puffs every 6 (six) hours as needed for wheezing Active traMADoL (ULTRAM) 50 mg tablet Take by mouth every 8 (eight) hours as needed 3 Active FLUoxetine (PROzac) 20 mg capsule TAKE 1 CAPSULE BY MOUTH DAILY WITH FLUOXETINE 10 MG TO EQUAL 30 MG 3 Active Active Problems Problem Noted Date Diagnosed Date Personal history of radiation therapy 07/11/2023 Malignant neoplasm of upper lobe of left lung Cancer Staging:Clinical stage from 05/10/2023:Stage IA2(cT1b, cN0, cM0) - Signed by Jody Gold MD on 05/10/2023 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) 07/14/2017 Atrial fibrillation ([facility]) 07/14/2017 History of percutaneous coronary intervention Presence of stent in coronary artery 03/10/2017 Overview (03/17/2017): History of heart artery stent Chronic kidney disease, stage 3 (moderate) 01/27 Overview (03/10/2017): CKD (chronic kidney disease) stage 3, GFR 30-59 ml/min Abnormal cardiovascular stress test 01/27/2017 Overview (03/10/2017): Positive cardiac stress test Essential (primary) hypertension 01/27/2017 Overview (03/10/2017): Essential hypertension Resolved Problems Problem Noted Date Diagnosed Date Resolved Date Chest pain 01/27/2017 06/30/2017 Overview (03/10/2017): Chest pain in adult Social History Tobacco Use Types Packs/Day Years Used Date Smoking Tobacco: Never Smokeless Tobacco: Never Tobacco Cessation:Counseling Given: Not Answered Alcohol Use Standard Drinks/Week Comments No 0 (1 standard drink = 0.6 oz pur e alcohol) AUDIT-C Answer Date Recorded Q1: How often do you have a drink containing alc ohol? Never 05/17/2023 Average Number of Drinks Not on file 023 Frequency of Binge Drinking Not on file 11/2022 Comments Unknown Sex and Gender Information Value Date Recorded Sex Assigned at Not on file Legal Sex Female 12:46 PM [employer] Gender Identity Not on file Sexual Orientation Not on file Last Filed Vital Signs Vital Sign Reading Time Taken Comments Blood Pressure 109/79 09/09/2024 10:43 AM [employer] Pulse 70 09/09/2024 10:43 AM [employer] Temperature 36.7 ??C (98.1 ??F) 04/25/2023 3:49 PM CD T Respiratory Rate 18 04/25/2023 3:49 PM CDT Oxygen Saturation 96% 09/09/2024 10:43 AM [employer] Inhaled Oxygen Concentration - - Weight 59 kg (130 lb) 09/09/2024 10:43 AM [employer] Height 156.2 cm (5' 1.5 ) 04/25/2023 3:49 PM CDT Body Mass Index 24.17 04/25/2023 3:49 PM CDT Plan of Treatment Not on file Procedures Procedure Name Priority Date/Time Associated Diagnosis Comments CT CHEST WO CONTRAST Schedule Routine, Read Routine (OP Routine) 09/09/2024 10:18 AM [employer] Malignant neoplasm of upper lobe of left lung (HCC) from Last 3 Months Results * CT Chest WO Contrast (09/09/2024 10:18 AM [employer]) Anatomical Region Laterality Modality Body N/A Computed Tomogra phy 09/13/2024 3:52 PM [employer] Narrative 09/13/2024 4:04 PM [employer] EXAM DESCRIPTION: ?? CT CHEST WO CONTRAST REASON FOR STUDY: ?? Non-small cell lung cancer (NSCLC. ??Follow-up. TECHNIQUE: CT scan of the chest performed without intravenous contrast using helical scanning technique. Reconstructed coronal and sagittal MPR images reviewed. ??All images stored on PACS. ??Automated exposure control was used as a dose optimization technique for this examination. COMPARISON: ?? CT chest 05/23/2024, 12/19/2023 FINDINGS: The sensitivity for detection of solid visceral lesions is diminished without the use of intravenous contrast. LUNGS: ?? Bandlike consolidation lateral left upper lobe measuring 2.5 x 1.3 cm (image 29) is grossly unchanged when compared to the prior study. ??There are surrounding bands of soft tissue which are unchanged and may represent posttreatment change. ??There is thickening of the adjacent pleura which is unchanged. ??Noncalcified 4 mm nodule in the lateral right upper lobe (image 25) is unchanged. PLEURAE: ?? Small left pleural effusion is unchanged. ??Fluid along the left major fissure is unchanged. ??No right pleural effusion. ??There is no pneumothorax. MEDIASTINUM/MARILEE: ?? No mediastinal or hilar lymphadenopathy. ? HEART: ?? Normal in size with no pericardial effusion. CORONARY ARTERY CALCIFICATION: ??Severe VASCULATURE: ?? No thoracic aortic aneurysm. AXILLAE: ?? No lymphadenopathy. CHEST WALL: ?? No masses. ??No subcutaneous air. HARDWARE/LINES/TUBES: ?? None. UPPER ABDOMEN: ?? No significant abnormality. MUSCULOSKELETAL: ?? Moderate thoracic spondylosis. OTHER: ?? No other significant abnormality. ?? IMPRESSION: Bandlike consolidation in the lateral left upper lobe is grossly unchanged when compared to the prior study. There are surrounding bands of soft tissue which are unchanged and favored to represent posttreatment change. ??Continued follow-up is recommended. Small left pleural effusion is unchanged. Noncalcified 4 mm nodule in the lateral right upper lobe is unchanged. No new lymphadenopathy. THIS IS AN ELECTRONICALLY VERIFIED FINAL REPORT 09/13/2024 4:04 PM - Electronically signed by ??Tim Murphy M.D. LB: LB D: ??09/13/2024 4:04 PM T: ??09/13/2024 4:04 PM Report ID: [id number] Reading Location: ??[id number] Procedure Note Tim Murphy MD - 09/13/2024 EXAM DESCRIPTION: CT CHEST WO CONTRAST REASON FOR STUDY: Non-small cell lung cancer (NSCLC. Follow-up. TECHNIQUE: CT scan of the chest performed without intravenous contrastusing helical scanning technique. Reconstructed coronal and sagittal MPR images reviewed. All images stored on PACS. Automated exposure control was usedas a dose optimization technique for this examination. COMPARISON: CT chest 05/23/2024, 12/19/2023 FINDINGS: The sensitivity for detection of solid visceral lesions is diminishedwithout the use of intravenous contrast. LUNGS: Bandlike consolidation lateral left upper lobe measuring 2.5 x1.3 cm (image 29) is grossly unchanged when compared to the prior study. Thereare surrounding bands of soft tissue which are unchanged and may represent posttreatment change. There is thickening of the adjacent pleura which is unchanged. Noncalcified 4 mm nodule in the lateral right upper lobe(image 25) is unchanged. PLEURAE: Small left pleural effusion is unchanged. Fluid along the left major fissure is unchanged. No right pleural effusion. There is no pneumothorax. MEDIASTINUM/MARILEE: No mediastinal or hilar lymphadenopathy. HEART: Normal in size with no pericardial effusion. CORONARY ARTERY CALCIFICATION: Severe VASCULATURE: No thoracic aortic aneurysm. AXILLAE: No lymphadenopathy. CHEST WALL: No masses. No subcutaneous air. HARDWARE/LINES/TUBES: None. UPPER ABDOMEN: No significant abnormality. MUSCULOSKELETAL: Moderate thoracic spondylosis. OTHER: No other significant abnormality. IMPRESSION: Bandlike consolidation in the lateral left upper lobe is grosslyunchanged when compared to the prior study. There are surrounding bands of softtissue which are unchanged and favored to represent posttreatment change.Continued follow-up is recommended. Small left pleural effusion is unchanged. Noncalcified 4 mm nodule in the lateral right upper lobe is unchanged. No new lymphadenopathy. THIS IS AN ELECTRONICALLY VERIFIED FINAL REPORT 09/13/2024 4:04 PM - Electronically signed by Tim Murphy M.D. LB: CARLOS A Report ID: [id number] Reading Location: [place] [address] [address] PROCEDURES Final Res ult from Last 3 Months Insurance [employer] [facility] [place] MEDICARE SOLUT[employer] [facility] Address: [address] [address] [place] [address] MEDICARE SOLUTIONS Member Subscriber Plan / Payer (Ef fective 2022-Present) Name:Quynh Cui Relation to Subscriber:Self Name:Quynh Cui Payer ID:[id number] (NAIC) Type:UHC MEDICARE Address: [place] [phone] MEDICARE SOLUTIONS [facility] MEDICARE Address: [place] [address] Care [address] Manager Relationship Specialty Start Date End Date Peter Iqbal MD [address] [facility] [address] [facility] [address] [place] [address] PCP - General 01/13/17 Amrik Suresh MD PhD [address] [place] [address] [address] [place] [address] Medical Oncologist Medical Oncology 05/10/23 Jody Gold MD [address] [place] [id number] Radiation Oncologist Radiation Oncology 05/27/24
--- OUTSIDE RECORDS SUMMARY | 2024-11-19 12:19 | XMS_ITS | Clinical Summary ---
Author Organization [facility] [address] [facility] [address] Address [address] [place] [address] Care Team Providers Care Process Control Programmer Name Role Phone Peter Iqbal MD Primary Care Provider Amrik Suresh MD PhD Unavailable Jody Gold MD Unavailable [phone] Allergies Active Allergy Reactions Criticality Noted Date Comments Cefadroxil Unknown Low 07/03/2017 Cephalexin Unknown 09/19/2023 Sulfa (Sulfonamide Antibiotics) Hives Medium 0 02/2018 Medications nitroglycerin (NITROSTAT) 0.4 mg SL [...] tablet Take one tablet daily. 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 Medical Office Building 2 Radiation Oncology [address] [place] [address] Mali Mccabe PA 09/09/2024 11:00 AM ELEMENT BURNER Office Visit [facility] Medical Office Building 2 Radiation Oncology [address] [place] [address] Mali Mccabe, PA Malignant neoplasm of upper lobe of left lung (HCC) (Primary Dx); Personal history of radiation therapy 09/09/2024 10:06 AM ELEMENT BURNER - 09/09/2024 11:59 PM ELEMENT BURNER Hospital Encounter [facility] Medical Office Building [address] [place] [address] Malignant neoplasm of upper lobe of left lung (HCC) Discharge Disposition: Discharge to home or self care from Last 3 Months Surgical History Surgery Date Site/Laterality Comments TOTAL ABDOMINAL HYSTERECTOMY Hysterectomy, total FINGER AMPUTATION Right middle finger digit amp CHOLECYSTECTOMY Medical History Medical History Date Comments Arthritis Arthritis Hx Other Medical cataracts Anemia Anemia Hx Other Medical diverticulitis Hypertension Hypertension Gastroesophageal reflux disease GERD Disease of thyroid gland Thyroid disease Lung cancer (HCC) Hypercholesteremia Family History Medical History Relation Name Comments Other Brother 2 Alive and well; Other Father Perforated ulce r; Cause of : Perforated ulcer Breast cancer Maternal Grandmother Uterine cancer Maternal Grandmother Cancer Mother Cancer, unknown ; Pancreatic cancer Mother Heart disease Other 1 Family history of Cardiovascular disease; Diabetes Other 2 Family history of Diabetes mellitus; Hyperlipidemia Other 3 Family histor y of Hyperlipidemia; Hypertension Other 4 Family history of Hypertension; Lung cancer Sister 1 Other Sister 2 Alive and well; Relation Name Status Comments Brother 1 Alive Brother 2 Father (Age 55) Maternal Grandmother Mother Other 1 Other 2 Other 3 Other 4 Sister 1 Alive Sister 2 Social History Tobacco Use Types Packs/Day Years [...] on file Legal Sex Female 12:46 PM ELEMENT BURNER Gender Identity Not on file Sexual Orientation Not on file Obstetrics History Last Filed Vital Signs Vital Sign Reading Time Taken Comments Blood Pressure 109/79 09/09/2024 10:43 AM ELEMENT BURNER Pulse 70 09/09/2024 10:43 AM ELEMENT BURNER Temperature 36.7 ??C (98.1 ??F) 04/25/2023 3:49 PM CD T Respiratory Rate 18 04/25/2023 3:49 PM CDT Oxygen Saturation 96% 09/09/2024 10:43 AM ELEMENT BURNER Inhaled Oxygen Concentration - - Weight 59 kg (130 lb) 09/09/2024 10:43 AM ELEMENT BURNER Height 156.2 cm (5' 1.5 ) 04/25/2023 3:49 PM CDT Body Mass Index 24.17 04/25/2023 3:49 PM CDT Plan of Treatment Health Maintenance Due Date Last Done Comments Depression Screening 1940 Fall Risk Assessment 1939 Osteoporosis Screening-Bone Density Scan 1939 DTaP/Tdap/Td Vaccine (1 - Tdap) 1950 Zoster Vaccine (1 of 2) 1989 Well Visit 65+ 2004 Pneumococcal vaccine 65+ (2 of 2 - PPSV23 or PCV20) 07/21/2021 07/21/2020, 06/16/2015 Covid-19 Vaccine (6 - 2023-2 5 season) 2024 08/22/2023, 07/14/2022, 03/07/2022, Additional history exists Influenza Vaccine Completed 08/13/2024, , 07/14/2022, Additional history exists Procedures Procedure Name Priority Date/Time Associated Diagnosis Comments CT CHEST WO CONTRAST Schedule Routine, Read Routine (OP Routine) 09/09/2024 10:18 AM ELEMENT BURNER Malignant neoplasm of upper lobe of left lung (HCC) from Last 3 Months Results * CT Chest WO Contrast (09/09/2024 10:18 AM ELEMENT BURNER) Anatomical Region Laterality Modality Body N/A Computed Tomogra phy 09/13/2024 3:52 PM ELEMENT BURNER Narrative 09/13/2024 4:04 PM ELEMENT BURNER EXAM DESCRIPTION: ?? CT CHEST WO CONTRAST [...] Electronically signed by ??Tim Murphy M.D. LB: CARLOS A D: ??09/13/2024 4:04 PM T: ??09/13/2024 4:04 PM Report ID: [id number] Reading Location: ??[id number] Procedure Note Tim Murphy MD - 09/13/2024 [...] Murphy M.D. LB: CARLOS A Report ID: [id number] Reading Location: [place] [address] PROCEDURES Final Res ult from Last 3 Months Insurance [employer] [facility] MEDICARE [facility] Address: [address] [address] [place] [address] MEDICARE [facility] Address: [address] [address] [place] [address] [employer]IC[employer] [facility] Address: [address] [address] [place] [address] Care Teams Process Control Programmer Relationship Specialty Start Date End Date Peter Iqbal MD [address] [facility] 162 [facility] 120 [place] [address] PCP - General 01/13/17 Amrik Suresh MD PhD [address] [place] [address] [address] [place] [address] Medical Oncologist Medical Oncology 05/10/23 Jody Gold MD [address] [place] [address] 160 [place] [address] Radiation Oncologist Radiation Oncology 05/27/24
--- OUTSIDE RECORDS SUMMARY | 2024-11-19 12:19 | XMS_ITS | Clinical Summary ---
Author Organization [facility]he[facility]ana Address [address] [address] Phone Care Team Providers Care Mine Safety Director Name Role Phone Peter Iqbal MD Primary Care Provider Allergies Active Allergy Reactions Criticality Noted Date Comments Cefadroxil 05/14/2021 Cephalosporins Rash Low 05/18/2019 Sulfa Antibiotics Hives Medium 07/20/2018 Medications Medication Sig Dispensed Refills Start Date End Date Status levothyroxine (SYNTHROID, LEVOTHROID) 75 MCG tablet 05/25/2013 Active Psyllium (METAMUCIL) 48.57 % powder as needed 0 05/23/2018 Active acyclovir (ZOVIRAX) 5 % ointment acyclovir 5 % topical ointment Active apixaban (ELIQUIS) 5 MG tablet Take 5 mg by mouth 2 times daily 06/21/2018 Active atorvastatin (LIPITOR) 20 MG tablet TK 1 T PO QD 5 03/10/2019 Active metoprolol tartrate (LOPRESSOR) 25 MG tablet TK 1/4 T PO BID 0 03/19/2019 Active FLUoxetine (PROzac) 20 MG capsule TK 1 C PO D 04/08/2020 Active furosemide (LASIX) 20 MG tablet furosemide 20 mg tablet Active HYDROcodone-acetamino phen (NORCO) 5-325 MG per tablet TK 1 T PO Q 8 H PRF PAIN 03/06/2020 Active isosorbide mononitrate (ISMO,MONOKET) 10 MG tablet TK 1 T PO QD 05/13/2020 Active ranolazine (Ranexa) 500 MG 12 hr tablet Ranexa 500 mg tablet,extended release Active Cholecalciferol (VITAMIN D3) 50 MCG (2000 UT) tablet Take by mouth Activ e albuterol HFA (PROVENTIL HFA) 108 (90 Base) MCG/ACT inhaler INHALE 1 PUFF BY MOUTH EVERY 4 HOURS NEEDED FOR SHORTNESS OF BREATH OR WHEEZING 05/11/2022 Active Active Problems Problem Noted Date Diagnosed Date Urinary incontinence 05/18/2019 Atrial fibrillation 07/14/2017 Hemiplegia 07/14/2017 Stented coronary artery 03/10/2017 Overview (05/18/2019): History of heart artery stent Essential (primary) hypertension 01/27/2017 Overview (05/18/2019): Essential hypertension Other and unspecified hyperlipidemia 05/25/2016 Overview (12/29/2018): Converted unresolved ICD9, potential mismatch. Hypertensive chronic kidney disease with stage 1 through stage 4 chronic kidney disease, or unspecified chronic kidney disease 06/02/2014 Stage 3a chronic kidney disease 05/27/2013 Immunizations Name Administration Dates Next Due Influenza Vac Tissue-cultured Subunit Quadrivale nt 07/29/2019 Pneumococcal Conjugate 06/16/2015 Family History Medical History Relation Comments Diabetes mellitus Mother Kidney disease Neg Hx Relation Status Comments Mother Social History Tobacco Use Types Packs/Day Years Used Date Smoking Tobacco: Never Smokeless Tobacco: Never Alcohol Use Standard Drinks/Week Comments Not Currently 0 (1 standard drink = 0.6 oz pur e alcohol) Sex and Gender Information Value Date Recorded Sex Assigned at Not on file Gender Identity Not on file Sexual Orientation Not on file Last Filed Vital Signs Vital Sign Reading Time Taken Comments Blood Pressure 102/70 05/18/2022 9:22 AM CDT Pulse 100 05/18/2022 9:22 AM CDT Temperature 36.1 ??C (96.9 ??F) 05/18/2022 9:22 AM CD T Respiratory Rate - - Oxygen Saturation - - Inhaled Oxygen Concentration - - Weight 78.9 kg (174 lb) 05/18/2022 9:22 AM CDT Height 162.6 cm (5' 4 ) 05/18/2022 9:22 AM CDT Body Mass Index 29.87 05/18/2022 9:22 AM CDT Plan of Treatment Health Maintenance Due Date Last Done Comments Pneumococcal PPSV23/PCV13 65 + Years / Low and Medium Risk (1 of 4 - PCV) 2004 Influenza Vaccine (#1) 2024 Care Teams Mine Safety Director Relationship Specialty Start Date End Date Peter Iqbal MD [address] [facility] 162 [address] [place] [address] PCP - General Internal Medicine 05/22/19
--- OUTSIDE RECORDS SUMMARY | 2024-11-19 12:19 | XMS_ITS | Encounter Summary ---
Author Organization [facility] Address [address] [facility] [address] [place] [address] Care Team Providers Care Shoe Salesperson Name Role Phone Peter Iqbal MD Primary Care Provider Jody Gold MD Unavailable [phone] Amrik Suresh MD PhD Unavailable [phone] Jody Gold MD Unavailable [phone] Encounter Details Date Type Department Care Team (Late st Contact Info) Description 02/02/2017 Orders Only [facility] ProviderTalat MD [address] [place] [address] Social History Tobacco Use Types Packs/Day Years Used Date Smoking Tobacco: Never Alcohol Use Standard Drinks/Week Comments No 0 (1 standard drink = 0.6 oz pur e alcohol) Comments Unknown Sex and Gender Information Value Date Recorded Sex Assigned at Not on file 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 Historical Provider [facility] FELICITY MARIE Final Result documented in this encounter Visit Diagnoses Not on filedocumented in this encounter Care Teams Shoe Salesperson Relationship Specialty Start Date End Date Peter Iqbal MD [address] [facility] 120 [place] [address] PCP - General 01/13/17 Jody Gold MD [address] [place] [address] Radiation Oncologist Radiation Oncology 05/10/23 Amrik Suresh MD PhD [facility]8 [facility] 180 [place], [place] [id number] Medical Oncologist Medical Oncology 05/10/23 Jody Gold MD [facility]8 [facility] 160 [place], [place] [id number] Radiation Oncologist Radiation Oncology 05/27/24 documented as of this encounter
--- OUTSIDE RECORDS SUMMARY | 2024-11-19 12:19 | XMS_ITS | Continuity of Care Document ---
Author Organization [facility] Address [address] [place] [address] [address] [place] [address] Phone Care Team Providers Care Lead Carpenter Name Role Phone Milagros Perez Unavailable Unavailable Procedures Procedure Date Eye Exam Established Pt Advance Directives Directive Yes / No Effective Date File Name No Information Encounters Encounter Description Practice Location Reason(s) For Visit Diagnoses Date Provider Providers Copied on Encounter [facility], [address] [place] [address] [address], [place], [place], [id number], [place] tel:[phone] [facility] No Information 1-[address] , [address], [place], [address], [place]. tel:[phone] Family History Family Member Type Diagnosis Age At Onset No Information Payers Payer name Insurance type Covered libertarian ID Authoriza tion(s) Medicare [facility] [id number] Social History Type Description Quantity Date Captured [...]
--- OUTSIDE RECORDS SUMMARY | 2024-11-19 12:19 | XMS_ITS ---
Author Organization [facility] [address] [place] [address] Care Team Providers Care Cylinder Inspector Name Role Phone Peter Iqbal MD Primary Care Provider Amrik Suresh MD PhD Unavailable Jody Gold MD Unavailable [phone] Active Problems Problem Noted Date Diagnosed Date [...] (primary) hypertension 01/27/2017 Overview (03/10/2017): Essential hypertension Current Oncology Plans No current plan information found. Past Plans No past plan information found. Radiation Treatments * Plan Last Treated On Elapsed Days Fractions Treated Prescribed Fraction Dose Prescribed Total Dose SBRT L LUNG 06/07/2023 9 5 1,100 cGy 5,500 cG y Reference Point Last Treated On Elapsed Days Session Dose Total Dose SBRT L LUNG 06/07/2023 9 0 cGy 5,500 cGy Resolved Problems Problem Noted Date Diagnosed Date Resolved Date Chest pain 01/27/2017 06/30/2017 Overview (03/10/2017): Chest pain in adult
--- OUTSIDE RECORDS SUMMARY | 2024-11-19 12:19 | XMS_ITS | Encounter Summary ---
Author Organization [facility] Address [address] [facility] [address] [place] [address] Care Team Providers Care Quality Assurance Clerk Name Role Phone Peter Iqbal MD Primary Care Provider Peter Iqbal MD Primary Care Provider Jody Gold MD Unavailable [phone] Amrik Suresh MD PhD Unavailable [phone] Jody Gold MD Unavailable [phone] Encounter Details Date Type Department Care Team (Late st Contact Info) Description 01/06/2017 Orders Only [facility] ProviderTalat MD [address] [place] [address] Social History Tobacco Use Types Packs/Day Years Used Date Smoking Tobacco: Never Assessed Comments Unknown Sex and Gender Information Value Date Recorded Sex Assigned at Not on file Legal Sex Female 12:46 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 Historical Provider [facility] PROCE DURES Final Result * CARDIOLOGY REPORT (01/06/2017) Anatomical Region Laterality Modality Other Narrative 01/06/2017 Ordered by an unspecified provider. us Historical Provider [facility] PROCE DURES Final Result documented in this encounter Visit Diagnoses Not on filedocumented in this encounter Care Teams Quality Assurance Clerk Relationship Specialty Start Date End Date Peter Iqbal MD [address] [facility] [address] [address] PCP - General 01/13/17 Peter Iqbal MD [address] [address] PCP - General 11/28/11 01/12/17 Jody Gold MD [address] [address] Radiation Oncologist Radiation Oncology 05/10/23 Amrik Suresh MD PhD [address] [place] [address] Medical Oncologist Medical Oncology 05/10/23 Jody Gold MD [address] [place] [address] 160 [place] [address] Radiation Oncologist Radiation Oncology 05/27/24 documented as of this encounter
== END 2024-11-19 12:07 | disposition home or self-care (01) ==
PROVIDERS: PCP Family Medicine; Visit Provider Physician Assistant
DX: S29.011A Strain of muscle and tendon of front wall of thorax, initial encounter (principal); S22.42XA Multiple fractures of ribs, left side, initial encounter for closed fracture; R91.8 Other nonspecific abnormal finding of lung field; J90 Pleural effusion, not elsewhere classified; X58.XXXA Exposure to other specified factors, initial encounter
CPT/HCPCS: 71046; 71100

== ENCOUNTER 2025-06-20 07:52 | Outpatient (CLI) | payer MEDICARE, SELFPAY ==
--- OUTSIDE RECORDS SUMMARY | 2007-12-25 09:04 | XMS_ITS | Continuity of Care Document ---
Author Organization [facility] Address [address] [place] [address] [address] [place] [address] Phone Care Team Providers Care Burglar Alarm Installer Name Role Phone Milagros Perez Unavailable Unavailable Procedures Procedure Date Eye Exam Established Pt Advance Directives Directive Yes / No Effective Date File Name No Information Encounters Encounter Description Practice Location Reason(s) For Visit Diagnoses Date Provider Providers Copied on Encounter [facility], [id number] [place] [address] [address], [place], [place], [id number], [place] tel:[phone] [facility] No Information [address] , [address], [place], [address], [place]. tel:[phone] Family History Family Member Type Diagnosis Age At Onset No Information Payers Payer name Insurance type Covered democrat ID Authoriza tion(s) Medicare [facility] [id number] Social History Type Description Quantity Date Captured Comments Sex Female Smoking Status No Information Chief Complaint And Reason For Visit No Information Reason For Referral Reason For Referral No Information History Of Present Illness Encounter Date Complaint History Of Prese nt Illness No Information Functional Status Date Functional Assessmen t No Information Instructions Date Instruction Additional Infor mation No Information Assessments Type Assessment Date No Information Patient Care Teams Name Effective Dates (start - stop) Status Members No Information
--- OUTSIDE RECORDS SUMMARY | 2025-06-20 07:55 | XMS_ITS | Encounter Summary ---
Author Organization [facility] Address [address] [facility] [address] [place] [address] Care Team Providers Care Cone Classifier Tender Name Role Phone Peter Iqbal MD Primary Care Provider Peter Iqbal MD Primary Care Provider Jody Gold MD Unavailable [phone] Amrik Suresh MD PhD Unavailable [phone] Jody Gold MD Unavailable [phone] Encounter Details Date Type Department Care Team (Late st Contact Info) Description 01/06/2017 Orders Only [facility] ProviderTalat MD [address] [place] [address] Social History Tobacco Use Types Packs/Day Years Used Date Smoking Tobacco: Never Assessed Comments Unknown Sex and Gender Information Value Date Recorded Sex Assigned at Not on file 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 Gender Identity Not on file Sexual Orientation [...] on filedocumented in this encounter Care Teams Cone Classifier Tender Relationship Specialty Start Date End Date Peter Iqbal MD [address] [facility] [address] [address] PCP - General 01/13/17 Peter Iqbal MD [address] [address] PCP - General 11/28/11 01/12/17 Jody Gold MD [address] [address] Radiation Oncologist Radiation Oncology 05/10/23 Amrik Suresh MD PhD [address] [place] [address] Medical Oncologist Medical Oncology 05/10/23 Jody Gold MD [address] [place] [address] 160 [place] [address] Radiation Oncologist Radiation Oncology 05/27/24 documented as of this encounter
--- OUTSIDE RECORDS SUMMARY | 2025-06-20 07:55 | XMS_ITS | Patient Health Record ---
Author Organization [facility] Address [address] [place], [place] [address] Care Team Providers Care Certified Adapted Physical Educator Name Role Phone JODY Bass Unavailable Andrew Muñoz Unavailable Unavailable Reason For Referral No Information Plan Of Treatment No Information Insurance Providers Payer Name Payer Address Payer Phone Subscriber Number Group Number Insured Name Patient Relationship to Insured Coverage Start Date Coverage End Date Medicare Part B [place] [address] [place] [address] [id number] A OSIRIS COMBS Self - patient is the insured [facility] [address] [address] [place] [id number] OSIRIS COMBS Self - patient is the insured
--- OUTSIDE RECORDS SUMMARY | 2025-06-20 07:55 | XMS_ITS | Clinical Summary ---
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 Hemiplegia 07/14/2017 Atrial fibrillation 07/14/2017 History of percutaneous coronary intervention Presence [...] Encounters Date Type Department Care Team Description 04/01/2025 Orders Only [facility] Medical Office Building 2 Radiation Oncology [address] [place] [address] Mali Mccabe PA Malignant neoplasm of upper lobe of left lung (HCC) (Primary Dx) 03/28/2025 Telephone [facility] Medical Office Building 2 Radiation Oncology [address] [place] [address] Rebecca Grady MA from Last 3 Months Surgical History Surgery [...] on file 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 Gender Identity Not on file Sexual Orientation Not on file Obstetrics History Last Filed Vital Signs Vital Sign Reading Time Taken Comments Blood Pressure 128/84 03/17/2025 1:07 PM CDT Pulse 97 03/17/2025 1:07 PM CDT Temperature 36.7 C (98.1 F) 04/25/2023 3:49 PM CDT Respiratory Rate 18 04/25/2023 3:49 PM CDT Oxygen Saturation 99% 03/17/2025 1:07 PM CDT Inhaled Oxygen Concentration - - Weight 59.4 kg (131 lb) 03/17/2025 1:07 PM CDT Height 156.2 cm (5' 1.5) 04/25/2023 3:49 PM CDT Body Mass Index 24.35 04/25/2023 3:49 PM CDT Plan of Treatment Health Maintenance Due Date Last Done Comments Depression Screening 1940 Fall Risk Assessment 1940 Osteoporosis Screening-Bone Density Scan 1939 DTaP/Tdap/Td Vaccine (1 - Tdap) 1950 Zoster Vaccine (1 of 2) 1989 Well Visit 65+ 2004 Pneumococcal vaccine 65+ (2 of 2 - PCV20 or PCV21) 07/21/2021 07/21/2020, 06/16/2015 Covid-19 Vaccine (7 2023-2 5 season) 2025 11/29/2024, 08/22/2023, 07/14/2022, Additional history exists Influenza Vaccine (#1) 2025 , 08/22/2023, 07/14/2022, Additional history exists Hepatitis B Screening Completed 07/29/2019 Insurance [employer] LIFE INS [facility] MEDICARE ADVANTAGE MEDICARE ADVANTAGE Member Subscriber Plan / Payer (Ef fective 2022-Present) Name:Quynh Cui Relation to Subscriber:Self Name:Quynh Cui Payer ID:[id number] (NAIC) Type:UHC MEDICARE Address: [place] [id number] MEDICARE ADVANTAGE Member Subscriber Plan / Payer (Ef fective 2022-Present) Name:uQynh Cui Relation to Subscriber:Self Name:Quynh Cui Payer ID:[id number] (NAIC) Type:UHC MEDICARE Address: [place] [id number] [place] [id number] Care Teams Supervisor Model Making Relationship Specialty Start Date End Date Peter Iqbal MD [address] [place] [address] PCP - General 01/13/17 Amrik Suresh MD PhD [facility] 180 [place] [address] Medical Oncologist Medical Oncology 05/10/23 [place] [address] [place] [address] [address] [place], [place] [address] Radiation Oncologist Radiation Oncology 05/27/24
--- OUTSIDE RECORDS SUMMARY | 2025-06-20 07:55 | XMS_ITS ---
Author Organization [facility] [address] Address [address] [place] [address] Care Team Providers Care Counter Intelligence Technician Name Role Phone Peter Iqbal MD Primary Care Provider Amrik Suresh MD PhD Unavailable Jody Gold MD Unavailable [phone] Active Problems Problem Noted Date Diagnosed Date [...] hypertension 01/27/2017 Overview (03/10/2017): Essential hypertension Current Treatment and Therapy Plans No current plan information found. Past Treatment and Therapy Plans No past plan information found. Radiation Treatments * Course [id number]/29/2023 - 06/07/2023 Treatment Period Energy Fraction Dose Fractions Total Dose Plans Planned SBRT L LUNG 05/29/2023 - 06/07/2023 1,100 5 / 5,500 Reference Points Delivered SBRT L LUNG 05/29/2023 - 06/07/2023 5,500 Resolved Problems Problem Noted Date Diagnosed Date Resolved Date Chest pain 01/27/2017 06/30/2017 Overview (03/10/2017): Chest pain in adult
--- OUTSIDE RECORDS SUMMARY | 2025-06-20 07:55 | XMS_ITS | Encounter Summary ---
Author Organization [facility] Address [address] [facility] [address] [place] [id number] Care Team Providers Care Organizational Psychologist Name Role Phone Peter Iqbal MD Primary Care Provider Jody Gold MD Unavailable [phone] Amrik Suresh MD PhD Unavailable [phone] Jody Gold MD Unavailable [phone] Encounter Details Date Type Department Care Team (Late st Contact Info) Description 02/02/2017 Orders Only [facility] ProviderTalat MD [address] [place] [id number] Social History Tobacco Use Types Packs/Day Years Used Date Smoking Tobacco: Never Alcohol Use Standard Drinks/Week Comments No 0 (1 standard drink = 0.6 oz pur e alcohol) Comments Unknown Sex and Gender Information Value Date Recorded Sex Assigned at Not on file 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 Gender Identity Not on file Sexual Orientation [...] on filedocumented in this encounter Care Teams Organizational Psychologist Relationship Specialty Start Date End Date Peter Iqbal MD [address] [facility] [address] [place] [address] PCP - General 01/13/17 Jody Gold MD [address] [place] [address] Radiation Oncologist Radiation Oncology 05/10/23 Amrik Suresh MD PhD [facility] [facility] [address] [place], [place] [id number] Medical Oncologist Medical Oncology 05/10/23 Jody Gold MD [facility] [address] [place], [place] [id number] Radiation Oncologist Radiation Oncology 05/27/24 documented as of this encounter
--- OUTSIDE RECORDS SUMMARY | 2025-06-20 07:55 | XMS_ITS | Clinical Summary ---
Author Organization [facility] Address [address] [address] Phone Care Team Providers Care Beater Worker Helper Name Role Phone Peter Iqbal MD Primary Care Provider [phone] Allergies Active Allergy Reactions Criticality Noted Date Comments Cefadroxil 05/14/2021 Cephalosporins Rash Low 05/18/2019 Sulfa Antibiotics Hives Medium 07/20/2018 Medications levothyroxine (SYNTHROID, LEVOTHROID) 75 MCG tablet 3 Active Psyllium (METAMUCIL) 48.57 % powder as needed 0 8 Active acyclovir (ZOVIRAX) 5 % ointment acyclovir 5 % topical ointment Active apixaban (ELIQUIS) 5 MG tablet Take 5 mg by mouth 2 times daily 8 Active atorvastatin (LIPITOR) 20 MG tablet TK 1 T PO QD 5 9 Active metoprolol tartrate (LOPRESSOR) 25 MG tablet TK 1/4 T PO BID 0 9 Active FLUoxetine (PROzac) 20 MG capsule TK 1 C PO D 0 Active furosemide (LASIX) 20 MG tablet furosemide 20 mg tablet Active HYDROcodone-acet aminophen (NORCO) 5-325 MG per tablet TK 1 T PO Q 8 H PRF PAIN 0 Active isosorbide mononitrate (ISMO,MONOKET) 10 MG tablet TK 1 T PO QD 0 Active ranolazine (Ranexa) 500 MG 12 hr tablet Ranexa 500 mg tablet,extended release Active Cholecalciferol (VITAMIN D3) 50 MCG (1999) tablet Take by mouth Active albuterol HFA (PROVENTIL HFA) 108 (90 Base) MCG/ACT inhaler INHALE 1 PUFF BY MOUTH EVERY 4 HOURS NEEDED FOR SHORTNESS OF BREATH OR WHEEZING 2 Active Active Problems Problem Noted Date Diagnosed [...] Stage 3a chronic kidney disease 05/27/2013 Immunizations Immunization Administration Dates Next Due Influenza Vac Tissue-cultured [...] at Not on file Legal Sex Female 8:01 AM [facility] Gender Identity Not on file Sexual Orientation Not on file Last Filed Vital Signs Vital Sign Reading Time Taken Comments Blood Pressure 102/70 05/18/2022 9:22 AM CDT Pulse 100 05/18/2022 9:22 AM CDT Temperature 36.1 C (96.9 F) 05/18/2022 9:22 AM CDT Respiratory Rate - - Oxygen Saturation - - Inhaled Oxygen Concentration - - Weight 78.9 kg (174 lb) 05/18/2022 9:22 AM CDT Height 162.6 cm (5' 4) 05/18/2022 9:22 AM CDT Body Mass Index 29.87 05/18/2022 9:22 AM CDT Plan of Treatment Health Maintenance Due Date Last Done Comments Pneumococcal PPSV23/PCV13 65 + Years / Low and Medium Risk (1 of 2 - PCV) 1989 Influenza Vaccine (#1) 2025 Insurance MEDICARE [facility] Care Teams Beater Worker Helper Relationship Specialty Start Date End Date Peter Iqbal MD [address] [facility] [address] [place] [address] PCP - General Internal Medicine 05/22/19
--- NOTE | 2025-06-20 08:02 | ECHO_ITS ---
Patient Info Name: Quynh Cui Age: 84 years : 1940 Gender: Female Ht: 63 in Wt: 127 lbs BSA: 1.61 m2 HR: 84 bpm BP: 128 / 88 mmHg Heart Rhythm: Atrial Fibrillation Technical Quality: Good Exam Date: 06/20/2025 8:50 AM Patient Status: O Admit Date: 06/20/2025 Exam Type: CA echo doppler color flow Complete two-dimensional, color flow and Doppler transthoracic echocardiogram is performed. Linoleum Installer: Rose Mary Almanza Attending Provider: Geraldo Nobles DO Summary 1. Complete two-dimensional, color flow and Doppler transthoracic echocardiogram is performed. 2. Left ventricular chamber dimension is moderately enlarged. 3. Left ventricular systolic function is moderately globally reduced, estimated at 40-45. 4. The left ventricular diastolic function is normal. 5. E/e' 9 is minimally elevated. 6. Atrial fibrillation. 7. Right ventricular systolic function is mildly reduced and with abnormal TAPSE 1.4 cm. 8. Left atrial chamber dimension is moderately enlarged. 9. Right atrial chamber dimension is moderately enlarged. 10. There is mild aortic valve sclerosis. 11. There is moderate aortic valve regurgitation. 12. The mitral valve has mildly thickened leaflets. 13. There is severe mitral valve regurgitation. 14. There is mild tricuspid valve regurgitation. 15. No pulmonary hypertension, estimated pulmonary arterial systolic pressure is 33 mmHg. 16. There is trace pulmonic regurgitation. Left Ventricle E/e' 9 is minimally elevated. Left ventricular chamber dimension is moderately enlarged. Left ventricular systolic function is moderately globally reduced, estimated at 40-45. The left ventricular diastolic function is normal. Atrial fibrillation. Right Ventricle Right ventricular chamber dimension is normal. Right ventricular systolic function is mildly reduced and with abnormal TAPSE 1.4 cm. Left Atria Left atrial chamber dimension is moderately enlarged. Right Atria Right atrial chamber dimension is moderately enlarged. Aortic Valve The aortic valve is trileaflet. There is mild aortic valve sclerosis. There is no aortic valve stenosis. There is moderate aortic valve regurgitation. Pulmonic Valve There is trace pulmonic regurgitation. Mitral Valve The mitral valve has mildly thickened leaflets. There is no mitral valve stenosis. There is severe mitral valve regurgitation. Tricuspid Valve There is mild tricuspid valve regurgitation. No pulmonary hypertension, estimated pulmonary arterial systolic pressure is 33 mmHg. Pericardium/Pleural There is no pericardial effusion. Inferior Vena Cava Normal inferior vena cava with >50% collapse upon inspiration consistent with normal right atrial pressure, 5 mmHg. Aorta The aortic root size at the sinus of Valsalva is normal. Left Ventricular Outflow Tract Name Value Normal LVOT 2D LVOT Diameter 1.7 cm LVOT Doppler LVOT Peak Velocity 93 cm/s LVOT Peak Gradient 2 mmHg LVOT Mean Gradient 1 mmHg LVOT VTI 18 cm LVOT VTI/AV VTI Ratio 0.9 LVOT Stroke Volume 40 ml LVOT CO 6.4 l/min LVOT CI 4.0 l/min/m2 Pulmonic Valve Name Value Normal PV Doppler PV Peak Velocity 87 cm/s PV Peak Gradient 3 mmHg Mitral Valve Name Value Normal MV Diastolic Function MV E Peak Velocity 86 cm/s MV A Peak Velocity 3 cm/s MV E/A 25.7 MV Decel Time (PW) 247 ms MV Annular TDI MV E/e' (Septal) 10.7 MV E/e' (Lateral) 8.9 MV E/e' (Average) 9.8 Tricuspid Valve Name Value Normal TV Regurgitation Doppler TR Peak Velocity 265 cm/s TR Peak Gradient 28 mmHg Estimated PAP/RSVP RA Pressure 5 mmHg <=5 PA Systolic Pressure 33 mmHg <36 RV Systolic Pressure 33 mmHg <36 TV Annular TDI TV Lateral Guera s' Velocity 6.5 cm/s >=9.5 Aorta Name Value Normal Ascending Aorta Ao Root Diameter (MM) 3.1 cm Ao Root Diam Index (MM) 2.0 cm/m2 Aortic Valve Name Value Normal AV Doppler AV Peak Velocity 98 cm/s AV Peak Gradient 3 mmHg AV Mean Gradient 2 mmHg AV VTI 21 cm AV Area (Cont Eq VTI) 1.9 cm2 >=3.0 AV Area (Cont Eq Hiram) 2.1 cm2 AV DI (Hiram) 0.95 AV Regurgitation 2D LVOT Area 2.2 cm2 Ventricles Name Value Normal LV Dimensions 2D/MM IVS Diastolic Thickness (2D) 1.0 cm 0.6-1.0 LVID Diastole (2D) 4.5 cm 3.8-5.2 LVIW Diastolic Thickness (2D) 0.9 cm 0.6-0.9 LVID Systole (2D) 3.9 cm 2.2-3.5 LVOT Diameter 1.7 cm LV Mass (2D Cubed) 146.82 g 67.00-162.00 LV Mass Index (2D Cubed) 91 g/m2 43-95 Relative Wall Thickness (2D) 0.40 <=0.42 LV Fractional Shortening/Ejection Fraction 2D/MM LV Fractional Shortening (2D) 14 % 27-45 LV EF (2D Teichholz) 30 % LV Diastolic Volume (4C MOD) 53 ml LV EF (4C MOD) 30 % LV Diastolic Volume (2C MOD) 70 ml LV EF (2C MOD) 41 % LV Diastolic Volume (BP MOD) 67 ml 46-106 LV Diastolic Volume Index (BP MOD) 42 ml/m2 29-61 LV Systolic Volume (BP MOD) 43 ml 14-42 LV Systolic Volume Index (BP MOD) 27 ml/m2 8-24 LV EF (BP MOD) 35 % 54-74 LV Diastolic Length (4C) 6.0 cm LV Systolic Length (4C) 5.3 cm LV Stroke Volume (4C MOD) 16 ml Atria Name Value Normal LA Dimensions LA Dimension (MM) 4.0 cm 2.7-3.8 LA Volume (4C A-L) 50 ml LA Volume (BP A-L) 62 ml RA Dimensions RA Systolic Major Mccausland Length (4C) 4.8 cm 2.2-2.8 RA Area (4C) 16.8 cm2 <=18.0 Report Signatures
== END 2025-06-20 07:53 | disposition home or self-care (01) ==
PROVIDERS: PCP Family Medicine; Visit Provider Internal Medicine Cardiovascular Disease
DX: I51.9 Heart disease, unspecified (principal); I34.0 Nonrheumatic mitral (valve) insufficiency; I35.1 Nonrheumatic aortic (valve) insufficiency; I36.1 Nonrheumatic tricuspid (valve) insufficiency
CPT/HCPCS: 93306

== ENCOUNTER 2025-09-25 12:31 | Outpatient (CLI) | payer MEDICARE, SELFPAY ==
--- NOTE | ~2025-09-25 | CT_ITS ---
EXAMINATION:CT diagnostic chest wo con DATE: 09/25/2025 12:57 INDICATION: Lung cancer TECHNIQUE: Computed tomography (CT) of the chest was performed without intravenous contrast. The dose-length product (DLP) was 139.07 mGy-cm. COMPARISON: May 23, 2024 FINDINGS: Irregular consolidative/fibrotic appearing changes in the left upper lobe slightly more consolidated appearing not clearly changed in size or volume. Small chronic left effusion also unchanged. Compare sagittal image 92 series 601 on today's exam to sagittal image 87 series 601 on the previous exam. No new nodules lesions or masses seen. No focal acute process. Heart and great vessels stable. Central large airways patent. Bones appear intact. No acute process seen in the visualized portions of the upper abdomen. IMPRESSION: Irregular consolidative/scarring changes in the left upper lobe a small effusion appears slightly more consolidated but not clearly changed in size. Continued surveillance recommended. Reviewed, dictated and finalized at location A. SHING MACHINE OPERATOR IMPRESSION: Irregular consolidative/scarring changes in the left upper lobe a small effusion appears slightly more consolidated but not clearly changed in si ze. Continued surveillance recommended.
== END 2025-09-25 12:32 | disposition home or self-care (01) ==
PROVIDERS: PCP Family Medicine; Visit Provider Physician Assistant Medical
DX: C34.2 Malignant neoplasm of middle lobe, bronchus or lung (principal); J98.4 Other disorders of lung; J90 Pleural effusion, not elsewhere classified
CPT/HCPCS: 71250